=== PATIENT | female | born 1980 | race Caucasian/White ===

== ENCOUNTER 2019-11-26 08:05 | Outpatient (REF) | payer OTHER, SELFPAY ==
--- NOTE | 2019-11-26 08:25 | EMG_ITS ---
Bilateral tibial and peroneal motor studies were performed. Bilateral superficial peroneal, sural, median, lateral, plantar sensory studies were performed. Tibial H reflexes were obtained and paraspinal muscles were tested with a needle. IMPRESSION: Mild axonal sensorimotor peripheral neuropathy with no evidence of tarsal tunnel syndrome or radiculopathy. MD DELMA Cruz/ARIC / [id number]
== END 2019-11-26 08:06 | disposition home or self-care (01) ==
LOC: HO.NEURO 08:05
PROVIDERS: PCP Internal Medicine; Visit Provider Internal Medicine
DX: M79.672 Pain in left foot (principal); M79.671 Pain in right foot
CPT/HCPCS: 95860; 95861; 95913

== ENCOUNTER → 2019-12-07 13:03 | Outpatient (REF) | payer OTHER, SELFPAY | LOC: HO.SL 13:03 | PROVIDERS: PCP Internal Medicine; Visit Provider Internal Medicine | DX: Z13.89 Encounter for screening for other disorder (principal) ==

== ENCOUNTER 2020-02-21 09:36 | Emergency (ER) | payer OTHER, SELFPAY ==
[2020-02-21 09:44] VITALS: BP 116/70; BP 135/86; PULSE 66; PULSE 67; RESP 18; TEMP 36.6; O2SAT 100; O2SAT 96; BMI 28.1
--- NOTE | 2020-02-21 09:54 | ED.ABDPAIN ---
HPI - Abdominal Pain General Chief Complaint: Abdominal Pain Stated Complaint: EPIGASTRIC PAIN PER EMS Time Seen by Provider: 02/21/20 09:52 Source: patient Mode of arrival: EMS Limitations: no limitations History of Present Illness HPI narrative: This is a 39 years old female arrives by ambulance with a chief complaint of epigastric abdominal pain nausea vomiting and diarrhea since yesterday. She received 4 mg of Zofran by EMS. Pain is localized in the epigastric area without radiation MD elicited complaint: abdominal pain Pertinent past history: none Onset (ago): hour(s) (12) Pain Consistency: constant Location: epigastric Severity: mild Quality: cramping Radiation: none Migration to: no migration Relieving factors: nothing Related Data Home Medications Medication Instructions Recorded Confirmed ergocalciferol (vitamin D2) 1,250 1,250 mcg PO QWEEK 01/28/20 mcg (50,000 unit) capsule gabapentin 300 mg capsule mg PO 01/28/20 meclizine 25 mg tablet mg PO 01/28/20 omeprazole 20 mg capsule,delayed 20 mg PO QAM 01/28/20 release vitamin with calcium 1 tab PO DAILY 01/28/20 no.72-iron 27 mg-folic acid 1 mg tablet Previous Rx's Medication Instructions Recorded azithromycin 250 mg tablet 250 mg PO DAILY 5 Days #6 tab 01/28/20 cetirizine 10 mg capsule 10 mg PO DAILY 15 Days #15 cap 01/28/20 clotrimazole 2 % vaginal cream 1 appful VAGINAL BEDTIME 3 Days 01/28/20 #21 g oxycodone 5 mg PO Q8H PRN #12 cap 02/21/20 Allergies Allergy/AdvReac Type Severity Reaction Status Date / Time aspirin [ASPIRIN] Allergy Unknown UNKNOWN, Unverified 11/05/19 19:08 swelling penicillin V Allergy Unknown rash Unverified 07/16/19 00:00 shellfish derived Allergy Unknown UNKNOWN Unverified 11/05/19 19:08 [SHELLFISH DERIVED] Shrimp Allergy Unknown anaphylaxis Uncoded 07/16/19 00:00 tape of ekg trace Allergy Unknown rash Uncoded 07/16/19 00:00 Review of Systems Review of Systems Denies any fever, chills, chest pain urinary symptoms Yes all other systems are reviewed and are negative Physical Exam Vital Signs: Vital Signs: Last Vital Signs Temp 98.3 F 02/21/20 15:50 Pulse 85 02/21/20 15:50 Resp 16 02/21/20 15:50 BP 116/65 02/21/20 15:50 Pulse Ox 100 02/21/20 15:50 Body Mass Index 28.1 Const: General: cooperative and healthy appearing Orientation/consciousness: oriented to person, oriented to place and oriented to time HENMT: Head: Yes normal to inspection Eyes: General: appearance normal, both eyes and all related structures Neck: Neck: Yes normal visual inspection, Yes full ROM, Yes no lymphadenopathy and Yes no meningeal signs Chest: Chest palpation & inspection: normal inspection of the chest Resp: Effort & Inspection: normal respiratory effort Auscultation: clear to auscultation bilaterally Cardio: Jugular venous distension: no JVD Palpation: normal PMI GI: Inspection: Yes normal to inspection Palpation (GI): Soft to palpation and Tenderness to palpation present (GI) (epigastric area) Skin: General skin exam: no rashes or lesions noted Neuro: General: oriented to person, oriented to place, oriented to time and no meningeal signs Extrem: General: Yes normal to inspection, Yes full ROM and Yes capillary refill normal Psych: Appearance: grossly normal Mental Status: mental status grossly normal Course Course Course Narrative: Patient is feeling better at this time a CT scan of the abdomen and pelvis not acute disease a normal appendix we will discharge the patient home She did have low bicarb 16 mm but she received 2 L of normal saline before discharge she was tolerating p.o. well MDM - Abdominal Pain Lab Data Result diagrams: 02/21/20 11:27 02/21/20 11:27 Labs: Lab Results 02/21/20 02/21/20 02/21/20 Range/Units 11:27 11:27 11:27 WBC 14.7 H (4.8-10.8) X10*3/uL RBC 4.49 (4.20-5.50) X10*6/uL Hgb 11.9 L (12.0-16.0) g/dl Hct 38.2 (37-47) % MCV 85.1 (80-98) fL MCH 26.5 L (27.0-33.0) pg MCHC 31.2 (31.0-35.0) g/dl RDW 14.0 (11.0-16.0) % Plt Count 258 (160-400) X10*3/uL MPV 10.5 (9.4-12.3) fL Immature Gran % (Auto) 0.3 (0.0-0.4) % Neut % (Auto) 86.9 H (45-73) % Lymph % (Auto) 7.3 L (20-40) % [place] % (Auto) 4.9 (2-11) % Eos % (Auto) 0.5 (0-4) % Baso % (Auto) 0.1 (0-2) % Lymph # (Auto) 1.1 L (1.2-4.9) X10*3/uL [place] # (Auto) 0.7 (0.1-1.2) X10*3/uL Eos # (Auto) 0.1 (0.0-0.4) X10*3/uL Baso # (Auto) 0.0 (0.0-0.2) X10*3/uL Abs Immat Gran (auto) 0.05 H (0.00-0.03) X10*3/uL Absolute Neuts (auto) 12.8 H (2.0-8.3) X10*3/uL Absolute Nucleated RBC 0.000 (0.0-0.012) X10*3/uL Nucleated RBC % (auto) 0.0 (0.0-0.2) /100WBC Sodium 136 (135-145) mmol/L Potassium 5.4 H (3.3-5.1) mmol/l Chloride 111 H (96-108) mmol/L Carbon Dioxide 16 L (22-29) mmol/L Anion Gap 14 (12-20) BUN 14 (9-16) mg/dL Creatinine 0.73 (0.5-1.4) mg/dL Estim Creat Clear Calc 111.4 Estimated GFR > 60 Random Glucose 110 (60-115) mg/dL Calcium 8.4 (8.4-10.2) mg/dL Total Bilirubin < 0.2 (0.0-1.0) mg/dL AST 20 (5-31) U/L ALT 11 (0-31) U/L Alkaline Phosphatase 63 (39-117) U/L Total Protein 7.6 (6.5-8.0) g/dL Albumin 4.0 (3.5-5.0) g/dL Lipase 31 (8-78) U/L Beta HCG, Quant < 2 mIU/mL Urine Color Urine Appearance Urine pH (5.0-8.0) Ur Specific [place] (1.005-1.025) Urine Protein (NEG-TRACE) MG/DL Urine Glucose (UA) (NEG) MG/DL Urine Ketones (NEG) MG/DL Urine Blood (NEG) Urine Nitrite (NEG) Ur Leukocyte Esterase (NEG) Urine RBC (0) /HPF Urine WBC (0-4) /HPF Ur Squamous Epith Cells /LPF Urine Bacteria /LPF Coronavirus (PCR) (Negative) Influenza Type A (PCR) (Negative) Influenza Type B (PCR) (Negative) RSV RNA Qual (PCR) (Negative) 02/21/20 02/21/20 Range/Units 15:52 15:52 WBC (4.8-10.8) X10*3/uL RBC (4.20-5.50) X10*6/uL Hgb (12.0-16.0) g/dl Hct (37-47) % MCV (80-98) fL MCH (27.0-33.0) pg MCHC (31.0-35.0) g/dl RDW (11.0-16.0) % Plt Count (160-400) X10*3/uL MPV (9.4-12.3) fL Immature Gran % (Auto) (0.0-0.4) % Neut % (Auto) (45-73) % Lymph % (Auto) (20-40) % [place] % (Auto) (2-11) % Eos % (Auto) (0-4) % Baso % (Auto) (0-2) % Lymph # (Auto) (1.2-4.9) X10*3/uL [place] # (Auto) (0.1-1.2) X10*3/uL Eos # (Auto) (0.0-0.4) X10*3/uL Baso # (Auto) (0.0-0.2) X10*3/uL Abs Immat Gran (auto) (0.00-0.03) X10*3/uL Absolute Neuts (auto) (2.0-8.3) X10*3/uL Absolute Nucleated RBC (0.0-0.012) X10*3/uL Nucleated RBC % (auto) (0.0-0.2) /100WBC Sodium (135-145) mmol/L Potassium (3.3-5.1) mmol/l Chloride (96-108) mmol/L Carbon Dioxide (22-29) mmol/L Anion Gap (12-20) BUN (9-16) mg/dL Creatinine (0.5-1.4) mg/dL Estim Creat Clear Calc Estimated GFR Random Glucose (60-115) mg/dL Calcium (8.4-10.2) mg/dL Total Bilirubin (0.0-1.0) mg/dL AST (5-31) U/L ALT (0-31) U/L Alkaline Phosphatase (39-117) U/L Total Protein (6.5-8.0) g/dL Albumin (3.5-5.0) g/dL Lipase (8-78) U/L Beta HCG, Quant mIU/mL Urine Color YELLOW Urine Appearance CLEAR Urine pH 5.5 (5.0-8.0) Ur Specific [place] >= 1.030 H (1.005-1.025) Urine Protein NEG (NEG-TRACE) MG/DL Urine Glucose (UA) NEG (NEG) MG/DL Urine Ketones NEG (NEG) MG/DL Urine Blood TRACE (NEG) Urine Nitrite NEG (NEG) Ur Leukocyte Esterase NEG (NEG) Urine RBC 1-4 (0) /HPF Urine WBC 0 (0-4) /HPF Ur Squamous Epith Cells 1+ /LPF Urine Bacteria NONE /LPF Coronavirus (PCR) NEGATIVE (Negative) Influenza Type A (PCR) NEGATIVE (Negative) Influenza Type B (PCR) NEGATIVE (Negative) RSV RNA Qual (PCR) NEGATIVE (Negative) Discharge Plan Discharge Clinical Impression: Abdominal pain, Diarrhea Patient Disposition: Home, Self-Care Prescriptions: New oxycodone 5 mg capsule 5 mg PO Q8H PRN (Reason: pain) Qty: 12 RF: 0 No Action azithromycin 250 mg tablet 250 mg PO DAILY 5 Days Qty: 6 RF: 0 Zyrtec 10 mg capsule 10 mg PO DAILY 15 Days Qty: 15 RF: 0 clotrimazole 2 % cream 1 appful vaginal BEDTIME 3 Days Qty: 21 RF: 0 Referrals: [place] Leatha,Harper, MD [Primary Care Provider] - 2 days (Please follow-up with your primary care physician return to the emergency room review worse, regular fluids,) Interventions: ED Discharge Assessment Last Done: 02/21/20 16:21 Discharge Date/Time: 02/21/20 16:22 [facility] Past Medical History Medical History (Updated 02/22/20 @ 00:00 by Ray Valenzuela) Sinusitis Social History Social History Smoking Status: Never smoker Use of substances other than those prescribed or required for medical reasons: No Advance Directives: No Advance Directives Information Provided: No
[2020-02-21] MEDS: 0.9 % Sodium Chloride 1,000 ML 999 ML IVCONT (10:11)
[2020-02-21] MEDS: Morphine Sulfate 4 MG/ML CARTRIDGE IVPUSH (10:12)
[2020-02-21 10:51] VITALS: BP 121/66; PULSE 63; RESP 18; O2SAT 96
--- NOTE | 2020-02-21 10:52 | PC.NURSE ---
pt sleeping, but easily arousable, pt reports no pain relief after the morphine, pain 10/10. no vomiting since the arrival to the hospital
--- NOTE | 2020-02-21 10:55 | PC.NURSE ---
attempted x2 to draw bloods but pt is a hard stick
[2020-02-21 11:38] LABS: Basophils Percent Auto 0.1 % (0-2); Eosinophils Absolute Auto 0.1 X10*3/uL (0.0-0.4); Eosinophils Percent Auto 0.5 % (0-4); Hematocrit 38.2 % (37-47); Hemoglobin 11.9 g/dl (12.0-16.0); Imm Gran Abs Auto 0.05 X10*3/uL (0.00-0.03); Imm Gran Pct Auto 0.3 % (0.0-0.4); Lymphocytes Absolute Auto 1.1 X10*3/uL (1.2-4.9); Lymphocytes Percent Auto 7.3 % (20-40); MANUAL DIFF FLAG NO; Mean Corpuscular HGB Conc 31.2 g/dl (31.0-35.0); Mean Corpuscular Hemoglobin 26.5 pg (27.0-33.0); Mean Corpuscular Volume 85.1 fL (80-98); Mean Platelet Volume 10.5 fL (9.4-12.3); Monocytes Absolute Auto 0.7 X10*3/uL (0.1-1.2); Monocytes Percent Auto 4.9 % (2-11); Neutrophils Absolute Auto 12.8 X10*3/uL (2.0-8.3); Neutrophils Percent Auto 86.9 % (45-73); Platelet Count 258 X10*3/uL (160-400); Red Blood Count 4.49 X10*6/uL (4.20-5.50); White Blood Count 14.7 X10*3/uL (4.8-10.8)
[2020-02-21 12:08] LABS: HCG Quantitative < 2 mIU/mL
[2020-02-21 12:13] LABS: Alanine Aminotransferase 11 U/L (0-31); Alkaline Phosphatase 63 U/L (39-117); Anion Gap 14 (12-20); Aspartate Amino Transferase 20 U/L (5-31); Bilirubin Total < 0.2 mg/dL (0.0-1.0); Blood Urea Nitrogen 14 mg/dL (9-16); Calcium 8.4 mg/dL (8.4-10.2); Carbon Dioxide 16 mmol/L (22-29); Chloride 111 mmol/L (96-108); Creatinine Clr Calc Pharmacy 111.4; Estimated Glomerular Filt Rate > 60; Glucose Random 110 mg/dL (60-115); Lipase 31 U/L (8-78); Potassium 5.4 mmol/l (3.3-5.1); Sodium 136 mmol/L (135-145); Total Protein 7.6 g/dL (6.5-8.0)
--- NOTE | 2020-02-21 12:54 | CT_ITS ---
EXAMINATION: CT ABDOMEN AND PELVIS WITH CONTRAST CLINICAL INFORMATION: Pain COMPARISON: None TECHNIQUE: Multidetector volumetric images were obtained from the superior aspect of the liver through the pubic symphysis following administration 85 mL of Omnipaque 350 intravenous contrast. Sagittal and coronal reformatted images were obtained on the technologist's workstation. Oral contrast: No This CT examination was performed using dose optimization techniques as appropriate, variously including the following: *Automated exposure control *Adjustment of mA and/or kV according to patient size (this includes techniques or standardized protocols for targeted exams where dose is matched to indication/reason for exam; i.e. extremities or head) *Use of iterative reconstruction technique DLP: 780 mGy-cm FINDINGS: LUNG BASES: The visualized lung bases are unremarkable. LIVER, GALLBLADDER, AND BILIARY TREE: The liver is normal in size, shape, and attenuation. No focal hepatic lesion or biliary ductal dilatation is present. The gallbladder is unremarkable with no evidence of radiopaque gallstones, gallbladder wall thickening, or obvious pericholecystic inflammatory changes. PANCREAS: Unremarkable. SPLEEN: Unremarkable. ADRENAL GLANDS: Unremarkable. KIDNEYS AND URETERS: The kidneys are normal in size, shape, and attenuation. No hydronephrosis, hydroureter, or calculi seen. No perinephric stranding. BLADDER: Unremarkable. GASTROINTESTINAL TRACT: Fluid-filled large bowel without evidence for any bowel wall thickening or active inflammation. Equivocal mild inflammation of the ileal loops within the pelvis. Appendix normal. No definite bowel wall thickening. ABDOMINAL WALL: No significant hernia is appreciated. LYMPH NODES: Normal. VASCULAR: Unremarkable. PELVIC VISCERA: Unremarkable. OSSEOUS STRUCTURES: Unremarkable. CT/CT abdomen pelvis w con IMPRESSION: No definitive significant findings. There is disordered motility with likely minimal changes of nonspecific enterocolitis as detailed above.
[2020-02-21 14:34] VITALS: BP 113/73; PULSE 84; RESP 18; O2SAT 100
--- NOTE | 2020-02-21 14:35 | PC.NURSE ---
pt sound asleep, respirations even and unlabored, pt easily arousbale reports lower abd pain now instead of the epigastric area, states having diarrhea x2 since in the ed, watery diarrhea
[2020-02-21] MEDS: iohexoL 350 MG/ML 100 ML INFUS..BTL IV (15:10)
[2020-02-21 15:50] VITALS: BP 116/65; PULSE 85; RESP 16; TEMP 36.8; O2SAT 100
[2020-02-21 16:16] LABS: Appearance Urine CLEAR; Color Urine YELLOW; Glucose Urine UA NEG (NEG); Leukocyte Esterase Urine NEG (NEG); Nitrite Urine NEG (NEG); PH 5.5 (5.0-8.0); Specific Gravity - Urine >= 1.030 (1.005-1.025); Urine Blood TRACE (NEG); Urine Ketones NEG (NEG); Urine Protein NEG (NEG-TRACE)
[2020-02-21 16:37] LABS: Squamous Epithelial Cell Urine 1+ /LPF; WBC Urine 0 /HPF (0-4)
[2020-02-21 16:41] LABS: Influenza A PCR NEGATIVE (Negative); Influenza B PCR NEGATIVE (Negative); Resp Syncy Virus RNA Qual PCR NEGATIVE (Negative); SARS COV2 PCR INHOUSE NEGATIVE (Negative)
== END 2020-02-21 16:22 | disposition home or self-care (01) ==
PROVIDERS: Emergency Provider Emergency Medicine; PCP Internal Medicine
DX: R10.13 Epigastric pain (principal); R19.7 Diarrhea, unspecified; Z79.899 Other long term (current) drug therapy; Z20.828 Contact with and (suspected) exposure to other viral communicable diseases
CPT/HCPCS: 0241U; 36415; 74177; 80053; 81001; 83690; 84702; 85025; 96361; 96374; 99284; J2270; Q9967

== ENCOUNTER 2020-02-23 14:42 | Outpatient (REF) | payer OTHER, SELFPAY ==
--- NOTE | 2020-02-23 14:49 | MM_ITS ---
EXAMINATION: MM SCREENING DIGITAL BREAST TOMOSYNTHESIS, BILATERAL CLINICAL INFORMATION: Screening. Asymptomatic. Age 39. No prior breast imaging. No known family history breast cancer. The lifetime risk of breast cancer based on the Tyrer-Cuzick Model is 9%. COMPARISON: None (current study represents initial baseline exam). TECHNIQUE: Digital breast tomosynthesis is performed in both the craniocaudal and mediolateral oblique views along with computer-aided detection (CAD). Synthesized 2D images are generated from the tomosynthesis. Additional exaggerated left CC view is provided. FINDINGS: There are scattered areas of fibroglandular density (ACR BI-RADS breast composition Category b). There are no significant masses, abnormal calcifications, or other abnormalities. The axilla and skin contours are unremarkable. MM/MM tomosynthesis screening BI IMPRESSION: No mammographic evidence of malignancy. ASSESSMENT: BI-RADS 1: Negative RECOMMENDATION: Routine annual mammography screening. This patient's information was entered into a reminder system with a target due date for their next mammogram.
== END 2020-02-23 14:43 | disposition home or self-care (01) ==
LOC: HO.MAMMO 14:42
PROVIDERS: Visit Provider Internal Medicine
DX: Z12.31 Encounter for screening mammogram for malignant neoplasm of breast (principal)
CPT/HCPCS: 77063; 77067

== ENCOUNTER 2020-03-31 11:01 | Outpatient (REF) | payer OTHER, SELFPAY ==
[2020-03-31 17:10] LABS: MANUAL DIFF FLAG NO
[2020-03-31 17:15] LABS: Basophils Percent Auto 0.4 % (0-2); Eosinophils Absolute Auto 0.3 X10*3/uL (0.0-0.4); Eosinophils Percent Auto 3.4 % (0-4); Hematocrit 35.6 % (37-47); Hemoglobin 11.5 g/dl (12.0-16.0); Imm Gran Abs Auto 0.02 X10*3/uL (0.00-0.03); Imm Gran Pct Auto 0.2 % (0.0-0.4); Lymphocytes Absolute Auto 2.3 X10*3/uL (1.2-4.9); Lymphocytes Percent Auto 28.5 % (20-40); Mean Corpuscular HGB Conc 32.3 g/dl (31.0-35.0); Mean Corpuscular Hemoglobin 26.7 pg (27.0-33.0); Mean Corpuscular Volume 82.6 fL (80-98); Mean Platelet Volume 10.4 fL (9.4-12.3); Monocytes Absolute Auto 0.7 X10*3/uL (0.1-1.2); Monocytes Percent Auto 7.9 % (2-11); Neutrophils Absolute Auto 4.9 X10*3/uL (2.0-8.3); Neutrophils Percent Auto 59.6 % (45-73); Platelet Count 294 X10*3/uL (160-400); Red Blood Count 4.31 X10*6/uL (4.20-5.50); Red Cell Distribution Width 13.9 % (11.0-16.0); White Blood Count 8.2 X10*3/uL (4.8-10.8)
[2020-03-31 17:48] LABS: Anion Gap 11 (12-20); Blood Urea Nitrogen 10 mg/dL (9-16); C Reactive Protein 0.22 mg/dL (< or = 0.50); Carbon Dioxide 24 mmol/L (22-29); Chloride 109 mmol/L (96-108); Estimated Glomerular Filt Rate > 60; Glucose Fasting 91 mg/dL (60-99); Potassium 3.9 mmol/L (3.3-5.1); Sodium 140 mmol/L (135-145)
== END 2020-03-31 11:02 | disposition home or self-care (01) ==
LOC: HO.LAB 11:01
PROVIDERS: Absent Provider Internal Medicine; PCP Internal Medicine; Visit Provider Nurse Practitioner
DX: R19.7 Diarrhea, unspecified (principal); R10.9 Unspecified abdominal pain; K21.9 Gastro-esophageal reflux disease without esophagitis; J32.9 Chronic sinusitis, unspecified
CPT/HCPCS: 36415; 80048; 85025; 86140; 87045; 87046; 87077; 87324; 87449

== ENCOUNTER → 2020-04-20 15:44 | Outpatient (BNVA) | payer OTHER, SELFPAY | PROVIDERS: PCP Internal Medicine; Visit Provider Nurse Practitioner ==

== ENCOUNTER → 2020-04-25 14:33 | Outpatient (BNVA) | payer OTHER, SELFPAY | PROVIDERS: PCP Internal Medicine; Visit Provider Nurse Practitioner | CPT/HCPCS: 99212 ==

== ENCOUNTER → 2020-05-11 14:00 | Outpatient (BNVA) | payer OTHER, SELFPAY | PROVIDERS: PCP Internal Medicine; Visit Provider Nurse Practitioner | DX: R10.9 Unspecified abdominal pain (principal); K59.00 Constipation, unspecified; K21.9 Gastro-esophageal reflux disease without esophagitis; K52.9 Noninfective gastroenteritis and colitis, unspecified; Z79.899 Other long term (current) drug therapy | CPT/HCPCS: 99212 ==

== ENCOUNTER 2020-06-09 | Emergency (ER) | payer OTHER, SELFPAY ==
[2020-06-09 00:23] VITALS: BP 137/85; PULSE 80; RESP 18; TEMP 36.9; O2SAT 100; BMI 28.5
[2020-06-09 00:48] LABS: Glucose Urine UA NEG (NEG); Leukocyte Esterase Urine NEG (NEG); Nitrite Urine NEG (NEG); PH 5.5 (5.0-8.0); Specific Gravity - Urine >= 1.030 (1.005-1.025); Urine Blood NEG (NEG); Urine Ketones 15 MG/DL (NEG); Urine Protein NEG (NEG-TRACE)
[2020-06-09 00:56] LABS: Appearance Urine CLEAR; Color Urine YELLOW
[2020-06-09 00:58] LABS: UPreg QC Valid YES; Urine Pregnancy POSITIVE (NEGATIVE)
--- NOTE | 2020-06-09 02:29 | ED.GENADULT ---
HPI - General Adult General Chief complaint: Abdominal Pain Stated complaint: Abd pain/5 weeks Time Seen by Provider: 06/09/20 02:27 Source: patient Mode of arrival: ambulatory Limitations: no limitations Related Data Home Medications Medication Instructions Recorded Confirmed ergocalciferol (vitamin D2) 1,250 1,250 mcg PO QWEEK 01/28/20 05/16/20 mcg (50,000 unit) capsule gabapentin 300 mg capsule mg PO 01/28/20 05/16/20 meclizine 25 mg tablet mg PO 01/28/20 05/16/20 vitamin with calcium 1 tab PO DAILY 01/28/20 05/16/20 no.72-iron 27 mg-folic acid 1 mg tablet Previous Rx's Medication Instructions Recorded cetirizine 10 mg capsule 10 mg PO DAILY 15 Days #15 cap 01/28/20 clotrimazole 2 % vaginal cream 1 appful VAGINAL BEDTIME 3 Days 01/28/20 #21 g Lactobacillus rhamnosus GG 10 1 cap PO DAILY 30 Days #30 cap 04/25/20 billion cell capsule sennosides 8.6 mg-docusate sodium 2 tab-cap PO BEDTIME 30 Days #60 04/25/20 50 mg tablet tab omeprazole 40 mg capsule,delayed 40 mg PO BID 30 Days #60 cap 05/11/20 release dicyclomine 20 mg tablet 20 mg PO QID #120 tab 05/24/20 Allergies Allergy/AdvReac Type Severity Reaction Status Date / Time aspirin [ASPIRIN] Allergy Unknown UNKNOWN, Verified 06/09/20 00:23 swelling penicillin V Allergy Unknown rash Verified 06/09/20 00:23 shrimp Allergy anaphlaxysi Verified 06/09/20 00:23 s tape of ekg trace Allergy Unknown rash Uncoded 06/09/20 00:23 [facility] Past Medical History Medical History (Updated 05/16/20 @ 14:49 by Fiona Zhang MD) Dizziness Ear discomfort Enterocolitis Sinusitis Surgical History No history of previous surgery Family History Family History Father Cancer Mother Diabetes Maternal Grandmother Cancer Paternal Grandmother Cancer Social History Social History (Updated 05/16/20 @ 13:30 by Fiona Zhang MD) Alcohol intake: former Smoking Status: Former smoker Tobacco Type: Cigarette Advance Directives: No Advance Directives Information Provided: Yes Physical Exam Vital Signs: Vital Signs: Last Vital Signs Temp 98.4 F 06/09/20 00:23 Pulse 80 06/09/20 00:23 Resp 18 06/09/20 00:23 BP 137/85 06/09/20 00:23 Pulse Ox 100 06/09/20 00:23 Body Mass Index 28.5 Medical Decision Making Lab Data Labs: Lab Results 06/09/20 06/09/20 Range/Units 00:35 00:35 Urine Color YELLOW Urine Appearance CLEAR Urine pH 5.5 (5.0-8.0) Ur Specific [place] >= 1.030 H (1.005-1.025) Urine Protein NEG (NEG-TRACE) MG/DL Urine Glucose (UA) NEG (NEG) MG/DL Urine Ketones 15 (NEG) MG/DL Urine Blood NEG (NEG) Urine Nitrite NEG (NEG) Ur Leukocyte Esterase NEG (NEG) Urine Test POSITIVE H (NEGATIVE) Discharge Plan Discharge Prescriptions: No Action dicyclomine 20 mg tablet 20 mg PO QID Qty: 120 RF: 2 meclizine 25 mg tablet PO RF: 0 gabapentin 300 mg capsule PO RF: 0 ergocalciferol (vitamin D2) 1,250 mcg (50,000 unit) capsule 1,250 mcg PO QWEEK RF: 0 Vitamin Plus Low Iron 27 mg iron- 1 mg tablet 1 tab PO DAILY RF: 0 Zyrtec 10 mg capsule 10 mg PO DAILY 15 Days Qty: 15 RF: 0 clotrimazole 2 % cream 1 appful vaginal BEDTIME 3 Days Qty: 21 RF: 0 omeprazole 40 mg capsule,delayed release(DR/EC) 40 mg PO BID 30 Days Qty: 60 RF: 4 sennosides-docusate sodium [Lax Stool Softener With Senna] 8.6-50 mg tablet 2 tab-cap PO BEDTIME 30 Days Qty: 60 RF: 6 Culturelle 10 billion cell capsule 1 cap PO DAILY 30 Days Qty: 30 RF: 6
--- NOTE | 2020-06-09 02:31 | PC.NURSE ---
Patient left without being seen by ED provider. Ambulated with steady gait out of ED, encouraged to stay by this RN. Staff Meat Scrubber also present for interaction. Pt refused to stay for evaluation, and ambulated out of ED stating no, I'm not staying, and I'm not waiting for a doctor, I'm leaving . lehr operator (Ishmael Velarde) aware.
== END 2020-06-09 02:34 | disposition left against medical advice (07) ==
PROVIDERS: Internal Medicine; Emergency Provider Emergency Medicine Emergency Medical Services; PCP Internal Medicine
DX: O26.891 Other specified pregnancy related conditions, first trimester (principal); R10.9 Unspecified abdominal pain; O09.521 Supervision of elderly multigravida, first trimester; Z3A.01 Less than 8 weeks gestation of pregnancy
CPT/HCPCS: 81003; 81025; 99282; 99283

== ENCOUNTER → 2020-09-08 08:54 | Outpatient (BNVA) | payer OTHER, SELFPAY | PROVIDERS: Visit Provider Nurse Practitioner ==

== ENCOUNTER → 2021-01-10 13:20 | Outpatient (BNVA) | payer OTHER, SELFPAY | PROVIDERS: Visit Provider Nurse Practitioner | DX: K59.00 Constipation, unspecified (principal); K21.9 Gastro-esophageal reflux disease without esophagitis; R10.9 Unspecified abdominal pain; R19.7 Diarrhea, unspecified ==

== ENCOUNTER → 2021-05-17 11:06 | Outpatient (BNVA) | payer OTHER, SELFPAY | PROVIDERS: PCP Internal Medicine; Visit Provider Nurse Practitioner Family | DX: M54.12 Radiculopathy, cervical region (principal); M79.18 Myalgia, other site | CPT/HCPCS: 99212 ==

== ENCOUNTER → 2021-05-25 13:42 | Outpatient (REF) | payer OTHER, SELFPAY ==
--- NOTE | 2021-05-25 13:47 | ECG_ITS ---
Test Reason : PRECORDIAL PAIN Blood Pressure : / mmHG Vent. Rate : 065 BPM Atrial Rate : 065 BPM P-R Int : 130 ms QRS Dur : 082 ms QT Int : 436 ms P-R-T Axes : 064 066 062 degrees QTc Int : 453 ms Normal sinus rhythm with sinus arrhythmia Normal ECG When compared with ECG of 16-SEP-2017 10:12, No significant change was found Referred By: Fiona Zhang Electronically Signed By:DAVE THOMAS MD
== END ==
LOC: HO.CARD 13:42
PROVIDERS: PCP Internal Medicine; Visit Provider Internal Medicine
DX: R07.2 Precordial pain (principal)
CPT/HCPCS: 93005

== ENCOUNTER → 2021-05-29 10:58 | Outpatient (BNVA) | payer OTHER, SELFPAY | PROVIDERS: PCP Internal Medicine | DX: N39.3 Stress incontinence (female) (male) (principal) | CPT/HCPCS: 51798; 99202 ==

== ENCOUNTER → 2021-07-04 14:54 | Outpatient (BNVA) | payer OTHER, SELFPAY | PROVIDERS: PCP Internal Medicine; Visit Provider Nurse Practitioner Family | DX: Z13.89 Encounter for screening for other disorder (principal) ==

== ENCOUNTER → 2021-08-30 08:50 | Outpatient (BNVA) | payer OTHER, SELFPAY | PROVIDERS: PCP Internal Medicine; Visit Provider Nurse Practitioner Family | DX: M79.18 Myalgia, other site (principal); M54.12 Radiculopathy, cervical region; R29.898 Other symptoms and signs involving the musculoskeletal system | CPT/HCPCS: 20552; 99212; J3300 ==

== ENCOUNTER → 2021-08-31 10:02 | Outpatient (BNVA) | payer OTHER, SELFPAY | PROVIDERS: PCP Internal Medicine; Visit Provider Nurse Practitioner Family | DX: R06.83 Snoring (principal); R06.81 Apnea, not elsewhere classified; R40.0 Somnolence; F41.9 Anxiety disorder, unspecified | CPT/HCPCS: 99202 ==

== ENCOUNTER 2021-09-14 09:05 | Outpatient (REF) | payer OTHER, SELFPAY ==
--- NOTE | 2021-09-14 | EMG_ITS ---
Left median and ulnar motor and sensory studies were performed, left radial sensory study was performed, and paraspinal and limb muscles were tested with a needle. IMPRESSION: This study did not reveal any significant abnormality to suggest entrapment neuropathy or radiculopathy. MD DELMA Cruz/ARIC / [id number]
== END 2021-09-14 09:06 | disposition home or self-care (01) ==
LOC: HO.NEURO 09:05
PROVIDERS: PCP Internal Medicine; Visit Provider Nurse Practitioner Family
DX: R29.898 Other symptoms and signs involving the musculoskeletal system (principal); M54.12 Radiculopathy, cervical region
CPT/HCPCS: 95886; 95910

== ENCOUNTER → 2021-09-19 14:01 | Outpatient (BNVA) | payer OTHER, SELFPAY | PROVIDERS: PCP Internal Medicine; Visit Provider Nurse Practitioner | DX: K59.00 Constipation, unspecified (principal); K57.92 Diverticulitis of intestine, part unspecified, without perforation or abscess without bleeding; K21.9 Gastro-esophageal reflux disease without esophagitis; Z79.899 Other long term (current) drug therapy | CPT/HCPCS: 99212 ==

== ENCOUNTER 2021-09-20 08:59 | Outpatient (REF) | payer OTHER, SELFPAY ==
--- NOTE | ~2021-09-20 | MM_ITS ---
EXAMINATION: MM SCREENING DIGITAL BREAST TOMOSYNTHESIS, BILATERAL CLINICAL INFORMATION: Screening. Asymptomatic. The lifetime risk of breast cancer based on the Tyrer-Cuzick Model is 8%. COMPARISON: Mammography: 02/23/2020 (baseline) TECHNIQUE: Digital breast tomosynthesis is performed in both the craniocaudal and mediolateral oblique views along with computer-aided detection (CAD). Synthesized 2D images are generated from the tomosynthesis. FINDINGS: There are scattered areas of fibroglandular density (ACR BI-RADS breast composition Category b). There are no significant masses, abnormal calcifications, or other abnormalities. Parenchymal pattern is similar to baseline exam. No developing density. The axilla are unremarkable. MM/MM tomosynthesis screening BI IMPRESSION: No mammographic evidence of malignancy. ASSESSMENT: BI-RADS 1: Negative RECOMMENDATION: Routine annual mammography screening. This patient's information was entered into a reminder system with a target due date for their next mammogram.
== END 2021-09-20 09:00 | disposition home or self-care (01) ==
LOC: HO.MAMMO 08:59
PROVIDERS: PCP Internal Medicine; Visit Provider Internal Medicine
DX: Z12.31 Encounter for screening mammogram for malignant neoplasm of breast (principal)
CPT/HCPCS: 77063; 77067

== ENCOUNTER 2021-10-04 15:32 | Outpatient (REF) | payer OTHER, SELFPAY ==
[2021-10-04 16:01] LABS: MANUAL DIFF FLAG NO
[2021-10-04 17:03] LABS: Basophils Percent Auto 0.5 % (0-2); Eosinophils Absolute Auto 0.2 X10*3/uL (0.0-0.4); Eosinophils Percent Auto 2.9 % (0-4); Hematocrit 39.8 % (37.0-47.0); Hemoglobin 13.3 g/dl (12.0-16.0); Imm Gran Abs Auto 0.02 X10*3/uL (0.00-0.03); Imm Gran Pct Auto 0.3 % (0.0-0.4); Lymphocytes Percent Auto 25.6 % (20-40); Mean Corpuscular HGB Conc 33.4 g/dl (31.0-35.0); Mean Corpuscular Hemoglobin 28.5 pg (27.0-33.0); Mean Corpuscular Volume 85.4 fL (80.0-98.0); Mean Platelet Volume 10.9 fL (9.4-12.3); Monocytes Absolute Auto 0.6 X10*3/uL (0.1-1.2); Monocytes Percent Auto 7.5 % (2-11); Neutrophils Absolute Auto 4.8 x10*3/uL (2.0-8.3); Neutrophils Percent Auto 63.2 % (45-73); Platelet Count 288 X10*3/uL (160-400); Red Blood Count 4.66 X10*6/uL (4.20-5.50); Red Cell Distribution Width 13.3 % (11.0-16.0); White Blood Count 7.6 X10*3/uL (4.8-10.8)
[2021-10-04 17:28] LABS: Alanine Aminotransferase 11 U/L (0-31); Albumin Level 4.4 g/dL (3.5-5.0); Alkaline Phosphatase 73 U/L (39-117); Anion Gap 15 (12-20); Aspartate Amino Transferase 17 U/L (5-31); Bilirubin Total 0.2 mg/dL (0.0-1.0); Blood Urea Nitrogen 12 mg/dL (9-16); Calcium 9.3 mg/dL (8.4-10.2); Carbon Dioxide 23 mmol/L (22-29); Chloride 105 mmol/L (96-108); Cholesterol 238 mg/dL; Estimated Glomerular Filt Rate > 60; Glucose Fasting 93 mg/dL (60-99); HDL Cholesterol 42 mg/dL; LDL Cholesterol Calculated 157 mg/dl; Potassium 4.2 mmol/L (3.3-5.1); Sodium 139 mmol/L (135-145); Total Protein 7.9 g/dL (6.5-8.0); Triglycerides 199 mg/dL
[2021-10-04 17:49] LABS: Thyroid Stimulating Hormone 1.87 uIU/mL (0.32-4.0)
== END 2021-10-04 15:33 | disposition home or self-care (01) ==
LOC: HO.LAB 15:32
PROVIDERS: PCP Internal Medicine; Visit Provider Internal Medicine
DX: Z00.00 Encounter for general adult medical examination without abnormal findings (principal); R00.0 Tachycardia, unspecified; K57.92 Diverticulitis of intestine, part unspecified, without perforation or abscess without bleeding; K59.00 Constipation, unspecified; K21.9 Gastro-esophageal reflux disease without esophagitis; K59.04 Chronic idiopathic constipation; R10.12 Left upper quadrant pain
CPT/HCPCS: 36415; 80053; 80061; 84443; 85025; 99212

== ENCOUNTER → 2021-10-19 14:30 | Outpatient (BNVA) | payer OTHER, SELFPAY | PROVIDERS: PCP Internal Medicine; Visit Provider Nurse Practitioner | DX: K59.04 Chronic idiopathic constipation (principal); K57.92 Diverticulitis of intestine, part unspecified, without perforation or abscess without bleeding; K21.9 Gastro-esophageal reflux disease without esophagitis | CPT/HCPCS: 99212 ==

== ENCOUNTER → 2021-10-25 13:30 | Outpatient (REF) | payer OTHER, SELFPAY ==
--- NOTE | 2021-10-25 13:33 | ECG_ITS ---
Hook-up date: 2021-10-25 12:49:00 Duration: 25:27:00 Test Indications: TACHYCARDIA Medications: 32767 QRS complexes 9 Ventricular ectopics which represent <1 % of total QRS comp. 98 Supraventricular ectopics which represent <1 % of total QRS comp. * Paced QRS complexs which represent % of total QRS comp. VENTRICULAR ECTOPY 9 Isolated 0 Bigeminal Cycles 0 Couplets 0 Runs 0 Beats in Runs * Beats LONGEST at * BPM at :: -- * Beats FASTEST at * BPM at :: -- SUPRAVENTRICULAR ECTOPY 69 Isolated 7 Couplets 5 Runs 15 Beats in Runs 3 Beats LONGEST at 131 BPM at 01:36:05 2021-10-26 3 Beats FASTEST at 157 BPM at 01:41:17 2021-10-26 HEART RATES 56 MIN at 07:04:55 2021-10-26 86 AVG 139 MAX at 14:43:14 2021-10-25 LONGEST RR 1.0720 secs at 07:04:51 2021-10-26 S-T LEVELS Channel 1 - 128 mm at 12:49:00 2021-10-25 - 128 mm at 12:49:00 2021-10-25 Channel 2 - 128 mm at 12:49:00 2021-10-25 - 128 mm at 12:49:00 2021-10-25 Channel 3 - 128 mm at 03:20:81 -- - 128 mm at 03:20:81 Underlying rhythm is sinus; Average ventricular rate 86/min; range 56-139/min; Rare supraventricular and ventricular ectopy; Patient did not report any symptoms in the diary Referred By: Fiona Zhang Overread By: RE ELLIS
== END ==
LOC: HO.CARD 13:30
PROVIDERS: PCP Internal Medicine; Visit Provider Nurse Practitioner Family
DX: G47.33 Obstructive sleep apnea (adult) (pediatric) (principal); R00.0 Tachycardia, unspecified; R06.83 Snoring; R40.0 Somnolence
CPT/HCPCS: 93226; 95806

== ENCOUNTER → 2022-03-05 14:57 | Outpatient (BNVA) | payer OTHER, SELFPAY | PROVIDERS: PCP Internal Medicine; Visit Provider Nurse Practitioner Family | DX: G47.30 Sleep apnea, unspecified (principal) | CPT/HCPCS: 99212 ==

== ENCOUNTER 2022-04-12 13:11 | Outpatient (REF) | payer OTHER, SELFPAY ==
[2022-04-12 18:21] LABS: CT PCR NOT DETECTED (Not Detect.); NG PCR NOT DETECTED (Not Detect.)
[2022-04-13 11:11] LABS: BV Int Neg Control Negative (Negative); BV Int Pos Control Positive (Positive)
[2022-04-16 20:39] LABS: HPV mRNA E6/E7 rflx Not Detected (Not Detected)
== END 2022-04-12 13:12 | disposition home or self-care (01) ==
LOC: HO.LNP 13:11
PROVIDERS: PCP Internal Medicine; Visit Provider Advanced Practice Midwife
DX: Z01.419 Encounter for gynecological examination (general) (routine) without abnormal findings (principal); Z11.51 Encounter for screening for human papillomavirus (HPV); N89.8 Other specified noninflammatory disorders of vagina
CPT/HCPCS: 0353U; 87480; 87510; 87624; 87660; 88142

== ENCOUNTER → 2022-06-06 13:57 | Outpatient (BNVA) | payer OTHER, SELFPAY | PROVIDERS: PCP Internal Medicine; Visit Provider Nurse Practitioner Family | DX: G47.30 Sleep apnea, unspecified (principal) | CPT/HCPCS: 99212 ==

== ENCOUNTER → 2022-06-18 15:44 | Outpatient (BNVA) | payer OTHER, SELFPAY | PROVIDERS: PCP Internal Medicine; Visit Provider Nurse Practitioner Family | DX: M79.18 Myalgia, other site (principal); M54.12 Radiculopathy, cervical region; M47.812 Spondylosis without myelopathy or radiculopathy, cervical region; M25.50 Pain in unspecified joint | CPT/HCPCS: 99212 ==

== ENCOUNTER → 2022-07-25 13:35 | Outpatient (BNVA) | payer OTHER, SELFPAY | PROVIDERS: PCP Internal Medicine; Visit Provider Nurse Practitioner Family | DX: G47.30 Sleep apnea, unspecified (principal); Z91.198 Patient's noncompliance with other medical treatment and regimen for other reason | CPT/HCPCS: 99212 ==

== ENCOUNTER → 2022-08-13 11:23 | Outpatient (BNVA) | payer OTHER, SELFPAY | PROVIDERS: PCP Internal Medicine; Visit Provider Nurse Practitioner Family | DX: M47.22 Other spondylosis with radiculopathy, cervical region (principal); M54.50 Low back pain, unspecified; M79.604 Pain in right leg; M25.50 Pain in unspecified joint; M62.838 Other muscle spasm | CPT/HCPCS: 99212 ==

== ENCOUNTER 2022-08-14 11:11 | Outpatient (REF) | payer OTHER, SELFPAY ==
--- NOTE | ~2022-08-14 | XR_ITS ---
EXAMINATION: XR LUMBOSACRAL SPINE XR HIP, LEFT XR FOOT, LEFT XR WRIST, RIGHT XR FOREARM, RIGHT XR FOREARM, LEFT XR WRIST, LEFT CLINICAL INFORMATION: Lumbar radiculopathy. Pain bilateral wrists and forearms. Left hip pain. COMPARISON: Lumbosacral spine 03/07/2018. TECHNIQUE: 7 views of the lumbosacral spine inclusive of flexion and extension views, 2 views right forearm, 2 views left forearm, 3 views left foot, 4 views right wrist, AP view of the pelvis and 2 views of the left hip, 4 views left wrist. FINDINGS: LUMBOSACRAL SPINE: Lumbar vertebral body heights and disc space heights are preserved. Facet arthritis in the lower lumbar spine. Minimal spondylosis at L4 and L5. Alignment preserved on flexion and extension views. PELVIS AND LEFT HIP: Rounded pelvic calcifications are likely vascular. Mild degenerative changes bilateral hips with joint space narrowing and hypertrophic change. Small sclerotic foci overlying scattered pelvic bones including left femoral head, and right acetabular region, possibly representing bone islands. Correlation with the clinical exam recommended. Left hip alignment preserved. LEFT FOREARM AND WRIST: Mild degenerative changes 1st carpometacarpal joint with joint space narrowing and hypertrophic change. No displaced fracture of the forearm. Bone mineralization is normal. RIGHT WRIST AND FOREARM: No displaced fracture or focal bony destructive lesion of the radius/ulna. Mild degenerative changes 1st carpometacarpal joint with joint space narrowing and hypertrophic change. Triangular density in the soft tissues at the volar aspect of the metacarpals on the lateral view of the right hand. Differential considerations include foreign body versus calcific/ossific density of indeterminate age. LEFT FOOT: Mild degenerative changes 1st metatarsophalangeal joint. Alignment maintained. No displaced fracture. XR/XR lumbar spine 6V w bending IMPRESSION: 1. Mild spondylosis at L4 and L5. 2. Mild degenerative changes left hip. 3. Mild degenerative changes in the bilateral 1st carpometacarpal joints. 4. Small sclerotic foci overlying scattered pelvic bones including left femoral head, and right acetabular region, possibly representing bone islands. Correlation with the clinical exam recommended. 5. Triangular density in the soft tissues at the volar aspect of the metacarpals on the lateral view of the right hand. Differential considerations include foreign body versus calcific/ossific density of indeterminate age. Correlation with clinical exam recommended to determine further management. 6. Mild degenerative changes 1st metatarsophalangeal joint left foot. 7. No displaced fracture. Recommend follow-up imaging in 10-14 days if fracture is suspected. Additional imaging with CT scan or MRI should be considered for better visualization as these modalities are much more sensitive for detection of fracture or other underlying pathology.
== END 2022-08-14 11:12 | disposition home or self-care (01) ==
LOC: HO.XRAY 11:11
PROVIDERS: PCP Internal Medicine; Visit Provider Nurse Practitioner Family
DX: M25.552 Pain in left hip (principal); M79.672 Pain in left foot; M25.531 Pain in right wrist; M25.532 Pain in left wrist; M79.631 Pain in right forearm; M79.632 Pain in left forearm; M54.50 Low back pain, unspecified
CPT/HCPCS: 72114; 73090; 73100; 73502; 73620

== ENCOUNTER → 2022-08-17 11:55 | Day surgery (SDC) | payer OTHER, SELFPAY ==
[2022-07-24 14:11] VITALS: BMI 18.5
--- NOTE | 2022-07-25 13:48 | HO.ANESPROP2 ---
HPI - Anesthesia Eval Consult details Narrative: 42yo F for Interlaminar C6-C7 Epidural Steroid Injection PMFSH Active Problems Active Problems: All Active Problems (Updated 06/18/22 @ 16:11 by JESSICA Ugarte) Cervical spondylosis (Acute) Polyarthralgia (Acute) Left foot pain (Acute) Right wrist pain (Acute) Left wrist pain (Acute) Right forearm pain (Acute) Left forearm pain (Acute) Vaginal itching (Acute) Well woman exam with routine gynecological exam (Acute) Screen for sexually transmitted diseases (Acute) Cervical cancer screening (Acute) Sleep apnea (Acute) Mild recurrent major depression (Acute) Left hip pain (Acute) Chronic idiopathic constipation (Acute) Diverticulitis (Acute) Tachycardia (Acute) Physical exam (Acute) Anxiety (Acute) Daytime sleepiness (Acute) Witnessed episode of apnea (Acute) Snoring (Acute) Weakness of left upper extremity (Acute) Myofascial pain (Acute) Cervical radiculitis (Acute) Precordial chest pain (Acute) [place] (obstructive sleep apnea) (Acute) Back pain (Acute) Stress incontinence (Acute) Dizziness (Acute) Ear discomfort (Acute) Constipation (Acute) GERD (gastroesophageal reflux disease) (Acute) Abdominal pain (Acute) Enterocolitis (Acute) Sinusitis (Acute) Past Medical History Medical History Diarrhea Dizziness Ear discomfort Enterocolitis Precordial chest pain Sinusitis Family History Family History Father Cancer Mother Diabetes Maternal Grandmother Cancer Colon cancer Paternal Grandmother Cancer Uterine cancer Surgical History Surgical History History of esophagogastroduodenoscopy (EGD) Social History Social History Housing: Apartment Alcohol intake: former Patient Tobacco Use Status: Never used Tobacco e-Cigarette/Vaping Use: Never Used Second Hand Smoke Exposure: No service: No Current occupational status: unemployed Cognitive needs: No Hearing needs: No Vision needs: No Meds Allergies Allergy/AdvReac Type Severity Reaction Status Date / Time aspirin [ASPIRIN] Allergy Unknown UNKNOWN, Verified 06/18/22 16:06 swelling penicillin V Allergy Unknown rash Verified 06/18/22 16:06 shrimp Allergy anaphlaxysi Verified 06/18/22 16:06 s tape of ekg trace Allergy Unknown rash Uncoded 05/30/22 11:22 Home Medications Medication Instructions Recorded Confirmed Last Taken Type meclizine 25 mg tablet mg PO 01/28/20 05/30/22 Unknown History bisacodyl 5 mg tablet,delayed 10 mg PO BEDTIME 04/12/22 05/30/22 Unknown History release (Laxative (bisacodyl)) Exam Exam Date and Time: July 25, 2022 1348 Height,Weight and Vital Signs: Height 5 ft 7 in Weight 53.524 kg Assessment and Plan Assessment Anesthesia Assessment: Chart Reviewed
--- NOTE | 2022-07-26 12:42 | PC.NURSE ---
pt sts cancelled this am she stated she called the office
--- NOTE | 2022-08-16 09:47 | HO.ANESPROP2 ---
HPI - Anesthesia Eval Consult details Narrative: 42yo F for Interlaminar C6-C7 Epidural Steroid Injection PMFSH Active Problems Active Problems: All Active Problems (Updated 08/13/22 @ 12:07 by JESSICA Ugarte) Muscle spasm (Acute) Low back pain radiating to right lower extremity (Acute) Cervical spondylosis (Acute) Polyarthralgia (Acute) Left foot pain (Acute) Right wrist pain (Acute) Left wrist pain (Acute) Right forearm pain (Acute) Left forearm pain (Acute) Vaginal itching (Acute) Well woman exam with routine gynecological exam (Acute) Screen for sexually transmitted diseases (Acute) Cervical cancer screening (Acute) Sleep apnea (Acute) Mild recurrent major depression (Acute) Left hip pain (Acute) Chronic idiopathic constipation (Acute) Diverticulitis (Acute) Tachycardia (Acute) Physical exam (Acute) Anxiety (Acute) Daytime sleepiness (Acute) Witnessed episode of apnea (Acute) Snoring (Acute) Weakness of left upper extremity (Acute) Myofascial pain (Acute) Cervical radiculitis (Acute) Precordial chest pain (Acute) COLETTE (obstructive sleep apnea) (Acute) Back pain (Acute) Stress incontinence (Acute) Dizziness (Acute) Ear discomfort (Acute) Constipation (Acute) GERD (gastroesophageal reflux disease) (Acute) Abdominal pain (Acute) Enterocolitis (Acute) Sinusitis (Acute) Past Medical History Medical History Diarrhea Dizziness Ear discomfort Enterocolitis Precordial chest pain Sinusitis Family History Family History Father Cancer Mother Diabetes Maternal Grandmother Cancer Colon cancer Paternal Grandmother Cancer Uterine cancer Surgical History Surgical History History of esophagogastroduodenoscopy (EGD) Social History Social History Housing: Apartment Alcohol intake: former Patient Tobacco Use Status: Never used Tobacco e-Cigarette/Vaping Use: Never Used Second Hand Smoke Exposure: No service: No Current occupational status: unemployed Cognitive needs: No Hearing needs: No Vision needs: No Meds Allergies Allergy/AdvReac Type Severity Reaction Status Date / Time aspirin [ASPIRIN] Allergy Unknown UNKNOWN, Verified 08/13/22 11:34 swelling penicillin V Allergy Unknown rash Verified 08/13/22 11:34 shrimp Allergy anaphlaxysi Verified 08/13/22 11:34 s tape of ekg trace Allergy Unknown rash Uncoded 05/30/22 11:22 Home Medications Medication Instructions Recorded Confirmed Last Taken Type meclizine 25 mg tablet mg PO 01/28/20 05/30/22 Unknown History bisacodyl 5 mg tablet,delayed 10 mg PO BEDTIME 04/12/22 05/30/22 Unknown History release (Laxative (bisacodyl)) buspirone 5 mg tablet 5 mg PO TID 08/13/22 Unknown History fluoxetine 20 mg capsule 20 mg PO DAILY 08/13/22 Unknown History lorazepam 0.5 mg tablet 0.5 mg PO BID PRN panic attack 08/13/22 Unknown History peg-electrolyte solution 420 gram 4,000 ml PO DIRECTED 08/13/22 Unknown History oral solution Exam Exam Date and Time: August 16, 2022 0947 Height,Weight and Vital Signs: Height 5 ft 7 in Weight 53.524 kg
--- NOTE | 2022-08-17 12:04 | P.HPSUR_ITS ---
Pre-Procedural Eval Section A Date of Service: 08/17/22 The patient is an INPATIENT: No Changes since office visit: Yes Patient answered all questions The History & Physical has been completed within 30 days and I have reviewed it.: No Section B Chief Complaint: Radiculopathy, cervical region Details of Present Illness: as above Relevant Family History (Specify if Yes): No Relevant Social History: None Present Medications: None Medical History: No relevant PMH History of Previous Operations: No relevant previous surgery Allergies: Allergies Allergy/AdvReac Type Severity Reaction Status Date / Time aspirin [ASPIRIN] Allergy Unknown UNKNOWN, Verified 08/13/22 11:34 swelling penicillin V Allergy Unknown rash Verified 08/13/22 11:34 shrimp Allergy anaphlaxysi Verified 08/13/22 11:34 s tape of ekg trace Allergy Unknown rash Uncoded 05/30/22 11:22 Review of Systems Sugical H&P ROS: Negative: Constitution, Cardiovascular, Respiratory, Brenda rological, Psychiatric, Hem-Onc, Allergic/Immunologic, Gastrointestinal, Genitourinary, Musculoskeletal, Integumentary, Endocrine and Eyes/Ears/Nose/Throat Exam Surgical H&P Exam: Normal: HEENT, Normal: Heart, Normal: Lungs, Normal: Extremities, Normal: Abdomen, Normal: Skin and Normal: Neurological Plan Diagnosis/Plan: Unchanged I have reviewed the history and physical and performed a pertinent physical examination on my patient. No changes have occurred unless specified. Time Spent With Patient Time: Total time managing care of this patient today ___5_ minutes.
--- NOTE | 2022-08-17 12:09 | PC.NURSE ---
Patient had coffee with cream & sugar approx 1100. Anesthesia made aware. Per anesthesia Dr Woo, case cannot be done today with sedation. Patient offered to have procedure done under local anesthesia. Patient declined & will reschedule.
[2022-08-17 12:14] LABS: UPreg QC Valid YES; Urine Pregnancy NEGATIVE (NEGATIVE)
== END ==
PROVIDERS: Registered Nurse Emergency; PCP Internal Medicine; Visit Provider Anesthesiology
DX: M54.12 Radiculopathy, cervical region (principal); Z53.29 Procedure and treatment not carried out because of patient's decision for other reasons
CPT/HCPCS: 81025

== ENCOUNTER 2022-08-30 14:12 | Outpatient (AMB) | payer OTHER, SELFPAY ==
--- NOTE | 2022-08-30 14:17 | A.OFFVIS_ITS ---
Intake Vital Signs 08/30/22 14:22 Height 5 ft 7 in Weight 185 lb 2 oz BMI 29.0 BP 139/76 Blood Pressure Location Rt brachial Position Sitting Pulse 70 Pulse Source Pulse Oximeter Pulse Oximetry (%) 98 Oxygen Delivery Method Room Air Intake Visit Reasons: FOLLOW UP/XRAY RESULTS Intake Note: Pain today 11/27 Overlock Operator Required: Yes Overlock Operator Language: Algerian Accompanied by: Self / Same As Patient Allergies aspirin [ASPIRIN] Allergy (Unknown, Verified 08/30/22 14:21) UNKNOWN, swelling penicillin V Allergy (Unknown, Verified 08/30/22 14:21) rash shrimp Allergy (Verified 08/30/22 14:21) anaphlaxysis tape of ekg trace Allergy (Unknown, Uncoded 05/30/22 11:22) rash HPI HPI Comments History of Present Illness Details Patient presents today in the office to discuss recent lumbar spine and left hip xray results. Patient reports she also completed arm, wrist and foot xrays ordered by her PCP. PRIOR: Patient presents today for follow up for back and neck pain. She was scheduled for cervical interlaminar C6-C7 RONNIE early July but due to transportation issues could not arrive for her procedure on 07/26/22. Patient continues to endorse neck pain with bilateral radiculopathy to both arms and decreased strength in both hands, numbness and tingling, right worse than left. Her EMG for left upper extremity did not reveal any findings. No EMG done for right side. Cervical MRI showed multilevel DJD with [id number] right and mild left-sided neural foraminal stenosis and bulging discs. At c6-C7, broad-based central disc protrusion with flattening of the ventral dural sac appears slightly increased in size on current study and now abuts the ventral aspect of the spinal cord. Will consider neurosurgical evaluation if no relief with cervical RONNIE. Patient also reports right sided lower back pain radiating into her right lower extremity laterally and posteriorly. SLR testing was negative today. Patient was reminded to complete back and hip imaging that was ordered in October 2021. I will change her back xray to xray with flexion and extension view. Also recommend formal PT for lower back pain prior to interventional treatments. Denies any recent cough, cold, infection, fever or other significant changes in medical history since last office visit. Patient denies any bladder or bowel incontinence or saddle anesthesia. PRIOR: Angela returns with similar complaints of a >5 year history of LUE pain, weakness and paresthesias. She was previously seen by Dr. Pete for cervical and lumbar radiculitis. She notes having persistent and progressively worsening cramping, tingling as well as numbness. She states that it is constant on the LUE and intermittent on the right. She reports constantly dropping objects due to the weakness. She has tried gabapentin, tylenol and lidocaine patches with minimal relief. She reports having an injection, which sounds like a trigger point injection of the left cervical muscles at [facility] with no relief about one month ago. She had attended physical therapy in the past but could not continue due to exacerbation of pain and could not tolerate. PRIOR: Angela presents for initial evaluation of chronic intermittent neck, left arm, low back and left leg pain. She has been experiencing similar pain on and off since 2009 when she was in [place]. 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 Over the years her neck and low back would hurt intermittently. Eventually she developed radiating stabbing left arm and crampi ng left leg pain. She was provided with medications and injections. She is unsure what kind. She moved to the . In 2016 her pain persisted. 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 She eventually underwent xrays and a cervical MRI. She states she also had lumbar MRI but she is not sure where it was performed but was told she has she has a herniated disc. Her cervical MRI described mild left foraminal stenosis secondary to disc osteophyte complex at C7/T1 along with some other mild disc protrusions without significant encroachment. She denies any gait disturbance, weakness, saddle anesthesia, numbness, tingling, b/b disturbance, fevers, chills, or wt change. She is currently taking gabapentin and tried tramadol but stopped after it made her anxious. SHe is able to sleep through the night and perform all ADL's. Her pain ranges form 3-8/10. [facility] Medical History Diarrhea Dizziness Ear discomfort Enterocolitis Precordial chest pain Sinusitis Surgical History History of esophagogastroduodenoscopy (EGD) Family History Father Cancer Mother Diabetes Maternal Grandmother Cancer Colon cancer Paternal Grandmother Cancer Uterine cancer Social History Housing: Apartment Alcohol intake: former Patient Tobacco Use Status: Never used Tobacco e-Cigarette/Vaping Use: Never Used Second Hand Smoke Exposure: No service: No Current occupational status: unemployed Cognitive needs: No Hearing needs: No Vision needs: No Female Reproductive History Menstrual Age of Menarche: 12 Review of Systems Const All systems reviewed & are unremarkable except as noted in HPI and below Physical Exam Vital Signs: Last Vital Signs Pulse 70 08/30/22 14:22 BP 139/76 08/30/22 14:22 Pulse Ox 98 08/30/22 14:22 Oxygen Delivery Method Room Air 08/30/22 14:22 BMI result Body Mass Index 29.0 General: Appears afebrile. Alert and oriented. Mood and affect appropriate. Follows and participates in conversation appropriately. Respiratory effort is unlabored. No cough. No nasal discharge. Able to transition from sit to stand unassisted. Ambulates with bilaterally normal heel strike and toe off. Neck Other: Patient with decreased cervical ROM in all planes/especially with lateral rotations, left>right. Reports increased pain with cervical flexion and looking down. Spurling compression test positive on the left. Elvey's tension test positive bilaterally, with radiation of pain from neck to wrists. Reports bilateral lower arm pain. Lhermitte's test was negative. DTR intact, +2 and symmetrical. Patient demonstrated 4/5 left and 5/5 right motor strength of bilateral upper extremities. 2 + radial pulses. Significant tightness throughout upper trapezius and periscapular muscles. Neck: Yes no lymphadenopathy, Yes supple, No anterior neck swelling and Yes no JVD Back/Spine/Pelvis Back: back tenderness Cervical Spine: cervical muscular tenderness, pain with cervical ROM and No Cervical spine tenderness Thoracic/Lumbar Spine: thoracic and lumbar spine normal to inspection, No Thoracic/lumbar spine scar(s), Lasegue's sign negative, straight leg raise negative bilaterally, pain with thoraco-lumbar ROM, paraspinal muscle tenderness, No thoracic spinal tenderness and lumbar spinal tenderness at L4 and at L5 Pelvis: no buttock tenderness Sacroiliac joints: bilaterally tender to palpation Results Reviewed Results Reviewed: XR LUMBOSACRAL SPINE XR HIP, LEFT 08/14/22 Ordering Physician: Fiona Hagen MD Date of Service: 08/14/22 Procedure(s): XR wrist LT 2V XR FOOT, LEFT XR WRIST, RIGHT XR FOREARM, RIGHT XR FOREARM, LEFT XR WRIST, LEFT CLINICAL INFORMATION: Lumbar radiculopathy. Pain bilateral wrists and forearms. Left hip pain. COMPARISON: Lumbosacral spine 03/07/2018. FINDINGS: LUMBOSACRAL SPINE: Lumbar vertebral body heights and disc space heights are preserved. Facet arthritis in the lower lumbar spine. Minimal spondylosis at L4 and L5. Alignment preserved on flexion and extension views. PELVIS AND LEFT HIP: Rounded pelvic calcifications are likely vascular. Mild degenerative changes bilateral hips with joint space narrowing and hypertrophic change. Small sclerotic foci overlying scattered pelvic bones including left femoral head, and right acetabular region, possibly representing bone islands. Correlation with the clinical exam recommended. Left hip alignment preserved. LEFT FOREARM AND WRIST: Mild degenerative changes 1st carpometacarpal joint with joint space narrowing and hypertrophic change. No displaced fracture of the forearm. Bone mineralization is normal. RIGHT WRIST AND FOREARM: No displaced fracture or focal bony destructive lesion of the radius/ulna. Mild degenerative changes 1st carpometacarpal joint with joint space narrowing and hypertrophic change. Triangular density in the soft tissues at the volar aspect of the metacarpals on the lateral view of the right hand. Differential considerations include foreign body versus calcific/ossific density of indeterminate age. LEFT FOOT: Mild degenerative changes 1st metatarsophalangeal joint. Alignment maintained. No displaced fracture. IMPRESSION: 1. Mild spondylosis at L4 and L5. 2. Mild degenerative changes left hip. 3. Mild degenerative changes in the bilateral 1st carpometacarpal joints. 4. Small sclerotic foci overlying scattered pelvic bones including left femoral head, and right acetabular region, possibly representing bone islands. Correlation with the clinical exam recommended. 5. Triangular density in the soft tissues at the volar aspect of the metacarpals on the lateral view of the right hand. Differential considerations include foreign body versus calcific/ossific density of indeterminate age. Correlation with clinical exam recommended to determine further management. 6. Mild degenerative changes 1st metatarsophalangeal joint left foot. 7. No displaced fracture. Recommend follow-up imaging in 10-14 days if fracture is suspected. Additional imaging with CT scan or MRI should be considered for better visualization as these modalities are much more sensitive for detection of fracture or other underlying pathology. MR CERVICAL SPINE WITHOUT CONTRAST 07/28/21 at [facility] FINDINGS: ALIGNMENT: Redemonstrated is lordotic reversal centered at C5-C6 similar to the previous study with trace anterolisthesis at C4-C5 again noted. No interval change. CRANIOCERVICAL JUNCTION/C1-C2 ARTICULATIONS: Grossly intact. VISUALIZED INTRACRANIAL STRUCTURES: Grossly within normal limits within the limitations of the exam. Slightly prominent adenoids stable in appearance. VERTEBRAL BODIES: Normal height. DISC SPACES AND ENDPLATES: Disc space height loss most noted at C5-C6 with anterior marginal spondylosis stable in appearance. Disc space height loss at C6-C7 and minor spondylosis stable in appearance. Minor spondylosis at C7-T1 unchanged in appearance. BONE MARROW: Suboptimally evaluated due to motion artifact. Probable degenerative endplate sclerosis anteriorly at C5-C6 again noted. No significant marrow-replacing process or bone marrow edema suspected. C2-C3: No disc herniation. Mild left-sided facet arthropathy. No canal or neural foraminal stenosis. C3-C4: Disc osteophyte complex noted with mild flattening of the ventral dural sac without cord impingement without significant spinal canal stenosis. There is uncovertebral spurring bilaterally with moderate right-sided and mild left-sided facet arthropathy. [id number]-[id number] right-sided and mild left-sided neural foraminal stenosis stable in appearance. C4-C5: Stable mild anterolisthesis and disc osteophyte complex, with mild flattening of the dural sac without cord impingement or canal stenosis stable in appearance. [id number]-ax-[id number] bilateral facet arthrosis noted without significant neural foraminal stenosis stable in appearance. C5-C6: Broad-based disc osteophyte complex with effacement of the ventral dural sac stable in appearance with stable mild ventral cord deformity and mild central canal stenosis unchanged in appearance. Bilateral uncovertebral spurring is again noted. [id number] right and mild left-sided neural foraminal stenosis is better visualized on current exam. C6-C7: Broad-based central disc protrusion with flattening of the ventral dural sac appears slightly increased in size on current study and now abuts the ventral aspect of the spinal cord. Ventral cord deformity is again noted unchanged. No significant bony productive changes/neural foraminal stenosis. C7-T1: Posterolateral disc osteophyte complex asymmetric to the left with uncovertebral spurring and left-sided facet arthrosis, with moderate left-sided neural foraminal stenosis, stable in appearance. No significant canal stenosis. SPINAL CORD: Accounting for artifacts, the cervical and visualized upper thoracic spinal cord is normal in morphology, caliber and signal intensity throughout. EXTRACRANIAL SOFT TISSUES: The previously noted soft tissue edema suspected in the paraspinal soft tissues on the left at the C5-C6 level is not currently visualized. Limited assessment of the visualized extracranial soft tissue structures and paraspinal soft tissues is grossly unremarkable within the limitations of the exam. IMPRESSION: 1. Apparent resolution of previously noted nonspecific left paraspinal soft tissue edema at the C5-C6 level. 2. Stable lordotic reversal at C5-C6 and stable mild anterolisthesis at C4-C5 with stable discogenic degenerative changes, disc protrusions and spondylosis with mild increased size to a previously noted C6-C7 disc herniation now abutting the ventral aspect of the spinal cord. Stable mild spinal canal stenosis at C5-C6. 3. Stable multilevel DJD with [id number] right and mild left-sided neural foraminal stenosis at C5-C6 better visualized on current study. 4. Limited exam due to motion artifact. Assessment & Plan Assessment & Plan (1) Low back pain radiating to right lower extremity: Code(s): M54.50 - Low back pain, unspecified; M79.604 - Pain in right leg (2) Cervical radiculitis: Code(s): M54.12 - Radiculopathy, cervical region (3) Cervical spondylosis: Code(s): M47.812 - Spondylosis without myelopathy or radiculopathy, cervical region (4) Muscle spasm: Code(s): M62.838 - Other muscle spasm (5) Right wrist pain: Code(s): M25.531 - Pain in right wrist (6) Left foot pain: Code(s): M79.672 - Pain in left foot (7) Left wrist pain: Code(s): M25.532 - Pain in left wrist (8) Right forearm pain: Code(s): M79.631 - Pain in right forearm (9) Left forearm pain: Code(s): M79.632 - Pain in left forearm Plan 1. Proceed with Interlaminar C6-C7 RONNIE with sedation and fluoroscopy for cervical radicular pain consistent with MRI findings. At this time, she continues to endorse radicular neck pain worse than her low back or hip pain. 2. Lumbar spine and hip imaging noted for mild spondylosis at L4 and L5 and mild degenerative changes left hip. Patient has not started physical therapy yet and was encouraged to contact our PT department to schedule first session. 3. Wrist, forearm and left foot xray imaging briefly reviewed with patient today. Orthopedic referral for further evaluation on non-displaced fractures which patient attributes to history of falls. All questions were answered and patient agreed with the treatment plan. Follow-up after cervical injections and sooner as needed. Orders: Referrals Orthopedics Referral M25.531 - Pain in right wrist, M25.532 - Pain in left wrist, M79.631 - Pain in right forearm, M79.632 - Pain in left forearm, M79.672 - Pain in left foot Coding Level of Care Code Est Pt Level 4 (86621) Diagnoses Low back pain radiating to right lower extremity M54.50; M79.604 Cervical radiculitis M54.12 Cervical spondylosis M47.812 Muscle spasm M62.838 Right wrist pain M25.531 Left foot pain M79.672 Left wrist pain M25.532 Right forearm pain M79.631 Left forearm pain M79.632
[2022-08-30 14:22] VITALS: BP 139/76; PULSE 70; O2SAT 98; BMI 29.0
== END 2022-08-30 14:37 | disposition home or self-care (01) ==
PROVIDERS: PCP Internal Medicine; Visit Provider Nurse Practitioner Family
DX: M54.50 Low back pain, unspecified (principal); M79.604 Pain in right leg; M54.12 Radiculopathy, cervical region; M47.812 Spondylosis without myelopathy or radiculopathy, cervical region; M62.838 Other muscle spasm; M25.531 Pain in right wrist; M79.672 Pain in left foot; M25.532 Pain in left wrist; M79.631 Pain in right forearm; M79.632 Pain in left forearm
CPT/HCPCS: 99213

== ENCOUNTER → 2022-08-30 14:12 | Outpatient (BNVA) | payer OTHER, SELFPAY | PROVIDERS: PCP Internal Medicine; Visit Provider Nurse Practitioner Family | DX: M47.22 Other spondylosis with radiculopathy, cervical region (principal); M54.50 Low back pain, unspecified; M79.604 Pain in right leg; M62.838 Other muscle spasm; M25.531 Pain in right wrist; M79.672 Pain in left foot; M25.532 Pain in left wrist; M79.631 Pain in right forearm; M79.632 Pain in left forearm | CPT/HCPCS: 99212 ==

== ENCOUNTER 2022-09-07 07:18 | Day surgery (SDC) | payer OTHER, SELFPAY ==
--- NOTE | 2022-09-06 09:19 | HO.ANESPROP2 ---
Documented by User: Claribel Sr NP 09/06/22 09:21 HPI - Anesthesia Eval Consult details Narrative: 42yo F for interlaminar C6-C7 Epidural Steroid Injection PMFSH Active Problems Active Problems: All Active Problems (Updated 08/13/22 @ 12:07 by JESSICA Ugarte) Muscle spasm (Acute) Low back pain radiating to right lower extremity (Acute) Cervical spondylosis (Acute) Polyarthralgia (Acute) Left foot pain (Acute) Right wrist pain (Acute) Left wrist pain (Acute) Right forearm pain (Acute) Left forearm pain (Acute) Vaginal itching (Acute) Well woman exam with routine gynecological exam (Acute) Screen for sexually transmitted diseases (Acute) Cervical cancer screening (Acute) Sleep apnea (Acute) Mild recurrent major depression (Acute) Left hip pain (Acute) Chronic idiopathic constipation (Acute) Diverticulitis (Acute) Tachycardia (Acute) Physical exam (Acute) Anxiety (Acute) Daytime sleepiness (Acute) Witnessed episode of apnea (Acute) Snoring (Acute) Weakness of left upper extremity (Acute) Myofascial pain (Acute) Cervical radiculitis (Acute) Precordial chest pain (Acute) COLETTE (obstructive sleep apnea) (Acute) Back pain (Acute) Stress incontinence (Acute) Dizziness (Acute) Ear discomfort (Acute) Constipation (Acute) GERD (gastroesophageal reflux disease) (Acute) Abdominal pain (Acute) Enterocolitis (Acute) Sinusitis (Acute) Past Medical History Medical History Diarrhea Dizziness Ear discomfort Enterocolitis Precordial chest pain Sinusitis Family History Family History Father Cancer Mother Diabetes Maternal Grandmother Cancer Colon cancer Paternal Grandmother Cancer Uterine cancer Surgical History Surgical History H/O colonoscopy History of esophagogastroduodenoscopy (EGD) Social History Social History Housing: Apartment Alcohol intake: former Patient Tobacco Use Status: Never used Tobacco e-Cigarette/Vaping Use: Never Used Second Hand Smoke Exposure: No Use of substances other than those prescribed or required for medical reasons: No Are you DNR?: No Advance Directives: No Advance Directives Information Provided: Yes service: No Current occupational status: unemployed Cognitive needs: No Hearing needs: No Vision needs: No Meds Allergies Allergy/AdvReac Type Severity Reaction Status Date / Time aspirin [ASPIRIN] Allergy Severe Rash Verified 09/07/22 07:40 penicillin V Allergy Severe rash Verified 09/07/22 07:40 shrimp Allergy Severe anaphlaxysi Verified 09/07/22 07:40 s tape of ekg trace Allergy Severe rash Uncoded 09/07/22 07:40 Home Medications Medication Instructions Recorded Confirmed Last Taken Type meclizine 25 mg tablet 25 mg PO DAILY 01/28/20 09/07/22 Unknown History bisacodyl 5 mg tablet,delayed 10 mg PO BEDTIME 04/12/22 09/07/22 Unknown History release (Laxative (bisacodyl)) buspirone 5 mg tablet 5 mg PO TID 08/13/22 09/07/22 Unknown History fluoxetine 20 mg capsule 20 mg PO DAILY 08/13/22 09/07/22 Unknown History lorazepam 0.5 mg tablet 0.5 mg PO BID PRN panic attack 08/13/22 09/07/22 Unknown History omeprazole 40 mg capsule,delayed 40 mg PO BID 09/07/22 09/07/22 Unknown History release Exam Exam Date and Time: September 06, [id number] Assessment and Plan Assessment Anesthesia Assessment: Chart Reviewed Documented by User: Carina Woo MD 09/07/22 08:49 PMFSH Past Medical History Medical History Diarrhea Dizziness Ear discomfort Enterocolitis Precordial chest pain Sinusitis Family History Family History Father Cancer Mother Diabetes Maternal Grandmother Cancer Colon cancer Paternal Grandmother Cancer Uterine cancer Family history of problems with anesthesia: No Surgical History Surgical History H/O colonoscopy History of esophagogastroduodenoscopy (EGD) History of Problems with Anesthesia: No Social History Social History Housing: Apartment Alcohol intake: former Patient Tobacco Use Status: Never used Tobacco e-Cigarette/Vaping Use: Never Used Second Hand Smoke Exposure: No Use of substances other than those prescribed or required for medical reasons: No Are you DNR?: No Advance Directives: No Advance Directives Information Provided: Yes service: No Current occupational status: unemployed Cognitive needs: No Hearing needs: No Vision needs: No Meds Allergies Allergy/AdvReac Type Severity Reaction Status Date / Time aspirin [ASPIRIN] Allergy Severe Rash Verified 09/07/22 07:40 penicillin V Allergy Severe rash Verified 09/07/22 07:40 shrimp Allergy Severe anaphlaxysi Verified 09/07/22 07:40 s tape of ekg trace Allergy Severe rash Uncoded 09/07/22 07:40 Home Medications Medication Instructions Recorded Confirmed Last Taken Type meclizine 25 mg tablet 25 mg PO DAILY 01/28/20 09/07/22 Unknown History bisacodyl 5 mg tablet,delayed 10 mg PO BEDTIME 04/12/22 09/07/22 Unknown History release (Laxative (bisacodyl)) buspirone 5 mg tablet 5 mg PO TID 08/13/22 09/07/22 Unknown History fluoxetine 20 mg capsule 20 mg PO DAILY 08/13/22 09/07/22 Unknown History lorazepam 0.5 mg tablet 0.5 mg PO BID PRN panic attack 08/13/22 09/07/22 Unknown History omeprazole 40 mg capsule,delayed 40 mg PO BID 09/07/22 09/07/22 Unknown History release Exam Airway Mallampati Class: II TM Dist: >3cm Neck ROM: Full Heart: rrr Lungs: cta Assessment and Plan Assessment Anesthesia Assessment: Anesthesia Plan Discussed Final Anesthetic Review Family History of Problems with Anesthesia: No History of Problems with Anesthesia: No NPO: Yes ASA Class: III Final Preanesthetic Review: No Changes in Pt Med Stat, Meds/Allgs Chart Reviewed, Consent Obtained/Reviewed and Anes Risks/Benef Reviewed Patient Risk: Low Procedure Risk: Low Anesthetic Plan Anesthetic Plan: MAC: Disposition: Standard PACU
--- NOTE | ~2022-09-07 | FL_ITS ---
EXAMINATION: XR FLUOROSCOPY WITH IMAGES CLINICAL INFORMATION: Interlaminar steroid injection C6-C7. COMPARISON: None available. TECHNIQUE: Fluoroscopy Supervised By: Dr. Roni Dominguez. Fluoroscopy Time: 0.1 minute. Cumulative Dose: 2.04 mGy. DAP: 0.305 Gycm2. Images: 2. FINDINGS: 2 digital images of lower cervical spine reveal needle positioned along the C6-C7 interspinous region with contrast opacifying the soft tissues. No aggressive lytic or sclerotic process seen. Visualized bones are grossly unremarkable. FL/FL guidance in OR IMPRESSION: Fluoroscopy was provided to referring physician for pain management of the C6-C7 interspinous region.
[2022-09-07 07:46] LABS: UPreg QC Valid YES
[2022-09-07 07:47] LABS: Urine Pregnancy NEGATIVE (NEGATIVE)
[2022-09-07 07:50] VITALS: BMI 29.4
[2022-09-07 07:58] VITALS: BP 124/79; PULSE 74; RESP 16; TEMP 36.7; O2SAT 99
[2022-09-07] MEDS: Lactated Ringers 1,000 ML 100 ML IVCONT (08:07)
--- NOTE | 2022-09-07 08:53 | MHC.SHP ---
Pre-Procedural Eval Section A Date of Service: 09/07/22 The patient is an INPATIENT: No Changes since office visit: Yes Patient answered all questions The History & Physical has been completed within 30 days and I have reviewed it.: No Section B Chief Complaint: Radiculopathy, cervical region Details of Present Illness: As above Relevant Family History (Specify if Yes): No Relevant Social History: None Present Medications: None Medical History: No relevant PMH History of Previous Operations: No relevant previous surgery Allergies: Allergies Allergy/AdvReac Type Severity Reaction Status Date / Time aspirin [ASPIRIN] Allergy Severe Rash Verified 09/07/22 07:40 penicillin V Allergy Severe rash Verified 09/07/22 07:40 shrimp Allergy Severe anaphlaxysi Verified 09/07/22 07:40 s tape of ekg trace Allergy Severe rash Uncoded 09/07/22 07:40 Review of Systems Sugical H&P ROS: Negative: Constitution, Cardiovascular, Respiratory, Neurological, Psychiatric, Hem-Onc, Allergic/Immunologic, Gastrointestinal, Genitourinary, Musculoskeletal, Integumentary, Endocrine and Eyes/Ears/Nose/Throat Exam Surgical H&P Exam: Normal: HEENT, Normal: Heart, Normal: Lungs, Normal: Extremities, Normal: Abdomen, Normal: Skin and Normal: Neurological Plan Diagnosis/Plan: Unchanged I have reviewed the history and physical and performed a pertinent physical examination on my patient. No changes have occurred unless specified. Stanton Perlacopy machine operator was helping to communicate with this patient, Time Spent With Patient Time: Total time managing care of this patient today ___15_ minutes.
[2022-09-07 09:30] VITALS: BP 121/73; PULSE 72; RESP 17; TEMP 36.4; O2SAT 100
--- NOTE | 2022-09-07 09:33 | PM.OP ---
Brief Operative Note Date of Service: 09/07/22 Pre-op diagnosis: cervicalgia, disc degeneration cervical, radiculopathy cervical Post-op diagnosis: same Procedure: interlaminar C6-C7 epidural steroid injection. Surgeon: Roni Dominguez MD Anesthesia: MAC Was an Circular Tank Cooper used for this Procedure?: No Estimated blood loss (mL): 1 Condition: stable Disposition: PACU
--- NOTE | 2022-09-07 09:34 | W.PM.OPN ---
Operative Note Operative Note Date of Service: 09/07/22 Narrative: Interlaminar C6-C7 epidural steroid injection. informed consent was thoroughly explained to the patient with the help of filter tank tender helper Pan. The patient was brought to the operating room and positioned prone On operating table. [employer] monitors were applied and patient was minimally sedated. Time-out was performed delineating nature of the procedure site and side of the procedure name ended of of the patient patient's allergies. The patient's upper back and posterior neck were prepped with ChloraPrep and draped with sterile utility Self-adhesive towels. C-arm was brought of the operating field and sq picture of C7 vertebra was delineated on the screen. In the projection of the right lamina of the C7 vertebra to the skin injection of the local anesthetic lidocaine 2% 2 cc was performed. 20 gauge Touhy epidural needle 10 cm long was inserted through the skin wheal and advanced to were the upper lamina of the C7 vertebra. The direction was aiming at the center of the image of the interlaminar space. The advancement was performed on anterior posterior and lateral intermittent views. Loss of resistance to saline technique was used to locate epidural space. When loss of resistance felt injection of the contrast was performed delineating no intravascular and no intrathecal spread of the contrast. After that injection of the solution of the normal saline 7 cc mixed Dexamethasone 10 mg 1 cc and trace amount of lidocaine 2% few drops. Upon completion of the injection needle was removed Band-Aid was applied. The patient tolerated procedure fairly well. She was taking outside of the operating room to recovery room where she recovered uneventfully.
[2022-09-07 09:45] VITALS: BP 108/81; PULSE 77; RESP 18; TEMP 37.2; O2SAT 99
== END 2022-09-07 10:23 | disposition home or self-care (01) ==
PROVIDERS: Nurse Practitioner; PCP Internal Medicine; Visit Provider Anesthesiology
PROC: 3E0R33Z Introduction of Anti-inflammatory into Spinal Canal, Percutaneous Approach (ICD-10-PCS; CPT 62321; principal; 2022-09-07 09:00)
DX: M47.22 Other spondylosis with radiculopathy, cervical region (principal); M50.123 Cervical disc disorder at C6-C7 level with radiculopathy; M62.838 Other muscle spasm; Z88.0 Allergy status to penicillin
CPT/HCPCS: 62321; 81025; J1100; J2250; J2795; J3301; Q9965; Q9967

== ENCOUNTER → 2022-09-07 07:18 | Outpatient (BNV) | payer OTHER, SELFPAY | PROVIDERS: PCP Internal Medicine; Visit Provider Anesthesiology | DX: M54.12 Radiculopathy, cervical region (principal) | CPT/HCPCS: 62321; 99499 ==

== ENCOUNTER 2022-09-11 16:35 | Outpatient (AMB) | payer OTHER, SELFPAY ==
[2022-09-11 16:38] VITALS: BP 120/72; BMI 28.8
--- NOTE | 2022-09-11 16:38 | A.OFFPC_ITS ---
Vital Signs 09/11/22 16:38 Height 5 ft 7 in Weight 184 lb BMI 28.8 BP 120/72 Blood Pressure Location Lt brachial Position Sitting Intake Visit Reasons: PE Intake Note: Patient here for a physical exam Digital Marketing Assistant Required: No Accompanied by: Self / Same As Patient Allergies aspirin [ASPIRIN] Allergy (Severe, Verified 09/11/22 16:46) Rash penicillin V Allergy (Severe, Verified 09/11/22 16:46) rash shrimp Allergy (Severe, Verified 09/11/22 16:46) anaphlaxysis tape of ekg trace Allergy (Severe, Uncoded 09/11/22 16:46) rash Medication List - Last Reconciled 09/11/22 by Fiona Zhang MD bisacodyl (Laxative (bisacodyl)) 10 mg PO BEDTIME bupropion HCl 150 mg PO QAM 90 days buspirone 5 mg PO TID clotrimazole-betamethasone 1-0.05 % 1 appl topical BID 2 weeks fluoxetine 20 mg PO DAILY gabapentin 300 mg PO BEDTIME 90 days hydrocortisone 1% (Anti-Itch (hydrocortisone)) 1 appl topical TID PRN 30 days hydrocortisone 2.5% (Proctosol HC) 1 appl WA BID PRN linaclotide (Linzess) 72 mcg PO QAM lorazepam 0.5 mg PO BID PRN meclizine 25 mg PO DAILY methocarbamol 750 mg PO BID PRN 30 days omeprazole 40 mg PO BID pantoprazole 40 mg PO DAILY 90 days Tobacco use date assessed: 05/30/22 Dental Screening Dental Screen Date: 09/11/22 Did you have a dental visit in the last 12 months?: Yes Did you have a dental problem in the last 6 months where you did not have access to dental care?: No Was dental information given to patient?: Patient has dentist HPI HPI Comments History of Present Illness Details This is a 42-year-old female with depression and anxiety that comes for her physical exam. Depression stable with medications. Last mammogram was September 2021. Last Pap smear was 2022 and was normal. Last colonoscopy was August 2022 showing tubular adenoma and next colonoscopy should be in 5 years. Complains of diffuse joint pain due to fibromyalgia. Has bilateral hand pain and weakness and an object over 10 lb cannot be hold by her hands. She is not able to work. ON LICENSE OF [facility] Medical History Diarrhea Dizziness Ear discomfort Enterocolitis Precordial chest pain Sinusitis Surgical History H/O colonoscopy History of esophagogastroduodenoscopy (EGD) Family History Father Cancer Mother Diabetes Maternal Grandmother Cancer Colon cancer Paternal Grandmother Cancer Uterine cancer Social History Housing: Apartment Alcohol intake: former Patient Tobacco Use Status: Never used Tobacco e-Cigarette/Vaping Use: Never Used Second Hand Smoke Exposure: No service: No Current occupational status: unemployed Cognitive needs: No Hearing needs: No Vision needs: No Female Reproductive History Menstrual Age of Menarche: 12 Questionnaire Thrive Questionnaire Date Thrive assessed: 05/30/22 JOCELYNE-7 AMB Questionnaire JOCELYNE-7 Date JOCELYNE - 7 assessed: 05/30/22 Source: Developed by Drs. Rony Martinez, Avani Alvarez, Alfredo Banda and colleagues, with an educational jocelyne from [employer]. Review of Systems Const All systems reviewed & are unremarkable except as noted in HPI and below Eyes Reports no additional complaints, Denies change in vision and Denies other visua l disturbances Card Denies chest pain at rest, Denies chest pain with activity, Denies edema, Denies irregular heart rhythm, Denies claudication, Denies dyspnea, Denies dyspnea on exertion, Denies orthopnea, Denies paroxysmal nocturnal dyspnea and Denies slow heart rate Resp Denies cough, Denies dyspnea and Denies dyspnea on exertion GI Denies abdominal pain, Denies change in bowel habits, Denies excessive flatus, Denies nausea and Denies vomiting Denies urinary incontinence, Denies urinary hesitancy and Denies urinary urgency Musc Denies abnormal gait, Denies atrophy, Denies deformity, Reports arthralgias and Denies limited range of motion Skin/Breast Denies bleeding lesions, Denies changing lesions and Denies rash Neuro Denies abnormal gait, Denies behavioral changes, Denies confusion and Denies lack of coordination Psych Denies behavioral changes and Denies confusion Physical exam (Primary Care) Vital Signs: Last Vital Signs BP 120/72 09/11/22 16:38 BMI result Body Mass Index 28.8 Tobacco/Smoking Status: Tobacco use Status Tobacco use date assessed 05/30/22 09/11/22 16:45 Patient Tobacco Use Status Never used Tobacco 09/11/22 16:45 e-Cigarette/Vaping Use Never Used 09/11/22 16:45 Thrive Assessment: Date of Thrive Assessment Date Thrive assessed 05/30/22 09/11/22 16:45 Const General: No confusion Orientation/consciousness: patient oriented x3 and No confusion HENMT Head: Yes normal to inspection, Yes normocephalic and Yes atraumatic Ears: external ears normal Eyes General: appearance normal, both eyes and all related structures Eyelids: Yes eyelids normal Conjunctivae: conjunctivae normal Neck Neck: Yes normal visual inspection and Yes supple Resp Effort & Inspection: normal respiratory effort Auscultation: clear to auscultation bilaterally Cardio Jugular venous distension: no JVD Rate: regular rate Rhythm: regular rhythm Heart sounds: S1 normal heart sound present and S2 normal heart sound present GI Inspection: Yes normal to inspection Palpation (GI): Soft to palpation and nontender Auscultation: normal bowel sounds Skin General skin exam: no rashes or lesions noted Neuro General: patient oriented x3, no focal motor deficits and No confusion Extrem General: Yes full ROM Psych Appearance: grossly normal Assessment and Plan Assessment & Plan (1) Physical exam: Code(s): Z00.00 - Encounter for general adult medical examination without abnormal findings Plan: Repeat in a year (2) Mild recurrent major depression: Code(s): F33.0 - Major depressive disorder, recurrent, mild Plan: Continue fluoxetine Orders: Orders Comprehensive [place]. Panel Fast Today Z00.00 - Encounter for general adult medical examination without abnormal findings Lipid Panel Today Z00.00 - Encounter for general adult medical examination without abnormal findings Medications: Refilled pantoprazole 40 mg PO DAILY 90 days 90 tabs 1RF Coding Level of Care Code Est Pt Prev Care 40-64y(04948) Diagnoses Physical exam Z00.00 Mild recurrent major depression F33.0 Time Spent (min) 31
== END 2022-09-11 17:32 | disposition home or self-care (01) ==
PROVIDERS: PCP Internal Medicine; Visit Provider Internal Medicine
DX: Z00.00 Encounter for general adult medical examination without abnormal findings (principal); F33.0 Major depressive disorder, recurrent, mild
CPT/HCPCS: 99396

== ENCOUNTER 2022-10-17 14:01 | Outpatient (AMB) | payer OTHER, SELFPAY ==
--- NOTE | 2022-10-17 14:06 | A.OFFVIS_ITS ---
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 Patient reports that both of her wrists are equal to pain. She states ongoing pain for about 3 years and it been getting worse over the last year. 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 Her pain on the both wrists goes from her elbow to her wrist to her middle finger per patient. Patient states that her numbness is worse at night in her right hand, it comes and goes. 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 She says she was given an appointment and told she had fractures in both of her hands . She says she was told this when she received a back injection by Pain Management. She reports a history of several falls in the past, but says she does not often fall onto her hands or wrists and is unsure how she would have fractures her hands. She complains of a throbbing pain extending from the dorsal aspect of her left hand across her wrist and up to her dorsal mid forearm. Most of the pain is in the dorsal mid forearm. She also complains of pain in her right middle finger She complains of numbness in her bilateral arms & hands, worse in the right and worse at night. She follows with Pain Management for cervical radiculopathy & polyarthralgia, and according to their note from 08/30/22, a NCS of her LUE was negative or carpal or cubital tunnel syndrome, and she did not have a NCS done for her RUE. The NCS is not available for review at this time [facility] Medical History Diarrhea Dizziness Ear discomfort Enterocolitis Precordial chest pain Sinusitis Surgical History H/O colonoscopy History of esophagogastroduodenoscopy (EGD) Family History Father Cancer Mother Diabetes Maternal Grandmother Cancer Colon cancer Paternal Grandmother Cancer Uterine cancer Social History Housing: Apartment Alcohol intake: former Patient Tobacco Use Status: Never used Tobacco e-Cigarette/Vaping Use: Never Used Second Hand Smoke Exposure: No service: No Current occupational status: unemployed Cognitive needs: No Hearing needs: No Vision needs: No Female Reproductive History Menstrual Age of Menarche: 12 Review of Systems Const All systems reviewed & are unremarkable except as noted in HPI and below Physical Exam Vital Signs: BMI result Body Mass Index 28.8 Const General: cooperative, healthy appearing and no acute distress Orientation/consciousness: patient oriented x3 HEENT Head: Yes normocephalic and Yes atraumatic Eyes EOM: EOMs intact bilaterally Resp Effort & Inspection: normal respiratory effort and able to speak in complete sentences Cardio Jugular venous distension: no JVD Skin General skin exam: turgor normal Rashes: no rashes Neuro General: patient oriented x3 Extrem Other: Evaluation of Bilateral Upper Extremity: The patient is alert, oriented, and in no acute distress Neuro: Median, Ulnar, Radial nerves motor and sensory intact and sensation is normal to the tips of all digits Vascular: Cap refill brisk ROM: She can make a fist and extend all her digits She had no tenderness to her right middle finger. No deformity, and full active flexion and extension of the finger Skin: No lacerations or abrasions. General: No Ecchymosis. No Erythema or evidence of infection. She complains of non-focal pain in the volar & dorsal aspect of her left forearm, wrist, and ulnar aspect of her hand. No focal areas of tenderness. No swelling or erythema. Good strength in finger extension, all digits, and in wrist extension Radiographs: 3 views of the bilateral wrists + a scaphoid view & bilateral forearms from 08/14/22 were reviewed by me today in clinic. They show no fractures, dislocations, or significant arthritic changes bilaterally. She has a cyst in the left capitate. Nerve Conduction Study: Left median and ulnar motor and sensory studies were performed, left radial sensory study was performed, and paraspinal and limb muscles were tested with a needle. ? IMPRESSION:? This study did not reveal any significant abnormality to suggest entrapment neuropathy or radiculopathy. Ewa Cardenas MD 09/14/2021 Psych Appearance: grossly normal Affect: normal affect Attitude: cooperative Assessment & Plan Assessment & Plan (1) Numbness of right hand: Code(s): R20.0 - Anesthesia of skin (2) Cervical spondylosis: Code(s): M47.812 - Spondylosis without myelopathy or radiculopathy, cervical region (3) Polyarthralgia: Code(s): M25.50 - Pain in unspecified joint (4) Left forearm pain: Code(s): M79.632 - Pain in left forearm (5) Pain of right middle finger: Code(s): M79.644 - Pain in right finger(s) Plan Assessment & Plan: 1. Left non-focal pain in entire forearm & occasionally wrist and hand She was told she had a fracture by Pain Management I carefully reviewed her radiographs and we assured her that she had no fractures in her upper extremities Patient requested a brace to wear, but I explained this is likely to make her stiff and is not indicated. 2. Right middle finger pain No tenderness. Full active range of motion without evidence of discomfort. All joints stable on exam. No recollection of injury to right middle finger. No tenderness over A1 stas and no locking or catching. 3. Right hand numbness in the median nerve distribution Symptoms intermittent, but daily, worse at night I ordered a NCS to assess for peripheral neuropathy vs cervical radiculopathy She has a hx of cervical radiculopathy and follows with Pain management for this She will follow up when completed for review and to discuss her RUE numbness Scribed for Mary lAice Chino MD by Joaquin Peña, medical transport specialist, on 10/17/22 at 2:35 PM, EST. Orders: Orders NE nerve conduction velocity Today R20.0 - Anesthesia of skin, R20.2 - Paresthesia of skin Coding Level of Care Code New Pt Level 3 (93990) Diagnoses Numbness of right hand R20.0 Cervical spondylosis M47.812 Polyarthralgia M25.50 Left forearm pain M79.632 Pain of right middle finger M79.644
[2022-10-17 14:18] VITALS: BMI 28.8
== END 2022-10-17 14:38 | disposition home or self-care (01) ==
PROVIDERS: PCP Internal Medicine; Visit Provider Orthopaedic Surgery
DX: M79.632 Pain in left forearm (principal); M79.644 Pain in right finger(s); R20.0 Anesthesia of skin; M47.812 Spondylosis without myelopathy or radiculopathy, cervical region
CPT/HCPCS: 99203

== ENCOUNTER → 2022-10-17 14:01 | Outpatient (BNVA) | payer OTHER, SELFPAY | PROVIDERS: PCP Internal Medicine; Visit Provider Orthopaedic Surgery | DX: R20.0 Anesthesia of skin (principal); R20.2 Paresthesia of skin; M25.50 Pain in unspecified joint; M79.632 Pain in left forearm; M79.644 Pain in right finger(s); M47.812 Spondylosis without myelopathy or radiculopathy, cervical region | CPT/HCPCS: 99202 ==

== ENCOUNTER 2024-03-15 03:08 | Emergency (ER) | payer SELFPAY ==
--- NOTE | ~2024-03-15 | XR_ITS ---
CLINICAL HISTORY: cp 1 view chest x-ray Comparison: CR - CHEST 2 VIEWS [id number] - 12/18/16 20:21 EDT Findings: No consolidation or effusion. Heart size is normal. No acute fracture. IMPRESSION: 1. No acute findings. This document has been electronically signed by: Bo rPuitt MD, PHD on 03/15/2024 03:46:25
--- NOTE | 2024-03-15 03:09 | ECG_ITS ---
Test Reason : cp Blood Pressure : */* mmHG Vent. Rate : 92 BPM Atrial Rate : 92 BPM P-R Int : 122 ms QRS Dur : 78 ms QT Int : 392 ms P-R-T Axes : 79 68 70 degrees QTcB Int : 484 ms Normal sinus rhythm Nonspecific ST abnormality Prolonged QT Abnormal ECG When compared with ECG of 25-May-2021 13:51, No significant change was found Referred By: Generic ED Physician Electronically Signed By: DAVE THOMAS MD
[2024-03-15 03:19] VITALS: BP 153/79; PULSE 103; RESP 14; TEMP 36.4; O2SAT 100; BMI 26.2
[2024-03-15 04:11] LABS: Basophils Percent Auto 0.5 % (0-2); Eosinophils Absolute Auto 0.4 X10*3/uL (0.0-0.4); Eosinophils Percent Auto 4.7 % (0-4); Hematocrit 39.1 % (37.0-47.0); Hemoglobin 13.1 g/dl (12.0-16.0); Imm Gran Abs Auto 0.02 X10*3/uL (0.00-0.03); Imm Gran Pct Auto 0.2 % (0.0-0.4); Lymphocytes Absolute Auto 3.4 X10*3/uL (1.2-4.9); Lymphocytes Percent Auto 38.4 % (20-40); MANUAL DIFF FLAG NO; Mean Corpuscular HGB Conc 33.5 g/dl (31.0-35.0); Mean Corpuscular Hemoglobin 28.6 pg (27.0-33.0); Mean Corpuscular Volume 85.4 fL (80.0-98.0); Monocytes Absolute Auto 0.6 X10*3/uL (0.1-1.2); Monocytes Percent Auto 6.8 % (2-11); Neutrophils Absolute Auto 4.3 x10*3/uL (2.0-8.3); Neutrophils Percent Auto 49.4 % (45-73); Platelet Count 304 X10*3/uL (160-400); Red Blood Count 4.58 X10*6/uL (4.20-5.50); Red Cell Distribution Width 13.4 % (11.0-16.0); White Blood Count 8.8 X10*3/uL (4.8-10.8)
[2024-03-15 04:31] LABS: Troponin-I High Sensitivity < 2.7 ng/L (<3.5-17.0)
[2024-03-15 04:35] LABS: Alanine Aminotransferase 13 U/L (0-31); Albumin Level 4.2 g/dL (3.5-5.0); Alkaline Phosphatase 67 U/L (39-117); Anion Gap 14 (12-20); Aspartate Amino Transferase 24 U/L (5-31); Bilirubin Total 0.3 mg/dL (0.0-1.0); Blood Urea Nitrogen 13 mg/dL (9-16); Calcium 9.5 mg/dL (8.4-10.2); Carbon Dioxide 22 mmol/L (22-29); Chloride 108 mmol/L (96-108); Creatinine Clr Calc Pharmacy 77.8; Estimated Glomerular Filt Rate > 60; Glucose Random 98 mg/dL (60-115); HCG Quantitative < 2 mIU/mL; Potassium 3.5 mmol/L (3.3-5.1); Sodium 140 mmol/L (135-145); Total Protein 8.3 g/dL (6.5-8.0)
--- OUTSIDE RECORDS SUMMARY | 2024-03-15 09:03 | XMS_ITS | Clinical Summary ---
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 DX:Herniation of cervical intervertebral disc with radiculopathy Chronic low back pain 09/24/2016 DX:Chronic low back pain; COMMENT: Work injury 2013 Tinea pedis 09/24/2016 DX:Tinea pedis Esophageal reflux 09/24/2016 DX:Esophageal reflux Anxiety 12/25/2016 DX:Anxiety; COMM ENT: F/u [facility] Family History Medical History Relation Name Comments Heart attack Father age unknown, HT N Colon cancer Maternal Grandmother Diabetes Mother stroke Uterine cancer Paternal Grandmother Breast cancer Neg Hx Cervical cancer Neg Hx Ovarian cancer Neg Hx Relation Name Status Comments Father Alive Maternal Grandfather Maternal Grandmother Mother Paternal Grandfather Alive Paternal Grandmother Sister Alive Social History Tobacco Use Types Packs/Day Years Used Date Smoking Tobacco: Never Smokeless Tobacco: Never Alcohol Use Standard Drinks/Week Comments No 0 (1 standard drink = 0.6 oz pur e alcohol) Sex and Gender Information Value Date Recorded Sex Assigned at Not on file Gender Identity Not on file Sexual Orientation Not on file Obstetrics History Plan of Treatment Health Maintenance Due Date Last Done Comments Breast Cancer Screening 1978 DTaP,Tdap,and Td Vaccines (1 - Tdap) 1997 Hepatitis B Vaccines (1 of 3 - 19+ 3-dose series) 1997 Cervical Cancer Screening: P ap Smear 06/15/1999 COVID-19 Vaccine (2023-2 5 season) 2023 Influenza Vaccine (#1) 2023 HIB Vaccines Aged Out No longer eligi ble based on patient's age to complete this topic HPV Vaccines Aged Out No longer eligi ble based on patient's age to complete this topic Hepatitis A Vaccines Aged Out No long er eligible based on patient's age to complete this topic IPV Vaccines Aged Out No longer eligi ble based on patient's age to complete this topic MMR Vaccines Aged Out No longer eligi ble based on patient's age to complete this topic Meningococcal ACWY Vaccine Aged Out N o longer eligible based on patient's age to complete this topic Pneumococcal Vaccine: Pediat rics (0 to 5 Years) and At-Risk Patients (6 to 64 Years) Aged Out No longer eligible b ased on patient's age to complete this topic RSV Immunization Patients Un esteban 20 months Aged Out No longer eligible b ased on patient's age to complete this topic Varicella Vaccines Aged Out No longer eligible based on patient's age to complete this topic Care Teams Unified Communications Engineer Relationship Specialty Start Date End Date Eduardo Hernandez MD [address] [place] [address] Dr [address] [facility] [place] [address] PCP - General Internal Medicine 07/31/18
--- NOTE | 2024-03-15 09:27 | ED_ITS ---
HPI - Chest Pain General Chief Complaint: Chest Pain Stated Complaint: CP Time Seen by Provider: 03/15/24 09:05 Source: patient Mode of arrival: ambulatory Limitations: no limitations History of Present Illness HPI narrative: This is a 43 years old female patient presented to the emergency department complaining of right side chest pain which is started yesterday the pain is worse with movement. She states that she fell on Saturday she was in [place] she returned from [place] on Saturday. She denies any past medical history no diabetes no hypertension no hypercholesterolemia she does not smoke. She has chronic neck pain for which she takes tramadol. MD complaint: chest pain Onset (ago): day(s) (1) Timing of current episode: constant Onset: during rest Pain location: substernal and right chest Pain radiation: right arm Severity: moderate Quality: aching Relieving factors: other (movement) Exacerbating factors: nothing Risk Factors Coronary artery disease risk factors: none Thoracic aortic dissection risk factors: none Related Data Home Medications ?Medication ?Instructions ?Recorded ?Confirmed meclizine 25 mg tablet 25 mg PO DAILY 01/28/20 09/11/22 bisacodyl 5 mg tablet,delayed 10 mg PO BEDTIME 04/12/22 09/11/22 release (Laxative (bisacodyl)) buspirone 5 mg tablet 5 mg PO TID 08/13/22 09/11/22 fluoxetine 20 mg capsule 20 mg PO DAILY 08/13/22 09/11/22 lorazepam 0.5 mg tablet 0.5 mg PO BID PRN panic attack 08/13/22 09/11/22 Previous Rx's ?Medication ?Instructions ?Recorded gabapentin 300 mg capsule 300 mg PO BEDTIME 90 days #90 caps 03/13/21 hydrocortisone 2.5 % topical cream 1 appl DC BID PRN hemorrhoids #30 09/21/21 with perineal applicator grams (Proctosol HC) linaclotide 72 mcg capsule 72 mcg PO QAM #30 caps 10/19/21 (Linzess) hydrocortisone 1 % topical cream 1 appl topical TID PRN skin 01/24/22 (Anti-Itch (hydrocortisone)) irritation 30 days #28.4 grams clotrimazole-betamethasone 1 1 appl topical BID 2 weeks #45 04/12/22 %-0.05 % topical cream grams methocarbamol 750 mg tablet 750 mg PO BID PRN for muscle spasm 06/18/22 30 days #60 tabs pantoprazole 40 mg tablet,delayed 40 mg PO DAILY 90 days #90 tabs 09/11/22 release bupropion HCl 150 mg 24 hr tablet, 150 mg PO QAM 90 days #90 tabs 10/12/22 extended release oxycodone 5 mg tablet 5 mg PO Q6H PRN pain #15 tabs 03/15/24 Allergies Allergy/AdvReac Type Severity Reaction Status Date / Time aspirin [ASPIRIN] Allergy Severe Rash Verified 03/15/24 03:26 penicillin V Allergy Severe rash Verified 03/15/24 03:26 shrimp Allergy Severe anaphlaxysi Verified 03/15/24 03:26 s tape of ekg trace Allergy Severe rash Uncoded 09/11/22 16:46 Review of Systems 2 Constitutional: Constitutional: Reports no additional constitutional complaints ENT: Reports system reviewed and no additional complaints, except as documented Gastrointestinal: Gastrointestinal: Reports no additional gastrointestinal complaints PMFSH Past Medical History Attestation statement: The following information was validated with the patient. Medical History Precordial chest pain Dizziness Ear discomfort Diarrhea Enterocolitis Sinusitis Surgical History H/O colonoscopy History of esophagogastroduodenoscopy (EGD) Family History Family History Father Cancer Mother Diabetes Maternal Grandmother Cancer Colon cancer Paternal Grandmother Cancer Uterine cancer Social History Social History Housing: Apartment Alcohol intake: former Patient Tobacco Use Status: Never used Tobacco e-Cigarette/Vaping Use: Never Used Second Hand Smoke Exposure: No Advance Directives: No Advance Directives Information Provided: Yes Do you have a plan to hurt others: No Plan service: No Current occupational status: unemployed Cognitive needs: No Hearing needs: No Vision needs: No Physical Exam 2 Vital Signs: Vital Signs: Last Vital Signs Temp 0 F L 03/15/24 12:43 Pulse 54 03/15/24 12:43 Resp 16 03/15/24 12:43 BP 123/85 03/15/24 12:43 Pulse Ox 100 03/15/24 12:43 O2 Del Method Room Air 03/15/24 12:43 BMI result Body Mass Index 26.2 She looks well she is not toxic-appearing no distress Const: General: cooperative, comfortable and no acute distress Nutritional Appearance: average body habitus Orientation/consciousness: patient oriented x3 Limitations: no limitations HEENT: Head: Yes normal to inspection General nose exam: Normal external nose present Face and sinus: Yes normal facial exam Mouth: Normal oral and palatal mucosa present Eyes: General: appearance normal, both eyes and all related structures EOM: EOMs intact bilaterally Neck: Neck: Yes normal visual inspection and Yes full ROM Chest: Chest palpation & inspection: normal inspection of the chest Resp: Effort & Inspection: normal respiratory effort Auscultation: clear to auscultation bilaterally Cardio: Jugular venous distension: no JVD Rate: regular rate Rhythm: r egular rhythm GI: Inspection: Yes normal to inspection Palpation (GI): Soft to palpation, not firm and nontender Skin: General skin exam: no rashes or lesions noted Lesions: no lesions Rashes: no rashes Neuro: General: patient oriented x3 Course Reevaluation(s) Reevaluation #1: Workup is negative delta troponin flat D-dimer negative anticipate discharge Time: 12:30 Medical Decision Making Medical Decision Making [facility] Narrative: Patient presented with a right-sided pain we will obtain EKG high sensitive D- dimer Differential Diagnosis Differential Diagnoses: The differential diagnosis associated with the presentation includes ACS/pericarditis/noncardiac chest pain Admission/Observation Consideration of admission/observation: Escalation of care including admission/observation considered Lab Data [facility] Lab Attestation statement: I reviewed the patient's lab results. 03/15/24 04:05 03/15/24 04:05 Labs: Lab Results 03/15/24 03/15/24 Range/Units 04:05 10:49 WBC 8.8 (4.8-10.8) X10*3/uL RBC 4.58 (4.20-5.50) X10*6/uL Hgb 13.1 (12.0-16.0) g/dl Hct 39.1 (37.0-47.0) % MCV 85.4 (80.0-98.0) fL MCH 28.6 (27.0-33.0) pg MCHC 33.5 (31.0-35.0) g/dl RDW 13.4 (11.0-16.0) % Plt Count 304 (160-400) X10*3/uL MPV 10.0 (9.4-12.3) fL Immature Gran % (Auto) 0.2 (0.0-0.4) % Neut % (Auto) 49.4 (45-73) % Lymph % (Auto) 38.4 (20-40) % [place] % (Auto) 6.8 (2-11) % Eos % (Auto) 4.7 H (0-4) % Baso % (Auto) 0.5 (0-2) % Lymph # (Auto) 3.4 (1.2-4.9) X10*3/uL [place] # (Auto) 0.6 (0.1-1.2) X10*3/uL Eos # (Auto) 0.4 (0.0-0.4) X10*3/uL Baso # (Auto) 0.0 (0.0-0.2) X10*3/uL Abs Immat Gran (auto) 0.02 (0.00-0.03) X10*3/uL Absolute Neuts (auto) 4.3 (2.0-8.3) x10*3/uL Absolute Nucleated RBC 0.000 (0.0-0.012) X10*3/uL Nucleated RBC % (auto) 0.0 (0.0-0.2) /100WBC D-Dimer High Sensitivty < 150 NG/ML Sodium 140 (135-145) mmol/L Potassium 3.5 (3.3-5.1) mmol/L Chloride 108 (96-108) mmol/L Carbon Dioxide 22 (22-29) mmol/L Anion Gap 14 (12-20) BUN 13 (9-16) mg/dL Creatinine 0.97 (0.5-1.4) mg/dL Estim Creat Clear Calc 77.8 Estimated GFR > 60 Random Glucose 98 (60-115) mg/dL Calcium 9.5 (8.4-10.2) mg/dL Total Bilirubin 0.3 (0.0-1.0) mg/dL AST 24 (5-31) U/L ALT 13 (0-31) U/L Alkaline Phosphatase 67 (39-117) U/L Troponin I High Sens < 2.7 < 2.7 (<3.5-17.0) ng/L Total Protein 8.3 H (6.5-8.0) g/dL Albumin 4.2 (3.5-5.0) g/dL Beta HCG, Quant < 2 mIU/mL Independent Interpretation I performed an independent interpretation of an: EKG (EKG was reviewed by me normal sinus rhythm no ischemic changes normal EKG) and Plain X-Ray Interpretation: Normal EKG reviewed interpreted by me Radiology Impression Discussion of test interpretation with radiology: I have reviewed the radiologist's reading. Discharge Plan Discharge Clinical Impression: Chest wall pain Chest pain Qualifiers: Chest pain type: unspecified Qualified Code(s): R07.9 - Chest pain, unspecified Patient Disposition: Home, Self-Care Instructions: Chest Wall Pain (ED) Prescriptions: New oxycodone 5 mg tablet 5 mg PO Q6H PRN (Reason: pain) Qty: 15 0RF Rx Instructions: partial filing upon pt request; Partial Fill upon patient request. No Action gabapentin 300 mg capsule 300 mg PO BEDTIME 90 Days Qty: 90 1RF hydrocortisone [Proctosol HC] 2.5 % cream with perineal applicator 1 appl DC BID PRN (Reason: hemorrhoids) Qty: 30 0RF bupropion HCl 150 mg tablet extended release 24 hr 150 mg PO QAM 90 Days Qty: 90 0RF meclizine 25 mg tablet 25 mg PO DAILY hydrocortisone [Anti-Itch (HC)] 1 % cream 1 appl topical TID PRN (Reason: skin irritation) 30 Days Qty: 28.4 1RF pantoprazole 40 mg tablet,delayed release (DR/EC) 40 mg PO DAILY 90 Days Qty: 90 1RF bisacodyl [Laxative (bisacodyl)] 5 mg tablet,delayed release (DR/EC) 10 mg PO BEDTIME clotrimazole-betamethasone 1-0.05 % cream 1 appl topical BID 14 Days Qty: 45 1RF Rx Instructions: Use externally only up to twice a day for maximum of 2 weeks Linzess 72 mcg capsule 72 mcg PO QAM Qty: 30 6RF methocarbamol 750 mg tablet 750 mg PO BID PRN (Reason: for muscle spasm) 30 Days Qty: 60 2RF buspirone 5 mg tablet 5 mg PO TID fluoxetine 20 mg capsule 20 mg PO DAILY lorazepam 0.5 mg tablet 0.5 mg PO BID PRN (Reason: panic attack) Interventions: ED Discharge Assessment Last Done: 03/15/24 12:43 Discharge Date/Time: 03/15/24 12:44 Print Language: Bahamian
[2024-03-15 10:54] VITALS: BP 123/85; PULSE 54; RESP 16; O2SAT 100
[2024-03-15 11:01] LABS: D Dimer High Sensitivity < 150 NG/ML
[2024-03-15 11:24] LABS: Troponin-I High Sensitivity < 2.7 ng/L (<3.5-17.0)
[2024-03-15 12:43] VITALS: BP 123/85; PULSE 54; RESP 16; TEMP -17.7; TEMP 0; O2SAT 100
== END 2024-03-15 12:44 | disposition home or self-care (01) ==
PROVIDERS: Emergency Provider Emergency Medicine
DX: R07.89 Other chest pain (principal); M54.2 Cervicalgia; R10.2 Pelvic and perineal pain; Z79.899 Other long term (current) drug therapy
CPT/HCPCS: 36415; 71045; 80053; 84484; 84702; 85025; 85379; 93005; 99283

== ENCOUNTER → 2024-03-15 03:09 | Outpatient (BNV) | payer SELFPAY | PROVIDERS: Emergency Provider Emergency Medicine; Visit Provider Internal Medicine Cardiovascular Disease | DX: R94.31 Abnormal electrocardiogram [ECG] [EKG] (principal) | CPT/HCPCS: 93010 ==

== ENCOUNTER → 2024-03-15 03:27 | Outpatient (BNV) | payer SELFPAY | PROVIDERS: Visit Provider General Practice | DX: R07.9 Chest pain, unspecified (principal) | CPT/HCPCS: 71045 ==

== ENCOUNTER 2024-11-19 02:38 | Emergency (ER) | payer OTHER, SELFPAY ==
--- OUTSIDE RECORDS SUMMARY | 2024-11-16 10:03 | XMS_ITS | Encounter Summary ---
Author Organization [facility] Address [address] [place] [phone] Phone Care Team Providers Care Cleaning Team Member Name Role Phone Fiona Hagen MD Primary Care Provid er Reason for Visit * Reason Comments Palpitations Encounter Details Date Type Department Care Team (Late st Contact Info) Description 11/16/2024 10:03 AM EDT - 11/16/2024 4:37 PM EDT Emergency [facility] [address] [place] [address] Oliverio Grigsby MD [address] [place] [address] [email or web address] Discharge Disposition: Home or Self Care Social History Tobacco Use Types Packs/Day Years Used Date Smoking Tobacco: Never Assessed Education Answer Date Recorded Are you interested in more education? Not on ochoa e 06/16/2022 Are you concerned about learning? Not on file 06/16/2022 No 06/16/2022 No 06/16/2022 Food Answer Date Recorded Within the past 6 months we worried whether our food would run out before we got money to buy more. Never True 11/16/2024 Within the past 6 months the food we bought just didn't last and we didn't have enough money to get more. Never True Residential Stability Answer Date Recor ded What is your housing situation today? I have todd sing 11/16/2024 How many times have you move d in the past 12 months? Zero (I did not move) 11/16/2024 Paying for Meds Answer Date Recorded Do you have trouble paying for medicines? No 11/16/2024 Paying Utility Bills Answer Date Record ed Do you have trouble paying your heating or elect ricity bill? No 11/16/2024 Transportation Answer Date Recorded Has the lack of transportati on kept you from medical appointments or from getting medications? No 11/16/2024 Digital Access Answer Date Recorded No 11/16/2024 Yes 11/16/2024 Do you have reliable internet access at home? Ye s 11/16/2024 Do you have a device (e.g., phone, tablet, computer) with a working camera? Yes 11/16/2024 Intimate Partner Violence Answer Date R ecorded Are you denied basic needs s uch as food, clothing, or medical care? No 11/16/2024 In the past 12 months have y ou been in a relationship with a person who hurts, threatens, or tries to control you? No 11/16/2024 Are you denied basic needs s uch as food, clothing, or medical care? No 11/16/2024 In the past 12 months have y ou been in a relationship with a person who hurts, threatens, or tries to control you? No 11/16/2024 Comments Unknown Sex and Gender Information Value Date Recorded Sex Assigned at Female 03/10/2021 9:50 PM EST Legal Sex Female 9:28 PM EST Gender Identity Female 03/10/2021 9:50 PM EST Sexual Orientation Straight 03/10/2021 9: 50 PM EST documented as of this encounter Last Filed Vital Signs Vital Sign Reading Time Taken Comments Blood Pressure 109/73 11/16/2024 2:58 PM EDT Pulse 74 11/16/2024 2:58 PM EDT Temperature 36.9 C (98.5 F) 11/16/2024 3:10 PM EDT Respiratory Rate 14 11/16/2024 2:58 PM EDT Oxygen Saturation 100% 11/16/2024 2:58 PM EDT Inhaled Oxygen Concentration - - Weight - - Height 170.2 cm (5' 7 ) 11/16/2024 9:52 AM EDT Body Mass Index - - documented in this encounter Functional Status * Calculated C-SSRS Risk Score (Lifetime/Recent) Answer Date of Assessment Author No Risk Indicated 11/16/2024 9:55 AM EDT Bruna Peña, ALEXANDRA * [place] Suicide Severity Rating Scale (Screener/Recent Self-Report) Question Answer Date of Assessment Author 1. Wish to be (Past 1 Month) No 025 9:55 AM EDT Bruna Foster, ALEXANDRA 2. Non-Specific Active Suici luciano Thoughts (Past 1 Month) No 11/16/2024 9:55 AM EDT Stephanie Foster RN 6. Suicidal Behavior (Lifetime) No 9:55 AM EDT Bruna Foster RN documented as of this encounter Discharge Instructions * Discharge Instructions* Oliverio Grigsby MD - 11/16/2024 3:02 PM EDT Please make a primary care appointment as soon as possible. If you become concerned for any reason,go immediately to the emergency department. * Attachments The following attachments cannot be sent through Care Everywhere. * Abdominal Pain (PCOI) (Senegalese) * Palpitations (Senegalese) * Chest Pain (Senegalese) documented in this encounter Medications at Time of Discharge morphine (MSIR) 15 MG tablet Take 0.5 tablets (7.5 mg total) by mouth every 4 (four) hours as needed for pain (specific location in comments). Partial fill ok 5 tablet 03/11/2021 documented as of this encounter ED Notes * Letty Lara RN - 11/16/2024 3:10 PM EDT ED Nursing Progress Note Pt verbalized understanding of d/c instructions and to follow up with PCP. Pt understood to return to ED with any new or worsening symptoms. Pt ambulated out of department with steady gait. In personinterpreter services at bedside for discharge instructions. * Letty Lara RN - 11/16/2024 11:01 AM EDT ED Nursing Progress Note Surgical Instruments Inspector at bedside. MD Grigsby at bedside. Pt states they saw their PCP a year ago in [place] and lost insurance and had not been seen by PCP since. Pt states they have hx of anxiety and whenpalpitations began they felt anxious and had SOB pt states they have discomfort in left arm. Pt states they had episode of diarrhea without blood noted. Pt states epigastric pain is is crampy and between epigastric and umbilicale region. Pt remains on continuous cardiac monitoring. * Letty Lara RN - 11/16/2024 10:38 AM EDT ED Nursing Progress Note Pt sitting in stretcher attached to cardiac monitoring. Pt is beninese speaking and requested distillation operator. Surgical Instruments Inspector services called and will be down for translating. Pt aware and agreeable to plan. * Bruna Foster RN - 11/16/2024 9:50 AM EDT Pt reports I was at work and I was not able to breathe and started feeling tachycardia . Pt reports this has happened in the past. Pt reports symptoms at this time. Pt reports epigastric abdominal pain 10/28. Pt reports episode of diarrhea today. Pt HR in the 90s in Triage. EKG completed in Triage. * Oliverio Grigsby MD - 11/16/2024 9:42 AM EDT Chief Complaint Chief Complaint Patient presents with Palpitations History of Present Illness The patient, Angela Diaz,is a 44 y.o. female who presents for evaluation of Palpitations 44 yo f, hx of anxiety, here for evaluation of pain in chest. Pt states she began to feel extra heart beats, then began to feel more pain. Pt also complains of pain of left arm. Pt also notes pain inabdomen. Pt also had diarrhea. Unless otherwise specified, I have reviewed and agree with the triage and nursing notes. ROS A ten point review of systems was negative except what was noted in the HPI. Review of Systems Past Medical History No past medical history on file. Past Surgical History No past surgical history on file. Home Medications Prior to Admission medications Medication Sig morphine (MSIR) 15 MG tablet 7.5 mg, Oral, Every 4 hours PRN, Partial fill ok Allergies Allergies Allergen Reactions Adhesive From ECG leads Aspirin Penicillins Shellfish Containing Products Social and Family History Social History Tobacco Use Smoking status: Not on file Smokeless tobacco: Not on file Substance Use Topics Alcohol use: Not on file Social History Substance and Sexual Activity Drug Use Not on file No family history on file. Physical Exam Vital Signs: ED Triage Vitals [11/16/24 0952] Encounter Vitals Group BP 130/75 Systolic BP Percentile Diastolic BP Percentile Heart Rate 90 Respiratory Rate 16 Temperature 37.1 ??C (98.7 ??F) Temp src SpO2 100 % Weight Height 5' 7 Head Circumference Peak Flow Pain Score Pain Loc Pain Education Exclude from Growth Chart Physical Exam Gen: well developed, no acute distress Head: Normocephalic, atraumatic. Eyes: PERRLA, EOMI. Vision grossly intact Ears: External NL, hearing grossly intact. Oropharynx: moist mucus membranes. Normal appearance Neck: Supple, Trachea midline Lungs: Clear to auscultation b/l. No wheezes, rales or rhonchi Cardiac: RRR, no murmurs, rubs or gallops. Abd: Soft, non-tender, non-distended. Back: Non-tender. No CVA tenderness Extr: NL appearance, NL Rom Neuro: AAOx3, NL strength, NL sensation Skin: NL appearance, no rash or lesions Laboratory Testing Results for orders placed or performed during the hospital encounter of 11/16/24 LFTs (hepatic panel) Result Value Ref Range ALKALINE PHOSPHATASE 80 39 - 117 U/L TOTAL BILIRUBIN 0.5 0.0 - 1.2 mg/dL DIRECT BILIRUBIN <0.1 0.0 - 0.2 mg/dL Bilirubin (Indirect) NOT CALCULATED 0 - 1.5 mg/dL AST 19 0 - 37 U/L ALT 11 0 - 40 U/L TOTAL PROTEIN 7.6 6.5 - 8.0 g/dL ALBUMIN 4.1 3.9 - 4.8 g/dL GLOBULIN 3.5 1 - 4.8 g/dL A/G Ratio 1.17 1.00 - 4.80 RATIO Lipase Result Value Ref Range LIPASE 27 16 - 63 U/L Magnesium Result Value Ref Range MAGNESIUM 2.0 1.6 - 2.6 mg/dL HCG (tumor marker) Result Value Ref Range HCG BETA 0.6 mIU/mL Troponin Specimen: Blood Result Value Ref Range Troponin-T, HS Gen5 <6 0 - 9 ng/L Troponin Specimen: Blood Result Value Ref Range Troponin-T, HS Gen5 <6 0 - 9 ng/L Basic metabolic panel Specimen: Blood Result Value Ref Range SODIUM 139 133 - 146 mmol/L CHLORIDE 105 96 - 108 mmol/L POTASSIUM 4.0 3.3 - 5.1 mmol/L CO2 22 21 - 35 mmol/L BUN 13 6 - 19 mg/dL CREATININE 0.70 0.5 - 1.5 mg/dL GLUCOSE 88 70 - 99 mg/dL CALCIUM 9.5 8.4 - 10.3 mg/dL EGFR 108 >59 mL/min/1.73m2 ANION GAP 16 10 - 20 mmol/L CBC and differential Specimen: Blood Result Value Ref Range WBC 9.90 4.00 - 11.00 K/uL RBC 4.30 4.00 - 5.20 M/uL HGB 12.6 12.0 - 16.0 g/dL HCT 37.9 36.0 - 46.0 % PLT 268 150 - 450 K/uL MCV 88.1 80.0 - 100.0 fL MCH 29.3 27.0 - 31.0 pg MCHC 33.2 32.0 - 36.0 g/dL RDW 13.0 11.5 - 14.5 % MPV 9.9 8.4 - 12.0 fL NRBC 0.00 0.00 /100 WBCs ABSOLUTE NRBC 0.00 0.00 K/uL DIFF METHOD Auto NEUTS 70.1 48.0 - 76.0 % LYMPHS 19.6 18.0 - 41.0 % MONOS 6.5 4.0 - 11.0 % EOS 2.9 0.0 - 5.0 % BASOS 0.5 0.0 - 1.5 % Granulocytes, immature (%) 0.4 0.0 - 0.9 % ABSOLUTE NEUTS 6.94 1.92 - 7.60 K/uL ABSOLUTE LYMPHS 1.94 0.72 - 4.10 K/uL ABSOLUTE MONOS 0.64 0.16 - 1.10 K/uL ABSOLUTE EOS 0.29 0.00 - 0.50 K/uL ABSOLUTE BASOS 0.05 0.00 - 0.15 K/uL Granulocytes, immature 0.04 0.00 - 0.09 K/uL Radiology Testing CT Abdomen/Pelvis Final Result 1. No acute findings in the abdomen or pelvis. 2. Fibroid uterus. ATTESTATION: I, Alee Cisneros as teaching physician, have reviewed the images for this case and if necessary edited the report originally created by Sid Guerrero. Chest Portable Final Result No acute abnormality. Medication from 11/16/2024 0942 to 11/16/2024 1512 Date/Time Order Dose Route Action Action by Comments 11/16/2024 1143 EDT famotidine (PF) (PEPCID) injection 20 mg 20 mg Intravenous Given Letty Lara RN -- 11/16/2024 1217 EDT iohexoL (OMNIPAQUE-350) 350 mg iodine/mL solution 75 mL 75 mL Intravenous Montserrat Crews -- [facility] Assessment and Plan: 44 yo f here for evaluation of chest pain and heart palpitations. Pt also complains of abdominal pain. Labs unremarkable. EKG shows prolonged Qtc, however mag is normal and pt denies any meds that prolong Qtc. CXR and CT unremarkable. Pt discharged in stable condition. Category 1: Tests, Studies or Independent Historians: Surgical Instruments Inspector: A medical and scientific illustrator was used during this visit. Category 2 and 3: Independent Interpretation of Tests, Consideration of Tests, or External Discussion of Results: Labs: Laboratory studies were interpreted. ECG: EKG studies were independently interpreted. Rate: 80 Rhythm: sinus rhythm T Wave Inversions: Yes Leads: V1 ST Depressions: No ST Elevations: No Clinical Impressions as of 11/16/24 1512 Palpitations Chest pain, unspecified type Generalized abdominal pain Critical Care Time: 0 minutes Clinical Impression Diagnosis Description Comment Final diagnoses Palpitations Palpitations -- Chest pain, unspecified type Chest pain, unspecified type -- Generalized abdominal pain Generalized abdominal pain -- Disposition: Home Oliverio Grigsby MD 11/16/24 1512 documented in this encounter Plan of Treatment Scheduled Orders Name Type Priority Associated Diagnoses Orde r Schedule Lab Add On: magnesium; serum hcg quantitative Lab STAT Once for 1 Occurrences starting 11/16/2024 until 11/16/2024 Lab Add On: lipase; LFT Lab STAT O nce for 1 Occurrences starting 11/16/2024 until 11/16/2024 documented as of this encounter Procedures Procedure Name Priority Date/Time Associated Diagnosis Comments CT ABDOMEN/PELVIS WITH CONTRAST Routine 11/16/2024 12:17 PM EDT XR CHEST PORTABLE Routine 11/16/2024 11: 38 AM EDT TROPONIN STAT 11/16/2024 11:02 AM EDT LFTS (HEPATIC PANEL) Routine 11/16/2024 10:10 AM EDT HCG (TUMOR MARKER) Routine 11/16/2024 10 :10 AM EDT CBC AND DIFFERENTIAL STAT 11/16/2024 10:10 AM EDT TROPONIN STAT 11/16/2024 10:10 AM EDT MAGNESIUM Routine 11/16/2024 10:10 AM EDT LIPASE Routine 11/16/2024 10:10 AM EDT BASIC METABOLIC PANEL STAT 11/16/2024 10:10 AM EDT ECG 12-LEAD STAT 11/16/2024 9:59 AM EDT documented in this encounter Results * CT ABDOMEN/PELVIS WITH CONTRAST (11/16/2024 12:17 PM EDT) Anatomical Region Laterality Modality Abdomen, Pelvis Computed Tomogra phy 11/16/2024 1:21 PM EDT Impressions 11/16/2024 2:16 PM EDT 1. No acute findings in the abdomen or pelvis. 2. Fibroid uterus. ATTESTATION: Sowmya, Alee Cisneros as teaching physician, have reviewed the images for this case and if necessary edited the report originally created by Sid Guerrero. Narrative 11/16/2024 2:[address] ABDOMEN/PELVIS WITH CONTRAST Referring clinician's provided indication for this examination in Epic: Abdominal pain, acute. TECHNIQUE: Multidetector-row CT of the abdomen and pelvis was performed after administration of intravenous contrast using tailored dose modulation techniques. Images were reconstructed in the axial, coronal, and sagittal planes. COMPARISON: None. FINDINGS: Lower Chest: No consolidation or pleural effusions. Mild groundglass attenuation in the lung bases likely representing atelectasis. Liver: No focal lesions. Biliary: Noninflamed gallbladder. No biliary ductal dilation. Spleen: No splenomegaly or focal lesions. Pancreas: No peripancreatic fat stranding or pancreatic duct dilatation. Adrenal Glands: No nodules. Kidneys/Ureters: No stones or hydronephrosis. Kidneys enhance homogeneously. Bowel: No dilation, bowel wall thickening or adjacent fat stranding. Normal appendix. Peritoneum/Retroperitoneum: No pneumoperitoneum or free fluid. Lymph Nodes: No lymphadenopathy. Pelvic Organs/Bladder: 3.5 cm right anterior fundal fibroid (900:34). No bladder wall thickening or inflammation. Vessels: Vessels enhance homogeneously. No aneurysm. Bones/Soft Tissues: Sclerosis along the iliac aspect of the left greater than right SI joints, can be seen with sacroiliitis. Bone island in the right superior acetabulum. Procedure Note Alee Cisneros MD - 11/16/2024 CT ABDOMEN/PELVIS WITH CONTRAST Referring clinician's provided indication for this examination in Epic:Abdominal pain, acute. TECHNIQUE: Multidetector-row CT of the abdomen and pelvis was performedafter administration of intravenous contrast using tailored dosemodulation techniques. Images were reconstructed in the axial, coronal,and sagittal planes. COMPARISON: None. FINDINGS: Lower Chest: No consolidation or pleural effusions. Mild groundglassattenuation in the lung bases likely representing atelectasis. Liver: No focal lesions. Biliary: Noninflamed gallbladder. No biliary ductal dilation. Spleen: No splenomegaly or focal lesions. Pancreas: No peripancreatic fat stranding or pancreatic duct dilatation. Adrenal Glands: No nodules. Kidneys/Ureters: No stones or hydronephrosis. Kidneys enhancehomogeneously. Bowel: No dilation, bowel wall thickening or adjacent fat stranding.Normal appendix. Peritoneum/Retroperitoneum: No pneumoperitoneum or free fluid. Lymph Nodes: No lymphadenopathy. Pelvic Organs/Bladder: 3.5 cm right anterior fundal fibroid (900:34). Nobladder wall thickening or inflammation. Vessels: Vessels enhance homogeneously. No aneurysm. Bones/Soft Tissues: Sclerosis along the iliac aspect of the left greaterthan right SI joints, can be seen with sacroiliitis. Bone island in theright superior acetabulum. IMPRESSION: 1. No acute findings in the abdomen or pelvis. 2. Fibroid uterus. ATTESTATION: I, Alee Cisneros as teaching physician, have reviewed theimages for this case and if necessary edited the report originally createdby Sid Guerrero. Oliverio Grgisby MD IMG CT ABD/PELVIS Final Result * XR Chest Portable (11/16/2024 11:38 AM EDT) Anatomical Region Laterality Modality Chest Computed Radiogr aphy 11/16/2024 12:0 1 PM EDT Impressions 11/16/2024 12:01 PM EDT No acute abnormality. Narrative 11/16/2024 12:01 PM EDT XR CHEST PORTABLE Referring clinician's provided indication for this examination in Epic: Pain COMPARISON: XR CHEST PORTABLE 2021- FINDINGS: Devices/Tubes/Lines: None. Lungs: No focal consolidation or pulmonary edema. Pleura: No pleural effusion or pneumothorax. Heart/Mediastinum: Normal heart and mediastinum. Bones/Soft Tissues: No significant abnormality. Procedure Note Alee Cisneros MD - 11/16/2024 XR CHEST PORTABLE Referring clinician's provided indication for this examination in Epic:Pain COMPARISON: XR CHEST PORTABLE FINDINGS: Devices/Tubes/Lines: None. Lungs: No focal consolidation or pulmonary edema. Pleura: No pleural effusion or pneumothorax. Heart/Mediastinum: Normal heart and mediastinum. Bones/Soft Tissues: No significant abnormality. IMPRESSION: No acute abnormality. Oliverio Grigsby MD IMG XR CHEST F inal Result * Troponin (11/16/2024 11:02 AM EDT) Troponin-T, HS Gen5 <6 0 - 9 ng/L [facility] Blood 11/16/2024 11:0 2 AM EDT 11/16/2024 11:05 AM EDT Oliverio Grigsby MD LAB BLOOD ORDERAB LES Final Result [address] [address] * LFTs (hepatic panel) (11/16/2024 10:10 AM EDT) ALKALINE PHOSPHATASE 80 39 - 117 U/L [facility] TOTAL BILIRUBIN 0.5 0.0 - 1.2 mg/dL [facility] DIRECT BILIRUBIN <0.1 0.0 - 0.2 mg/dL [facility] Bilirubin (Indirect) NOT CALCULATED 0 - 1.5 mg/dL [facility] AST 19 0 - 37 U/L [facility] ALT 11 0 - 40 U/L [facility] TOTAL PROTEIN 7.6 6.5 - 8.0 g/dL [facility] ALBUMIN 4.1 3.9 - 4.8 g/dL [facility] GLOBULIN 3.5 1 - 4.8 g/dL [facility] A/G Ratio 1.17 1.00 - 4.80 RATIO [facility] 11/16/2024 10:1 0 AM EDT 11/16/2024 10:21 AM EDT Oliverio Grigsby MD LAB BLOOD ORDERAB LES Final Result Performing Organization Address [facility]/ZIP Co de Phone Number [address] [phone] * Lipase (11/16/2024 10:10 AM EDT) LIPASE 27 16 - 63 U/L [facility] 11/16/2024 10:1 0 AM EDT 11/16/2024 10:21 AM EDT Oliverio Grigsby MD LAB BLOOD ORDERAB LES Final Result Performing Organization Address [facility] Co de Phone Number [address] [phone] * Magnesium (11/16/2024 10:10 AM EDT) MAGNESIUM 2.0 1.6 - 2.6 mg/dL [facility] 11/16/2024 10:1 0 AM EDT 11/16/2024 10:21 AM EDT Oliverio Grigsby MD LAB BLOOD ORDERAB LES Final Result Performing Organization Address [facility] de Phone Number [address] [address] * HCG (tumor marker) (11/16/2024 10:10 AM EDT) HCG BETA 0.6 mIU/mL [facility] Comment: Interpretation: FEMALE: Negative: Less than or equal to 1 mIU/mL. 4 Weeks Post Conception: 9.5 - 750 mIU/mL. 12 Weeks Post Conception: [address] - 280890 mIU/mL. Test Methodology Lucinda [id number] Patient results determined by assays using different manufacturers or methods may not be comparable. 11/16/2024 10:1 0 AM EDT 11/16/2024 10:21 AM EDT us Oliverio Grigsby MD LAB BLOOD ORDERAB LES Final Result [address] [address] * Troponin (11/16/2024 10:10 AM EDT) Troponin-T, HS Gen5 <6 0 - 9 ng/L [facility] Blood 11/16/2024 10:1 0 AM EDT 11/16/2024 10:21 AM EDT us Oliverio Grigsby MD LAB BLOOD ORDERAB LES Final Result Performing Organization Address [facility] Co de Phone Number [address] [phone] * Basic metabolic panel (11/16/2024 10:10 AM EDT) SODIUM 139 133 - 146 mmol/L [facility] CHLORIDE 105 96 - 108 mmol/L [facility] POTASSIUM 4.0 3.3 - 5.1 mmol/L [facility] CO2 22 21 - 35 mmol/L [facility] BUN 13 6 - 19 mg/dL [facility] CREATININE 0.70 0.5 - 1.5 mg/dL [facility] GLUCOSE 88 70 - 99 mg/dL [facility] CALCIUM 9.5 8.4 - 10.3 mg/dL [facility] EGFR 108 >59 mL/min/1.7 3m2 [facility] Comment:Estimated glomerular filtration rate calculated using the CKD-EPI refit equation. ANION GAP 16 10 - 20 mmol/L [facility] Blood 11/16/2024 10:1 0 AM EDT 11/16/2024 10:21 AM EDT us Oliverio Grigsby MD LAB BLOOD ORDERAB LES Final Result [address] [address] [place] [address] * CBC and differential (11/16/2024 10:10 AM EDT) WBC 9.90 4.00 - 11.00 K/uL [facility] RBC 4.30 4.00 - 5.20 M/uL [facility] HGB 12.6 12.0 - 16.0 g/dL [facility] HCT 37.9 36.0 - 46.0 % [facility] PLT 268 150 - 450 K/uL [facility] MCV 88.1 80.0 - 100.0 fL [facility] MCH 29.3 27.0 - 31.0 pg [facility] MCHC 33.2 32.0 - 36.0 g/dL [facility] RDW 13.0 11.5 - 14.5 % [facility] MPV 9.9 8.4 - 12.0 fL [facility] NRBC 0.00 0.00 /100 WBCs [facility] ABSOLUTE NRBC 0.00 0.00 K/uL [facility] DIFF METHOD Auto [facility] NEUTS 70.1 48.0 - 76.0 % [facility] LYMPHS 19.6 18.0 - 41.0 % [facility] MONOS 6.5 4.0 - 11.0 % [facility] EOS 2.9 0.0 - 5.0 % [facility] BASOS 0.5 0.0 - 1.5 % [facility] Granulocytes, immature (%) 0.4 0.0 - 0.9 % [facility] ABSOLUTE NEUTS 6.94 1.92 - 7.60 K/uL [facility] ABSOLUTE LYMPHS 1.94 0.72 - 4.10 K/uL [facility] ABSOLUTE MONOS 0.64 0.16 - 1.10 K/uL [facility] ABSOLUTE EOS 0.29 0.00 - 0.50 K/uL [facility] ABSOLUTE BASOS 0.05 0.00 - 0.15 K/uL [facility] Granulocytes, immature 0.04 0.00 - 0.09 K/uL [facility] Blood 11/16/2024 10:1 0 AM EDT 11/16/2024 10:21 AM EDT us Oliverio Grigsby MD LAB BLOOD ORDERAB LES Final Result [facility] [address] [place] [address] * ECG 12-LEAD (11/16/2024 9:59 AM EDT) Ventricular Rate EKG/MIN 80 BPM [facility] Atrial Rate 80 BPM [facility] AL Interval 134 ms [facility] QRS Duration 84 ms [facility] QT Interval 420 ms [facility] QTC Interval 484 ms [facility] P [place] 73 degrees [facility] R Wave [place] 64 degrees [facility] T Wave [place] 59 degrees [facility] 11/16/2024 9:59 AM EDT 11/17/2024 10:45 AM EDT Narrative [facility] - 11/17/2024 10:45 AM EDT Normal sinus rhythm Prolonged QT Abnormal ECG When compared with ECG of 10-Mar-2021 21:29, No significant change was found Confirmed by Rene Kerns ([id number]) on 11/17/2024 10:45:20 AM us Oliverio Grigsby MD ECG ORDERABLES F inal Result Performing Organization Address City/[facility]/ZIP Co de Phone Number [email or web address] documented in this encounter Visit Diagnoses Diagnosis Palpitations- Primary Chest pain, unspecified type Generalized abdominal pain Abdominal pain, generalized documented in this encounter Administered Medications Inactive Administered Medications - up to 3 most recent administrations Medication Order MAR Action Action Date Dose Rate Site famotidine (PF) (PEPCID) injection 20 mg 20 mg, Intravenous, Once, On Sat11/16/24 at 1115, For 1 dose, May be given undiluted IV push over 2 minutes. May be given undiluted IV push over 2 minutes. Given 11/16/2024 11:43 AM EDT 20 mg iohexoL (OMNIPAQUE-350) 350 mg iodine/mL solution 75 mL 75 mL, Intravenous, Once as needed, pre procedure/treatment, Starting on Sat11/16/24 at 1217, For 1 dose, Procedural Contrast/Med Active Now, Each mL contains 755 mg of iohexol equivalent to 350 mg of organic iodine. Given 11/16/2024 12:17 PM EDT 75 mL sodium chloride (NS) 0.9 % syringe flush 3 mL 3 mL, Intravenous, As needed, line care, Starting on Sat11/16/24 at 1001, Per Institutional IV Line Care Policy. documented in this encounter Active and Recently Administered Medications Times are shown in EDT. Scheduled Medication Order 11/14/2024 11/15/2024 11/16/2024 famotidine (PF) (PEPCID) injection 20 mg (COMPLETED) 20 mg, Intravenous, Once, On Sat11/16/24 at 1115, For 1 dose, May be given undiluted IV push over 2 minutes. May be given undiluted IV push over 2 minutes. 1143 (Given - Provid er: Letty Lara RN) PRN Medication Order 11/14/2024 11/15/2024 11/16/2024 iohexoL (OMNIPAQUE-350) 350 mg iodine/mL solution 75 mL (COMPLETED) 75 mL, Intravenous, Once as needed, pre procedure/treatment, Starting on Sat11/16/24 at 1217, For 1 dose, Procedural Contrast/Med Active Now, Each mL contains 755 mg of iohexol equivalent to 350 mg of organic iodine. 1217 (Given - Provid er: Montserrat Reid) sodium chloride (NS) 0.9 % syringe flush 3 mL 3 mL, Intravenous, As needed, line care, Starting on Sat11/16/24 at 1001, Per Institutional IV Line Care Policy. documented in this encounter Care Teams Cleaning Team Member Relationship Specialty Start Date End Date Fiona Hagen MD [address] [place] [address] PCP - General Internal Medicine 03/10/21 documented as of this encounter Additional Source Comments The information contained in this document represents components of the legal health record. It is not the complete legal health record.[facility]
--- OUTSIDE RECORDS SUMMARY | 2024-11-18 20:10 | XMS_ITS | Encounter Summary ---
Author Organization [facility] Address [address] [facility] [place] [address] [place] [phone] Phone Care Team Providers Care Signal Technician Name Role Phone Fiona Hagen MD Primary Care Provid er Reason for Visit * Reason Comments Rash Encounter Details Date Type Department Care Team ([facility] st Contact Info) Description 11/18/2024 8:10 PM EDT - 11/18/2024 11:11 PM EDT Emergency [facility] [address] [place] [address] Discharge Disposition: Home or Self Care Social [...] as food, clothing, or medical care? No 11/18/2024 In the past 12 months have y ou been in a relationship with a person who hurts, threatens, or tries to control you? No 11/18/2024 Are you denied basic needs s uch as food, clothing, or medical care? No 11/18/2024 In the past 12 months have y ou been in a relationship with a person who hurts, threatens, or tries to control you? No 11/18/2024 Comments Unknown Sex and Gender Information Value Date Recorded Sex Assigned at Female 03/10/2021 9:50 PM EST Legal Sex Female 9:28 PM EST Gender Identity Female 03/10/2021 9:50 PM EST Sexual Orientation Straight 03/10/2021 9: 50 PM EST documented as of this encounter Last Filed Vital Signs Vital Sign Reading Time Taken Comments Blood Pressure 122/79 11/18/2024 11:09 PM EDT Pulse 81 11/18/2024 11:09 PM EDT Temperature 36.7 C (98.1 F) 11/18/2024 11:09 PM EDT Respiratory Rate 18 11/18/2024 11:09 PM EDT Oxygen Saturation 98% 11/18/2024 11:09 PM EDT Inhaled Oxygen Concentration - - Weight 79.2 kg (174 lb 8 oz) 11/18/2024 7:54 PM EDT Height 170.2 cm (5' 7 ) 11/18/2024 7:54 PM EDT Body Mass Index 27.33 11/18/2024 7:54 PM EDT documented in this encounter Functional Status * Calculated C-SSRS Risk Score (Lifetime/Recent) Answer Date of Assessment Author No Risk Indicated 11/18/2024 8:02 PM EDT Roxanne Henry RN * Servando Suicide Severity Rating Scale (Screener/Recent Self-Report) Question Answer Date of Assessment Author 1. Wish to be (Past 1 Month) No 025 8:02 PM EDT Roxanne Henry RN 2. Non-Specific Active Suici luciano Thoughts (Past 1 Month) No 11/18/2024 8:02 PM EDT Roxanne Henry RN 6. Suicidal Behavior (Lifetime) No 8:02 PM EDT Roxanne Henry RN documented as of this encounter Discharge Instructions * Attachments The following attachments cannot be sent through Care Everywhere. * Allergic Reaction (Serbian) documented in this encounter Medications at Time of Discharge morphine (MSIR) 15 MG tablet Take 0.5 tablets (7.5 mg total) by mouth every 4 (four) hours as needed for pain (specific location in comments). Partial fill ok 5 tablet 03/11/2021 predniSONE (DELTASONE) 20 mg tablet (To-Go) Take 40 mg (2 tablets) by mouth once daily for 4 days. 11/18/2024 11/22/2024 documented as of this encounter ED Notes * Racheal Argueta RN - 11/18/2024 11:10 PM EDT ED Discharge Nursing Note Pt d/c instructions reviewed with no questions or concerns, pt in NAD, breathing even and unlabored, speaking in clear full sentences, ambulates with steady gait * Roxanne Henry RN - 11/18/2024 7:59 PM EDT Pt reports full body rash that is very itchy. Pt states she noticed the rash yesterday and took benadryl without relief. Pt denies coming in contact with know allergins. Fine raised rash noted. Pt reports working at the [employer] and this is her second week of work there. Pt also reports a recent visit to the ED for palpitations. * BartRene ozuna PA-C - 11/18/2024 7:37 PM EDT Chief Complaint Chief Complaint Patient presents with Rash History of Present Illness The patient, Angela Diaz,is a 44 y.o. female who presents for evaluation of Rash The patient presents with a pruritic rash diffuse over the body beginning yesterday, she took Benadryl couple of times without much relief. She has allergies to adhesive, aspirin, shellfish, and penicillin but other than the fact that she was here a few days ago and had an EKG and was on the monitor, exposed to the adhesives from the stickers had no other known exposure. She did recently start working at [employer] a couple of weeks ago, unsure if she was exposed to anything there. She reports no nausea or vomiting, no shortness of breath, just feeling very itchy. Unless otherwise specified, I have reviewed and [...] Every 4 hours PRN, Partial fill ok predniSONE (DELTASONE) 20 mg tablet (To-Go) Take 40 mg (2 tablets) by mouth once daily for 4 days. Allergies Allergies Allergen Reactions Adhesive From ECG leads Aspirin Penicillins Shellfish Containing Products Social and Family History Social History Tobacco Use Smoking status: Not on file Smokeless tobacco: Not on file Substance Use Topics Alcohol use: Not on file Social History Substance and Sexual Activity Drug Use Not on file No family history on file. Physical Exam Vital Signs: ED Triage Vitals [11/18/241953] Encounter Vitals Group BP 127/64 Systolic BP Percentile Diastolic BP Percentile Heart Rate 74 Respiratory Rate 18 Temperature 36.5 ??C (97.7 ??F) Temp src SpO2 99 % Weight 174 lb 8 oz Height 5' 7 Physical Exam Constitutional: General: She is not in acute distress. Appearance: She is well-developed. Neck: Trachea: No tracheal deviation. Cardiovascular: Rate and Rhythm: Normal rate. Pulmonary: Effort: Pulmonary effort is normal. No respiratory distress. Breath sounds: Normal breath sounds. Musculoskeletal: General: No deformity. Normal range of motion. Cervical back: Normal range of motion. Skin: General: Skin is warm and dry. Findings: Rash (Diffuse urticaria to the trunk and extremities, and some to the face) present. Neurological: Mental Status: She is alert and oriented to person, place, and time. Laboratory Testing No results found for this visit on 11/18/24. Radiology Testing No orders to display ED Medication from 11/18/2024 1937 to 11/19/2024149 Date/Time Order Dose Route Action Action by Comments 11/18/20242303 EDT predniSONE (DELTASONE) tablet (To-Go) 1 kit 1 kit Oral Provider dispensed take home meds Racheal Argueta RN -- 11/18/20242301 EDT cetirizine (ZyrTEC) tablet 10 mg 10 mg Oral Given Racheal Argueta RN -- [facility] Assessment and Plan: Patient evaluated for diffuse urticaria. She is afebrile and hemodynamically stable does not appearin acute distress. On exam she does have pruritic urticaria to the torso, extremities, and face, she is not exhibiting any concerning signs or symptoms for an anaphylactic reaction, her lung sounds are clear bilaterally, there is no swelling noted to the tongue, no nausea or vomiting. Will start the patient on Zyrtec and prednisone and she will have to follow-up with her PCP for follow-up and potentially referral to flight engineer helicopter for assessment. Attestation: Rene Deng PA-C, have seen this patient independently. This is a PA only visit Risks of Complications, Morbidity, or Mortality: Risks: Necessity for prescription medication was discussed. Clinical Impressions as of 11/19/24149 Allergic reaction, initial encounter Clinical Impression Diagnosis Description Comment Final diagnosis Allergic reaction, initial encounter Allergic reaction, initial encounter -- Disposition: Discharge Rene Montanez PA-C 11/19/24150 documented in this encounter Plan of Treatment Not on file documented as of this encounter Visit Diagnoses Diagnosis Allergic reaction, initial encounter- Primary documented in this encounter Administered Medications Inactive Administered Medications - up to 3 most recent administrations Medication Order MAR Action Action Date Dose Rate Site cetirizine (ZyrTEC) tablet 10 mg 10 mg, Oral, Once, On Sat11/18/24 at 2300, For 1 dose Given 11/18/2024 11:02 PM EDT 10 mg predniSONE (DELTASONE) tablet (To-Go) 1 kit 1 kit, Oral, Once, On Sat11/18/24 at 2300, For 1 dose, Take 2 tablets (40 mg) by mouth every 24 hours (once daily) for 4 days. Provider dispensed take home meds 11/18/2024 11:04 PM EDT 1 kit documented in this encounter Active and Recently Administered Medications Times are shown in EDT. Scheduled Medication Order 11/16/2024 11/17/2024 11/18/2024 cetirizine (ZyrTEC) tablet 10 mg (COMPLETED) 10 mg, Oral, Once, On Sat11/18/24 at 2300, For 1 dose 2302 (Given - Provid er: Racheal Argueta RN) predniSONE (DELTASONE) tablet (To-Go) 1 kit (COMPLETED) 1 kit, Oral, Once, On Sat11/18/24 at 2300, For 1 dose, Take 2 tablets (40 mg) by mouth every 24 hours (once daily) for 4 days. 2304 (Provider dispe nsed take home meds - Provider: Racheal Argueta RN) documented in this encounter Care Teams Signal Technician Relationship Specialty Start Date End Date Fiona Hagen MD [address] [place] [address] PCP - General Internal Medicine 03/10/21 documented as of this encounter Additional Source Comments The information contained in this document represents components of the legal health record. It is not the complete legal health record.[facility]
--- NOTE | 2024-11-19 | ECG_ITS ---
Test Reason : CP,ALLERGIC RX Blood Pressure : */* mmHG Vent. Rate : 89 BPM Atrial Rate : 89 BPM P-R Int : 132 ms QRS Dur : 76 ms QT Int : 388 ms P-R-T Axes : 75 64 68 degrees QTcB Int : 472 ms Normal sinus rhythm Normal ECG When compared with ECG of 15-Mar-2024 03:13, No significant change was found Referred By: Generic ED Physician Electronically Signed By: RE ELLIS
[2024-11-19 03:05] VITALS: BP 103/75; PULSE 84; RESP 20; TEMP 36.1; O2SAT 100; BMI 27.2
--- NOTE | 2024-11-19 03:16 | ED_ITS ---
HPI - Allergic Reaction General Chief complaint: Allergic Reaction Stated complaint: CP+ throat pain + reaction from medication Time Seen by Provider: 11/19/24 02:51 Source: patient Mode of arrival: ambulatory Limitations: language barrier ([employer] services utilized.) History of Present Illness ED Provider: Abram CASTAÑEDA HPI narrative: The patient is a 44-year-old female presenting to the ED reporting she started working at a local [employer] 2 weeks ago, starting on Saturday she began experiencing a diffuse urticarial pruritic rash. Patient reports she attempted Benadryl, Benadryl gel, and Zyrtec without significant relief. The patient reports a known history of aspirin and seafood allergy, denies any recent exposure to either aspirin or seafood. The patient reports she went to [facility] for the symptoms today and was given prednisone. Patient reports taking the 40 mg of prednisone without relief of symptoms and she presents to this ED for re-evaluation. The patient denies associated dysphagia, cough, wheeze, stridor, voice changes (patient reports raspy voice at baseline), tongue/lip swelling, dizziness, nausea, vomiting, or abdominal pain. The p atient denies any recent outdoor work, denies new cosmetics, lotions, detergents, foods, or other known allergens. Related Data Home Medications ?Medication ?Instructions ?Recorded ?Confirmed meclizine 25 mg tablet 25 mg PO DAILY 01/28/2008/19 bisacodyl 5 mg tablet,delayed 10 mg PO BEDTIME 3 09/11/22 release (Laxative (bisacodyl)) buspirone 5 mg tablet 5 mg PO TID 08/13/22 3 fluoxetine 20 mg capsule 20 mg PO DAILY 08/13/2208/19 lorazepam 0.5 mg tablet 0.5 mg PO BID PRN panic kenny ck 08/13/22 09/11/22 Previous Rx's ?Medication ?Instructions ?Recorded gabapentin 300 mg capsule 300 mg PO BEDTIME 90 days #9 0 caps 03/13/21 hydrocortisone 2.5 % topical cream 1 appl OK BID PRN h emorrhoids #30 09/21/21 with perineal applicator grams (Proctosol HC) linaclotide 72 mcg capsule 72 mcg PO QAM #30 caps 03/11 (Linzess) hydrocortisone 1 % topical cream 1 appl topical TID OK N skin 01/24/22 (Anti-Itch (hydrocortisone)) irritation 30 days #28.4 grams clotrimazole-betamethasone 1 1 appl topical BID 2 week s #45 04/12/22 %-0.05 % topical cream grams methocarbamol 750 mg tablet 750 mg PO BID PRN for musc le spasm 06/18/22 30 days #60 tabs pantoprazole 40 mg tablet,delayed 40 mg PO DAILY 90 da ys #90 tabs 09/11/22 release bupropion HCl 150 mg 24 hr tablet, 150 mg PO QAM 90 da ys #90 tabs 10/12/22 extended release oxycodone 5 mg tablet 5 mg PO Q6H PRN pain #15 tab s 03/15/24 famotidine 20 mg tablet (Pepcid) 20 mg PO BID 5 days # 10 tabs 11/19/24 prednisone 10 mg tablet 10 mg PO DIRECTED #42 tab s 11/19/24 Allergies Allergy/AdvReac Type Severity Reaction Status Date / Time aspirin (ASPIRIN) Allergy Severe Rash Verified 11/19/24 03:09 penicillin V Allergy Severe rash Verified 11/19/24 03:09 shrimp Allergy Severe anaphlaxysi Verified 11/19/24 03:09 s tape of ekg trace Allergy Severe rash Uncoded 09/11/22 16:46 Review of Systems Review of Systems: Yes all other systems are reviewed and are negative PMFSH Past Medical History Medical History Precordial chest pain Dizziness Ear discomfort Diarrhea Enterocolitis Sinusitis Surgical History H/O colonoscopy History of esophagogastroduodenoscopy (EGD) Family History Family History Father Cancer Mother Diabetes Maternal Grandmother Cancer Colon cancer Paternal Grandmother Cancer Uterine cancer Social History Social History Housing: Apartment Alcohol intake: former Patient Tobacco Use Status: Never used Tobacco Smoked in Last 30 Days: No e-Cigarette/Vaping Use: Never Used Second Hand Smoke Exposure: No Use of substances other than those prescribed or required for medical reasons: No Advance Directives: No Advance Directives Information Provided: Yes Do you have a plan to hurt others: No Plan service: No Current occupational status: unemployed Cognitive needs: No Hearing needs: No Vision needs: No Physical Exam ED Vital Signs: Vital Signs - 24 hr 11/19/24 03:05 Temperature 97.0 F Pulse Rate 84 Respiratory Rate 20 Blood Pressure 103/75 Pulse Oximetry 100 Oxygen Delivery Method Room Air BMI result Body Mass Index 27.2 CONSTITUTIONAL: The patient appears non-toxic, well nourished and in no acute distress. Vital signs as documented. HEAD: Atraumatic, normocephalic. EYES: EOMs grossly intact, pupils equal, conjunctiva clear, no exudate. ENT: Nares patent, no discharge. Airway patent, no audible stridor, visible mucosa is pink and moist without noted lesions. Posterior pharynx demonstrates midline nonedematous uvula, no peritonsillar or tonsillar swelling. No lip or tongue swelling, no visible pooling secretions. NECK: Trachea is midline, no obvious masses or gross abnormalities. CHEST: Symmetric movement, normal appearance. LUNGS: LS present and CTAB, no w/r/r. Non-labored work of breathing. CARDIAC: Regular Rhythm, S1/S2 appreciated, no murmurs, rubs or gallops. ABDOMEN: Abdomen soft and non-tender x4 quadrants, no palpable masses or organomegaly. : Deferred. EXTREMITIES: Normal tone, moves all extremities spontaneously without reported pain. No obvious acute injury or deformity noted. NEURO: Alert and oriented x3, CN II-XII appear grossly intact. Cerebellar Functioning grossly intact. No obvious sensory or motor deficits. Speech clear and appropriate. PSYCH: normal affect, appropriate eye contact, fluid speech, with appropriate response to questioning. No reported suicidality or homicidality. SKIN: Warm, dry, color appropriate, normal turgor. There is a diffuse urticarial rash noted primarily to the trunk/back, with the extension onto the bilateral upper extremities. Mild associated excoriation. No other rashes noted. Medications Administered Discontinued Medications Generic Name Dose Route Start Last Admin Trade Name Freq PRN Reason Stop Dose Admin Diphenhydramine HCl 50 mg 11/19/24 03:03 11/19/24 03:19 Diphenhydramine Hcl 50 Mg/Ml Vial IVPUSH 11/19/24 03:04 50 mg ONCE ONE Administration Famotidine 20 mg 11/19/24 03:03 11/19/24 03:19 Famotidine/Pf 20 Mg/2 Ml Vial IVPUSH 11/19/24 03:04 20 mg ONCE ONE Administration Methylprednisolone Sodium Succinate 125 mg 11/19/24 03:03 11/19/24 03:14 Methylprednisolone Sod Succ 125 Mg/2 Ml Vial IVPUSH 11/19/24 03:04 125 mg ONCE ONE Administration Medical Decision Making Medical Decision Making MDM Narrative: 3:16 AM 11/19/2024 (Vinay CASTAÑEDA): The patient is a 44-year-old female presenting to the ED reporting she started working at a local [employer] shop 2 weeks ago, starting on Saturday she began experiencing a diffuse urticarial pruritic rash. Patient reports she attempted Benadryl, Benadryl gel, and Zyrtec without significant relief. The patient reports a known history of aspirin and seafood allergy, denies any recent exposure to either aspirin or seafood. The patient reports she went to [facility] for the symptoms today and was given prednisone. Patient reports taking the 40 mg of prednisone without relief of symptoms and she presents to this ED for re-evaluation. The patient denies associated dysphagia, cough, wheeze, stridor, voice changes (patient reports raspy voice at baseline), tongue/lip swelling, dizziness, nausea, vomiting, or abdominal pain. The patient denies any recent outdoor work, denies new cosmetics, lotions, detergents, foods, or other known allergens. On exam the patient has a diffuse urticarial rash with mild excoriation. The patient's airway demonstrates no posterior pharyngeal swelling, tongue swelling, or lip swelling. Breath sounds are clear bilaterally, no wheezing, no stridor. There is no indication for epinephrine administration at this time. The patient will be treated with Solu-Medrol, Benadryl, and Pepcid. Pending improvement in symptoms the patient will be discharged with a new prescription for a 12 day prednisone taper as opposed to the 40 mg 4 day prednisone burst prescribed by [facility]. 4:54 AM 11/19/2024 (Vinay CASTAÑEDA): Patient reports subjective improvement in pruritus/rash symptoms, continues to deny any shortness of breath, dysphagia, wheeze, or other acute complaint. The patient will be discharged with a 12 day prednisone taper as described above. We will also provide a work note identifying patient may be suffering from an allergic reaction to a product at work and needs consideration for reassignment. Admission/Observation Consideration of admission/observation: Escalation of care including admission/observation considered Independent Interpretation I performed an independent interpretation of an: EKG (EKG shows sinus rhythm with a rate of 89, no evidence of acute ischemia, no ST elevation, no ectopy. QTC 472. Compared to previous on 03/15/2024 there are no significant morphology changes. ) Discharge Plan Discharge Clinical Impression: Urticaria Patient Disposition: Home, Self-Care Instructions: Urticaria (ED) Additional Instructions: Susanne por elegir el Departamento de Urgencias del [facility] M?dico Blackey para collins atenci?n m?dica hoy. Collins presentaci?n de hoy es consistente con mayco erupci?n cut?cherri de tipo reacci?n al?rgica. Afortunadamente, collins examen no muestra evidencia de inflamaci?n de las v?as respiratorias. Afortunadamente, collins erupci?n cut?cherri mejor? con las intervenciones realizadas en urgencias. En mirian momento, no hay indicaci?n de ingreso hospitalario ni de observaci?n continua en urgencias, y es seguro darle de sherry. [place] la dosis de prednisona seg?n lo prescrito kade los pr?ximos 12 d?as. [place] Pepcid dos veces al d?a kade los pr?ximos 5 d?as. Tambi?n puede evan Benadryl adicional seg?n sea necesario para s?ntomas adicionales. Tenga en cuenta que Benadryl puede causar somnolencia; no se le permite conducir, operar maquinaria pesada ni ser el ?mala cuidador de ni?os mientras est? tomando mirian medicamento. Consulte con collins m?dico de cabecera para mayco reevaluaci?n, un manejo adicional de hermelinda s?ntomas y atenci?n preventiva continua. Si no tiene un m?dico de cabecera, llame a [facility] al [phone] para asignarle neville nuevo. Mientras espera la asignaci?n de collins nuevo m?dico de cabecera, puede llamar a nuestra Cl?celeste de Atenci?n Sin Maritza Previa al [phone] para necesidades que no elie de emergencia. Regrese a urgencias si presenta un cambio repentino o grave en hermelinda s?ntomas, fiebre superior a 38 ?C que no mejora con Tylenol o ibuprofeno, v?mitos recurrentes o cualquier otro s?ntoma o inquietud nuevo o que empeore. Thank you for choosing [facility]'s Emergency Department for your care today. Your presentation today is consistent with an allergic reaction type rash. Thankfully your exam shows no evidence of swelling of your airway. Thankfully your rash improved with the interventions performed in the ED. At this time there is no indication for admission to the hospital or continued ED observation, and it is safe to discharge you home. Please take the prednisone taper as prescribed for the next 12 days. Please take Pepcid twice a day for the next 5 days. You may also take additional Benadryl as needed for additional symptoms. Please understand that Benadryl can make you drowsy, you are not allowed to drive, operate heavy machinery, or be the sole care provider for children while taking this medication. Please follow up with your primary care physician for re-evaluation, additional management of your symptoms, and continued preventative care. If you do not have a primary care physician, please call the [facility] at [phone] to establish a new primary care physician. While waiting to establish your new primary care physician, you can call our Walk-in Care Clinic at [phone] for non-emergency needs. Please return to the emergency department if you develop a severe or sudden change in your symptoms, a fever over 100.4 that does not improve with Tylenol or Ibuprofen, recurrent vomiting, or any other new or worsening symptoms or concerns. Prescriptions: New prednisone 10 mg tablet 10 mg PO DIRECTED Qty: 42 0RF Rx Instructions: Take 60 mg (6 tabs) daily for 2 days. Then take 50 mg (5 tabs) daily for 2 days. Then take 40 mg (4 tabs) daily for 2 days. Then take 30 mg (3 tabs) daily for 2 days. Then take 20 mg (2 tabs) daily for 2 days. Then take 10 mg (1 tab) daily for 2 days. Then stop. famotidine [Pepcid] 20 mg tablet 20 mg PO BID 5 Days Qty: 10 0RF No Action gabapentin 300 mg capsule 300 mg PO BEDTIME 90 Days Qty: 90 1RF hydrocortisone [Proctosol HC] 2.5 % cream with perineal applicator 1 appl OK BID PRN (Reason: hemorrhoids) Qty: 30 0RF bupropion HCl 150 mg tablet extended release 24 hr 150 mg PO QAM 90 Days Qty: 90 0RF oxycodone 5 mg tablet 5 mg PO Q6H PRN (Reason: pain) Qty: 15 0RF Rx Instructions: partial filing upon pt request; Partial Fill upon patient request. meclizine 25 mg tablet 25 mg PO DAILY hydrocortisone [Anti-Itch (HC)] 1 % cream 1 appl topical TID PRN (Reason: skin irritation) 30 Days Qty: 28.4 1RF pantoprazole 40 mg tablet,delayed release (DR/EC) 40 mg PO DAILY 90 Days Qty: 90 1RF bisacodyl [Laxative (bisacodyl)] 5 mg tablet,delayed release (DR/EC) 10 mg PO BEDTIME clotrimazole-betamethasone 1-0.05 % cream 1 appl topical BID 14 Days Qty: 45 1RF Rx Instructions: Use externally only up to twice a day for maximum of 2 weeks Linzess 72 mcg capsule 72 mcg PO QAM Qty: 30 6RF methocarbamol 750 mg tablet 750 mg PO BID PRN (Reason: for muscle spasm) 30 Days Qty: 60 2RF buspirone 5 mg tablet 5 mg PO TID fluoxetine 20 mg capsule 20 mg PO DAILY lorazepam 0.5 mg tablet 0.5 mg PO BID PRN (Reason: panic attack) Referrals: Fiona Hagen MD [Primary Care Provider, Internal Medicine] Clinical Impression: Urticaria Stand Alone Forms: Work/School Release Print Language: Chinese
--- NOTE | 2024-11-19 03:20 | PC.NURSE ---
Iv placed medicated per mar.
--- OUTSIDE RECORDS SUMMARY | 2024-11-19 04:21 | XMS_ITS | Encounter Summary ---
Author Organization [facility] Address [address] [place] [id number] Phone Care Team Providers Care Dramatic Director Name Role Phone Fiona Hagen MD Primary Care Provid er Encounter Details Date Type Department Care Team (Late st Contact Info) Description 11/16/2024 Procedure Pass [facility], Ct Scan - [address] [id number] Social History Tobacco Use Types Packs/Day Years [...] PM EST documented as of this encounter Functional Status * Calculated C-SSRS Risk Score (Lifetime/Recent) Answer Date of Assessment Author No Risk Indicated 11/18/2024 8:02 PM Roxanne Guerra RN * [place] Suicide Severity Rating Scale (Screener/Recent Self-Report) Question Answer Date of Assessment Author 1. Wish to be (Past 1 Month) No 025 8:02 PM Roxanne Guerra RN 2. Non-Specific Active Suici luciano Thoughts (Past 1 Month) No 11/18/2024 8:02 PM Roxanne Guerra RN 6. Suicidal Behavior (Lifetime) No 8:02 PM Roxanne Guerra RN documented as of this encounter Plan of Treatment Not on file documented as of this encounter Visit Diagnoses Not on filedocumented in this encounter Care Teams Dramatic Director Relationship Specialty Start Date End Date Fiona Hagen MD [address] [place] [id number] PCP - General Internal Medicine 03/10/21 documented as of this encounter Additional Source Comments The information contained in this document represents components of the legal health record. It is not the complete legal health record.[facility]
--- OUTSIDE RECORDS SUMMARY | 2024-11-19 04:21 | XMS_ITS | Clinical Summary ---
Author Organization [facility] Address [address] [place] [address] [place] [phone] Phone Care Team Providers Care Associate Research Scientist Name Role Phone Fiona Hagen MD Primary Care Provid er Allergies Active Allergy Reactions Criticality Noted Date Comments Adhesive 03/10/2021 From ECG leads Aspirin 03/10/2021 Penicillins 03/10/2021 Shellfish Containing Products 2024 Medications morphine (MSIR) 15 MG tablet Take 0.5 tablets (7.5 mg total) by mouth every 4 (four) hours as needed for pain (specific location in comments). Partial fill ok 5 tablet 03/11/2021 Active predniSONE (DELTASONE) 20 mg tablet (To-Go) Take 40 mg (2 tablets) by mouth once daily for 4 days. 11/18/2024 11/23/19 Active Encounters Date Type Department Care Team Description 11/18/2024 8:10 PM EDT - 11/18/2024 11:11 PM EDT Emergency [facility] [address] [place] [address] Discharge Disposition: Home or Self Care 11/16/2024 10:03 AM EDT - 11/16/2024 4:37 PM EDT Emergency [facility] [address] [place] [address] Oliverio Grigsby MD Discharge Disposition: Home or Self Care 11/16/2024 Procedure Pass [facility] [address] [place] [address] from Last 3 Months Social History Tobacco Use Types Packs/Day Years [...] Orientation Straight 03/10/2021 9: 50 PM EST Last Filed Vital Signs Vital Sign Reading [...] Mass Index 27.33 11/18/2024 7:54 PM EDT Plan of Treatment Health Maintenance Due Date Last Done Comments Adult Td,Tdap Booster 1978 LIPID PANEL 1978 DEPRESSION SCREENING 1990 SMOKING Hx and SMOKELESS TOB ACCO SCREENING 06/15/1991 HEPATITIS C SCREENING 1996 HIV ONE-TIME SCREENING (18-6 5 YEARS) 1996 PAP SMEAR 06/15/1999 MAMMOGRAM 2018 COLOGUARD 06/15/2023 COLONOSCOPY 06/15/2023 COLORECTAL CANCER SCREENING 06/15/2023 FIT TEST 06/15/2023 FOBT 06/15/2023 SIGMOIDOSCOPY 06/15/2023 VIRTUAL COLONOSCOPY 06/15/2023 INFLUENZA VACCINE (#1) 2024 COVID-19 VACCINE (1 - 2023-2 5 season) 2024 SCREENING FOR DIABETES 11/17/2027 11/16/2024 HEPATITIS A VACCINES Aged Out No long er eligible based on patient's age to complete this topic HIB VACCINES Aged Out No longer eligi ble based on patient's age to complete this topic MENINGOCOCCAL VACCINES (ACWY) Aged Out No longer eligible based on patient's age to complete this topic MENINGOCOCCAL VACCINES (B) Aged Out N o longer eligible based on patient's age to complete this topic PNEUMOCOCCAL VACCINES (0-49 years) Aged Out No longer eligible based on patient's age to complete this topic Medical Devices Not on file Procedures Procedure Name Priority Date/Time Associated Diagnosis Comments CT ABDOMEN/PELVIS WITH CONTRAST Routine 11/16/2024 12:17 PM EDT XR CHEST PORTABLE Routine 11/16/2024 11: 38 AM EDT TROPONIN STAT 11/16/2024 11:02 AM EDT LFTS (HEPATIC PANEL) Routine 11/16/2024 10:10 AM EDT LIPASE Routine 11/16/2024 10:10 AM EDT MAGNESIUM Routine 11/16/2024 10:10 AM EDT HCG (TUMOR MARKER) Routine 11/16/2024 10 :10 AM EDT TROPONIN STAT 11/16/2024 10:10 AM EDT BASIC METABOLIC PANEL STAT 11/16/2024 10:10 AM EDT CBC AND DIFFERENTIAL STAT 11/16/2024 10:10 AM EDT ECG 12-LEAD STAT 11/16/2024 9:59 AM EDT from Last 3 Months Results * CT ABDOMEN/PELVIS WITH CONTRAST (11/16/2024 [...] clinician's provided indication for this examination in [facility]:Abdominal pain, acute. TECHNIQUE: Multidetector-row CT of the [...] the report originally createdby Sid Guerrero. Oliverio Grigsby MD IMG CT ABD/PELVIS Final Result * XR Chest Portable (11/16/2024 11:38 AM EDT) Anatomical Region Laterality Modality Chest Computed Radiogr aphy 11/16/2024 12:0 1 PM EDT Impressions 11/16/2024 12:01 PM EDT No acute abnormality. Narrative 11/16/2024 12:01 PM EDT XR CHEST PORTABLE Referring clinician's provided indication for this examination in [facility]: Pain COMPARISON: XR CHEST PORTABLE FINDINGS: Devices/Tubes/Lines: None. Lungs: No focal consolidation or pulmonary edema. Pleura: No pleural effusion or pneumothorax. Heart/Mediastinum: Normal heart and mediastinum. Bones/Soft Tissues: No significant abnormality. Procedure Note Alee Cisneros MD - 11/16/2024 XR CHEST PORTABLE Referring clinician's provided indication for this examination in [facility]:Pain COMPARISON: XR CHEST PORTABLE FINDINGS: Devices/Tubes/Lines: None. Lungs: No focal consolidation or pulmonary edema. Pleura: No pleural effusion or pneumothorax. Heart/Mediastinum: Normal heart and mediastinum. Bones/Soft Tissues: No significant abnormality. IMPRESSION: No acute abnormality. Oliverio Grigsby MD IMG XR CHEST F inal Result * Troponin (11/16/2024 11:02 AM EDT) Only the most recent of2 resultswithin the time period is included. [facility] Troponin-T, HS Gen5 <6 0 - 9 ng/L [facility] Blood 11/16/2024 11:0 2 AM EDT 11/16/2024 11:05 AM EDT Oliverio Grigsby MD LAB BLOOD ORDERAB LES Final Result [address] [address] * LFTs (hepatic panel) (11/16/2024 10:10 AM EDT) [facility] ALKALINE PHOSPHATASE 80 39 - 117 U/L [facility] TOTAL BILIRUBIN 0.5 0.0 - 1.2 mg/dL [facility] DIRECT BILIRUBIN <0.1 0.0 - 0.2 mg/dL [facility] Bilirubin (Indirect) NOT CALCULATED 0 - 1.5 mg/dL [facility] AST 19 0 - 37 U/L [facility] ALT 11 0 - 40 U/L [facility] TOTAL PROTEIN 7.6 6.5 - 8.0 g/dL [facility] ALBUMIN 4.1 3.9 - 4.8 g/dL [facility] GLOBULIN 3.5 1 - 4.8 g/dL [facility] A/G Ratio 1.17 1.00 - 4.80 RATIO [facility] 11/16/2024 10:1 0 AM EDT 11/16/2024 10:21 AM EDT us Oliverio Grigsby MD LAB BLOOD ORDERAB LES Final Result [address] [address] * HCG (tumor marker) (11/16/2024 10:10 AM EDT) [facility] HCG BETA 0.6 mIU/mL [facility] Comment: Interpretation: FEMALE: Negative: Less than or equal to 1 mIU/mL. 4 Weeks Post Conception: 9.5 - 750 mIU/mL. 12 Weeks Post Conception: [id number] - [id number] mIU/mL. Test Methodology [id number] Patient results determined by assays using different manufacturers or methods may not be comparable. 11/16/2024 10:1 0 AM EDT 11/16/2024 10:21 AM EDT us Oliverio Grigsby MD LAB BLOOD ORDERAB LES Final Result [facility] [address] [place] [address] * CBC and differential (11/16/2024 10:10 AM EDT) WBC 9.90 4.00 - 11.00 K/uL [facility] RBC 4.30 4.00 - 5.20 M/uL [facility] HGB 12.6 12.0 - 16.0 g/dL [facility] HCT 37.9 36.0 - 46.0 % [facility] PLT 268 150 - 450 K/uL [facility] MCV 88.1 80.0 - 100.0 fL [facility] MCH 29.3 27.0 - 31.0 pg [facility] MCHC 33.2 32.0 - 36.0 g/dL [facility] RDW 13.0 11.5 - 14.5 % [facility] MPV 9.9 8.4 - 12.0 fL [facility] NRBC 0.00 0.00 /100 WBCs [facility] ABSOLUTE NRBC 0.00 0.00 K/uL [facility] DIFF METHOD Auto [facility] NEUTS 70.1 48.0 - 76.0 % [facility] LYMPHS 19.6 18.0 - 41.0 % [facility] MONOS 6.5 4.0 - 11.0 % [facility] EOS 2.9 0.0 - 5.0 % [facility] BASOS 0.5 0.0 - 1.5 % [facility] Granulocytes, immature (%) 0.4 0.0 - 0.9 % [facility] ABSOLUTE NEUTS 6.94 1.92 - 7.60 K/uL [facility] ABSOLUTE LYMPHS 1.94 0.72 - 4.10 K/uL [facility] ABSOLUTE MONOS 0.64 0.16 - 1.10 K/uL [facility] ABSOLUTE EOS 0.29 0.00 - 0.50 K/uL [facility] ABSOLUTE BASOS 0.05 0.00 - 0.15 K/uL [facility] Granulocytes, immature 0.04 0.00 - 0.09 K/uL [facility] Blood 11/16/2024 10:1 0 AM EDT 11/16/2024 10:21 AM EDT Oliverio Grigsby MD LAB BLOOD ORDERAB LES Final Result Performing Organization Address City/[facility]/ZIP Co de Phone Number [address] [address] * Magnesium (11/16/2024 10:10 AM EDT) MAGNESIUM 2.0 1.6 - 2.6 mg/dL [facility] 11/16/2024 10:1 0 AM EDT 11/16/2024 10:21 AM EDT Oliverio Grigsby MD LAB BLOOD ORDERAB LES Final Result [address] [address] * Lipase (11/16/2024 10:10 AM EDT) LIPASE 27 16 - 63 U/L [facility] 11/16/2024 10:1 0 AM EDT 11/16/2024 10:21 AM EDT Oliverio Grigsby MD LAB BLOOD ORDERAB LES Final Result [address] [place] [address] * Basic metabolic panel (11/16/2024 10:10 AM EDT) SODIUM 139 133 - 146 mmol/L [facility] CHLORIDE 105 96 - 108 mmol/L [facility] POTASSIUM 4.0 3.3 - 5.1 mmol/L [facility] CO2 22 21 - 35 mmol/L [facility] BUN 13 6 - 19 mg/dL [facility] CREATININE 0.70 0.5 - 1.5 mg/dL [facility] GLUCOSE 88 70 - 99 mg/dL [facility] CALCIUM 9.5 8.4 - 10.3 mg/dL [facility] EGFR 108 >59 mL/min/1.7 3m2 [facility] Comment:Estimated glomerular filtration rate calculated using the CKD-EPI refit equation. ANION GAP 16 10 - 20 mmol/L [facility] Blood 11/16/2024 10:1 0 AM EDT 11/16/2024 10:21 AM EDT us Oliverio Grigsby MD LAB BLOOD ORDERAB LES Final Result [address] [address] * ECG 12-LEAD (11/16/2024 9:59 AM EDT) Ventricular Rate EKG/MIN 80 BPM [facility] Atrial Rate 80 BPM [facility] MN Interval 134 ms [facility] QRS Duration 84 ms [facility] QT Interval 420 ms [facility] QTC Interval 484 ms [facility] P [place] 73 degrees [facility] R Wave [place] 64 degrees [facility] T Wave [place] 59 degrees [facility] 11/16/2024 9:59 AM EDT 11/17/2024 10:45 AM EDT Narrative [facility] - 11/17/2024 10:45 AM EDT Normal sinus rhythm Prolonged QT Abnormal ECG When compared with ECG of 10-Mar-2021 21:29, No significant change was found Confirmed by Rene Kerns ([id number]) on 11/17/2024 10:45:20 AM Oliverio Grigsby MD ECG ORDERABLES F inal Result [facility] from Last 3 Months Insurance Tezjeremie [employer] [facility] [place] [address] [facility] [address] [facility] [place] [address] [place] [address] ACO [facility] [place] [facility] A[facility] [place] [facility] Care Teams Associate Research Scientist Relationship Specialty Start Date End Date Fiona Hagen MD [address] [place] [address] PCP - General Internal Medicine 03/10/21 Additional Source Comments The information contained in this document represents components of the legal health record. It is not the complete legal health record.[facility]
--- OUTSIDE RECORDS SUMMARY | 2024-11-19 04:22 | XMS_ITS | Clinical Summary ---
Author Organization [employer] [facility] ity Address [address] [place] [id number] Care Team Providers Care Grinder Machine Setter Name Role Phone Eduardo Hernandez MD Primary Care Provider Surgical History Surgery Date Site/Laterality Comments OTHER SURGICAL HISTORY PROCEDURE: DENIES PREVIOUS SURGERY Medical History Medical History Date Comments Herniation of cervical inter vertebral disc with radiculopathy DX:Herniation of cervical intervertebral disc with radiculopathy Chronic low back pain 09/24/2016 DX:Chronic low back pain; COMMENT: Work injury 2013 Tinea pedis 09/24/2016 DX:Tinea pedis Esophageal reflux 09/24/2016 DX:Esophageal reflux Anxiety 12/25/2016 DX:Anxiety; COMM ENT: F/u [facility] Family History Medical History Relation Name [...] drink = 0.6 oz pur e alcohol) Comments Unknown Sex and Gender Information Value Date Recorded Sex Assigned at Not on file Legal Sex Female 2:19 AM EST Gender Identity Not on file Sexual Orientation Not on file Obstetrics History Plan of Treatment Health Maintenance Due Date Last Done Comments Breast Cancer Screening 1978 DTaP,Tdap,and Td Vaccines (1 - Tdap) 1997 Hepatitis B Vaccines (1 of 3 - 19+ 3-dose series) 1997 Cervical Cancer Screening: P ap Smear 06/15/1999 Depression Screening 02/19/2024 COVID-19 Vaccine ( - 2023-2 5 season) 2024 Influenza Vaccine (#1) 2024 RSV Immunization Adult Patie nts (1 - 1-dose 75+ series) 2053 HIB Vaccines Aged Out No longer eligi [...] patient's age to complete this topic Meningococcal B Vaccine Aged Out No l onger eligible based on patient's age to complete this topic Pneumococcal Vaccine: Pediat rics (0 to 5 Years) and At-Risk Patients (6 to 49 Years) Aged Out No longer eligible b ased on patient's age to complete this topic RSV Immunization Patients Un esteban 20 months Aged Out No longer eligible b ased on patient's age to complete this topic Varicella Vaccines Aged Out No longer eligible based on patient's age to complete this topic Care Teams Grinder Machine Setter Relationship Specialty Start Date End Date Eduardo Hernandez MD [address] [place] [address] [address] [facility] [place] [address] PCP - General Internal Medicine 07/31/18
--- NOTE | 2024-11-19 04:52 | PC.NURSE ---
improvement of hives after being medicated. provider into assess pt.
--- NOTE | 2024-11-19 05:23 | PC.NURSE ---
Iv removed, reviewed discharge instructions with pt, pt verbalized understanding.
[2024-11-19 05:25] VITALS: BP 103/75; PULSE 84; RESP 20; TEMP 36.1; O2SAT 100
== END 2024-11-19 05:25 | disposition home or self-care (01) ==
PROVIDERS: Emergency Provider Emergency Medicine; PCP Internal Medicine
DX: L50.8 Other urticaria (principal); Z79.899 Other long term (current) drug therapy
CPT/HCPCS: 93005; 96374; 96375; 99284; J1200; J1308; J2919

== ENCOUNTER → 2024-11-19 02:46 | Outpatient (BNV) | payer MEDICAID, SELFPAY | PROVIDERS: Emergency Provider Emergency Medicine; PCP Internal Medicine; Visit Provider Internal Medicine | DX: R07.9 Chest pain, unspecified (principal) | CPT/HCPCS: 93010 ==

== ENCOUNTER 2024-11-27 15:23 | Outpatient (AMB) | payer OTHER, SELFPAY ==
--- NOTE | 2024-11-27 15:34 | MHC.PC.OV ---
Vital Signs 11/27/24 15:35 Height 5 ft 7 in Weight 173 lb 2 oz BMI 27.1 BP 110/76 Blood Pressure Location Lt brachial Position Sitting Pulse 72 Pulse Source Pulse Oximeter Temp 96.9 F Temp Source Temporal Artery Scan Pulse Oximetry (%) 98 Oxygen Delivery Method Room Air Intake Visit Reasons: [facility] 11/19 Intake Note: Patient is here to follow-up after a visit the emergency department at [facility] on 11/19/24. Aboriginal Liaison Officer Required: Yes Aboriginal Liaison Officer Language: Recapper Name: Dante ([id number]) Information Interpreted: non-clinical & clinical Computer Tape Librarian: Not Required per policy Accompanied by: Self / Same As Patient Allergies aspirin (ASPIRIN) Allergy (Severe, Verified 11/27/24 15:35) Rash penicillin V Allergy (Severe, Verified 11/27/24 15:35) rash shrimp Allergy (Severe, Verified 11/27/24 15:35) anaphlaxysis tape of ekg trace Allergy (Severe, Uncoded 11/27/24 15:35) rash Tobacco use date assessed: 11/27/24 Dental Screening Dental Screen Date: 11/27/24 Did you have a dental visit in the last 12 months?: No Did you have a dental problem in the last 6 months where you did not have access to dental care?: No Was dental information given to patient?: No HPI HPI Comments History of Present Illness Details 44 y/o Female patient who presents to the clinic today for EDF. Pt was admitted at [facility] on 11/19 for an evaluation and treatment of diffuse urticaria pruritic rash. 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 Reports attempting Benadryl, Benadryl gel, and Zyrtec without significant relief. Reports that she is Allergic to Zyrtec because her symptoms got worse right after she took it. Pt originally went to [facility] for the symptoms the same day and was given prednisone 40 mg without relief of symptoms - that's why she decided to come to [facility]. She was discharged home on Prednisone Taper, Pepcid and Benadrly. Today reports that Rash has resolved but still has Itching. Denies SOB, Wheezing, CP, Facial Edema or throat tightness. She though reports Some mild throat pain. [facility] Medical History (Updated 11/27/24 @ 16:39 by Mayra Puente NP) Acute urticaria Precordial chest pain Dizziness Ear discomfort Diarrhea Enterocolitis Sinusitis Surgical History H/O colonoscopy History of esophagogastroduodenoscopy (EGD) Family History Father Cancer Mother Diabetes Maternal Grandmother Cancer Colon cancer Paternal Grandmother Cancer Uterine cancer Social History (Updated 11/27/24 @ 15:40 by ROGERS Ross) Housing: Apartment Alcohol intake: current Alcohol intake frequency: holidays/special occasions only Patient Tobacco Use Status: Never used Tobacco e-Cigarette/Vaping Use: Never Used Second Hand Smoke Exposure: No service: No Current occupational status: unemployed Cognitive needs: No Hearing needs: No Vision needs: No Female Reproductive History Menstrual Age of Menarche: 12 Questionnaire PHQ-9 Over the last 2 weeks, how often have you been bothered by any of the following problems? 1. Little interest or pleasure in doing things: several days 2. Feeling down, depressed, or hopeless: more than half the days 3. Trouble falling or staying asleep, or sleeping too much: more than half the days 4. Feeling tired or having little energy: several days 5. Poor appetite or overeating: several days 6. Feeling bad about yourself - or that you are a failure or have let yourself or your family down: not at all 7. Trouble concentrating on things, such as reading the newspaper or watching television: several days 8. Moving or speaking so slowly that other people could have noticed. Or the opposite - being so fidgety or restless that you have been moving around a lot more than usual: not at all 9. Thoughts that you would be better off or of hurting yourself in some way: not at all Total score: 8 Depression Screening Interpretation: Positive Depression Screening Done: Yes Source: Developed by Drs. Rony Martinez, Avani Alvarze, Alfredo Banda and colleagues, with an educational jocelyne from [employer]. Thrive Questionnaire Date Thrive assessed: 11/27/24 I am a: Patient What is your living situation today?: I have a steady place to live Within the past 12 months, did the food you bought not last and you didn't have the money to get more?: I choose not to answer this question Within the past 12 months, did you worry whether your food would run out before you got money to buy more?: I choose not to answer this question Do you have trouble paying for medicines?: No Do you have trouble getting transportation to medical appointments?: No Do you have trouble paying your heating and electricity bill?: I choose not to answer this question Do you have trouble taking care of your child, family member or friend?: I choose not to answer this question Do you have trouble with day-to-day activities such as bathing, preparing meals, shopping, managing finances, etc.?: No Are you currently unemployed and looking for a job?: No Are you interested in more education?: No Please select the resources that you would like help with: None Currently or been in a relationship where the following occur: No concerns reported THRIVE Score: 0 AUDIT C Alcohol Use Questionnaire (AUDIT-C) 1. How often do you have a drink containing alcohol?: Monthly or less 2. How many drinks containing alcohol do you have on a typical day when you are drinking?: 3 or 4 3. How often do you have six or more drinks on one occasion?: Monthly Total Score: 4 JOCELYNE-7 AMB Questionnaire JOCELYNE-7 Date JOCELYNE - 7 assessed: 11/27/24 Feeling nervous, anxious, or on edge: 0 = Not at all Not being able to stop or control worryin = Not at all Worrying too much about different things: 0 = Not at all Trouble relaxin = Not at all Being so restless that it is hard to sit still: 0 = Not at all Becoming easily annoyed or irritable: 0 = Not at all Feeling afraid as if something awful might happen: 0 = Not at all Total JOCELYNE-7 score (0-4 normal; 5-9 mild; 10-14 moderate; 15-21 severe): 0 Source: Developed by Drs. Rony Martinez, Avani Alvarez, Alfredo Banda and colleagues, with an educational jocelyne from [employer]. Review of Systems Const All systems reviewed & are unremarkable except as noted in HPI and below Physical exam (Primary Care) Vital Signs: Last Vital Signs Temp 96.9 F 11/27/24 15:35 Pulse 72 11/27/24 15:35 BP 110/76 11/27/24 15:35 Pulse Ox 98 11/27/24 15:35 Oxygen Delivery Method Room Air 11/27/24 15:35 BMI result Body Mass Index 27.1 Tobacco/Smoking Status: Tobacco use Status Tobacco use date assessed 11/27/24 11/27/24 15:41 Patient Tobacco Use Status Never used Tobacco 11/27/24 15:41 e-Cigarette/Vaping Use Never Used 11/27/24 15:41 PHQ-9: PHQ-9 Score PHQ-9: Total score 8 11/27/24 15:41 Depression Screening Interpretation: Positive Thrive Assessment: Date of Thrive Assessment Date Thrive assessed 11/27/24 11/27/24 15:41 Currently or been in a relationship where the following occur: No concerns reported Const General: no acute distress Orientation/consciousness: patient oriented x3 Limitations: language barrier HENMT Head: Yes normocephalic Face and sinus: Yes normal facial exam Mouth: lip normal and moist mucous membranes Throat: Yes uvula midline Resp Effort & Inspection: normal respiratory effort Cardio Rhythm: regular rhythm Skin General skin exam: no rashes or lesions noted, dry skin and no erythema Neuro General: patient oriented x3, gait normal and moves all extremities Coding Level of Care Code Est Pt Level 4 (51983) Diagnoses Acute urticaria L50.8 Time Spent (min) 20 Assessment & Plan Assessment & Plan (1) Acute urticaria: Code(s): L50.8 - Other urticaria Category: Medical Plan: Resolved. Continue on Steroid Taper, Pepcid and Benadrly at bedtime. Will refer to Allergy clinic. Gave Patient a work letter asking if she could be transfered to different Dept - probably allergic to the Candle Wax. Orders: Referrals Allergy & Immunology Referral L50.8 - Other urticaria
[2024-11-27 15:35] VITALS: BP 110/76; PULSE 72; TEMP 36.1; O2SAT 98; BMI 27.1
== END 2024-11-27 16:17 | disposition home or self-care (01) ==
LOC: HO.HMCH 15:24
PROVIDERS: PCP Internal Medicine; Visit Provider Nurse Practitioner Family
DX: L50.8 Other urticaria (principal)

== ENCOUNTER → 2024-11-27 15:23 | Outpatient (BNVA) | payer OTHER, SELFPAY | PROVIDERS: PCP Internal Medicine; Visit Provider Nurse Practitioner Family | DX: L50.8 Other urticaria (principal) | CPT/HCPCS: 99212 ==

== ENCOUNTER 2024-12-09 15:45 | Outpatient (AMB) | payer OTHER, SELFPAY ==
[2024-12-09 16:34] VITALS: BP 114/72; PULSE 75; O2SAT 98; BMI 27.7
--- NOTE | 2024-12-09 16:34 | MHC.PC.OV ---
Vital Signs 12/09/24 16:34 Height 5 ft 7 in Weight 177 lb BMI 27.7 BP 114/72 Blood Pressure Location Lt brachial Position Sitting Pulse 75 Pulse Source Pulse Oximeter Pulse Oximetry (%) 98 Oxygen Delivery Method Room Air Intake Visit Reasons: f/u ?? Insurance Application Investigator Required: No Accompanied by: Self / Same As Patient Allergies aspirin (ASPIRIN) Allergy (Severe, Verified 12/09/24 16:52) Rash penicillin V Allergy (Severe, Verified 12/09/24 16:52) rash shrimp Allergy (Severe, Verified 12/09/24 16:52) anaphlaxysis tape of ekg trace Allergy (Severe, Uncoded 12/09/24 16:52) rash Medication List - Last Reconciled 12/09/24 by Fiona Zhang MD bisacodyl (Laxative (bisacodyl)) 10 mg PO BEDTIME bupropion HCl XL 150 mg PO QAM 90 days buspirone 5 mg PO TID clotrimazole-betamethasone 1-0.05 % 1 appl topical BID 2 weeks famotidine (Pepcid) 20 mg PO BID 5 days fluoxetine 20 mg PO DAILY gabapentin 300 mg PO BEDTIME 90 days hydrocortisone 1% (Anti-Itch (hydrocortisone)) 1 appl topical TID PRN 30 days hydrocortisone 2.5% (Proctosol HC) 1 appl OR BID PRN linaclotide (Linzess) 72 mcg PO QAM lorazepam 0.5 mg PO BID PRN meclizine 25 mg PO DAILY methocarbamol 750 mg PO BID PRN 30 days oxycodone 5 mg PO Q6H PRN pantoprazole 40 mg PO DAILY 90 days prednisone 10 mg PO DIRECTED Tobacco use date assessed: 12/09/24 Dental Screening Dental Screen Date: 12/09/24 HPI HPI Comments History of Present Illness Details The patient is a 44-year-old female presenting with a rash and concerns about anxiety and depression management. The patient reports allergic reactions to aspirin, penicillin, and shrimp, which manifest as rashes. She has been experiencing a rash recently, which she describes as itchy and persistent. The patient has a history of anxiety and depression, for which she is currently taking bupropion and buspirone. She experienced a recent episode of tachycardia, which was attributed to anxiety after monitoring [facility] a [facility]. She also reports chronic back pain for which she takes gabapentin. Additionally, she has a history of gastroesophageal reflux disease, managed with famotidine and pantoprazole. The patient underwent a sleep study in 2022, which confirmed sleep apnea. She is considering a follow-up with sleep medicine for further evaluation. [facility] Medical History (Updated 12/10/24 @ 07:53 by Fiona Zhang MD) Acute urticaria Precordial chest pain Dizziness Ear discomfort Diarrhea Enterocolitis Sinusitis Surgical History H/O colonoscopy History of esophagogastroduodenoscopy (EGD) Family History Father Cancer Mother Diabetes Maternal Grandmother Cancer Colon cancer Paternal Grandmother Cancer Uterine cancer Social History Housing: Apartment Alcohol intake: current Alcohol intake frequency: holidays/special occasions only Patient Tobacco Use Status: Never used Tobacco Tobacco use type: Cigarette e-Cigarette/Vaping Use: Never Used Second Hand Smoke Exposure: No service: No Current occupational status: unemployed Cognitive needs: No Hearing needs: No Vision needs: No Female Reproductive History Menstrual Age of Menarche: 12 Questionnaire Thrive Questionnaire Date Thrive assessed: 11/27/24 I am a: Patient What is your living situation today?: I have a steady place to live Within the past 12 months, did the food you bought not last and you didn't have the money to get more?: I choose not to answer this question Within the past 12 months, did you worry whether your food would run out before you got money to buy more?: I choose not to answer this question Do you have trouble paying for medicines?: No Do you have trouble getting transportation to medical appointments?: No Do you have trouble paying your heating and electricity bill?: I choose not to answer this question Do you have trouble taking care of your child, family member or friend?: I choose not to answer this question Do you have trouble with day-to-day activities such as bathing, preparing meals, shopping, managing finances, etc.?: No Are you currently unemployed and looking for a job?: No Are you interested in more education?: No Please select the resources that you would like help with: None Currently or been in a relationship where the following occur: No concerns reported THRIVE Score: 0 AUDIT C Alcohol Use Questionnaire (AUDIT-C) 1. How often do you have a drink containing alcohol?: Monthly or less 2. How many drinks containing alcohol do you have on a typical day when you are drinking?: 3 or 4 3. How often do you have six or more drinks on one occasion?: Monthly Total Score: 4 JOCELYNE-7 AMB Questionnaire JOCELYNE-7 Date JOCELYNE - 7 assessed: 11/27/24 Source: Developed by Drs. Rony Martinez, Avani Alvarez, Alfredo Banda and colleagues, with an educational jocelyne from [employer]. Review of Systems Const All systems reviewed & are unremarkable except as noted in HPI and below Card Denies chest pain at rest, Denies chest pain with activity, Denies edema, Denies irregular heart rhythm, Denies claudication, Denies dyspnea, Denies dyspnea on exertion, Denies orthopnea, Denies paroxysmal nocturnal dyspnea and Denies slow heart rate Resp Denies cough, Denies dyspnea and Denies dyspnea on exertion GI Denies abdominal pain, Denies change in bowel habits, Denies excessive flatus, Denies nausea and Denies vomiting Denies urinary incontinence, Denies urinary hesitancy and Denies urinary urgency Physical exam (Primary Care) Vital Signs: Last Vital Signs Pulse 75 12/09/24 16:34 BP 114/72 12/09/24 16:34 Pulse Ox 98 12/09/24 16:34 Oxygen Delivery Method Room Air 12/09/24 16:34 BMI result Body Mass Index 27.7 Tobacco/Smoking Status: Tobacco use Status Tobacco use date assessed 12/09/24 12/09/24 16:37 Patient Tobacco Use Status Never used Tobacco 12/09/24 16:37 Tobacco use type Cigarette 12/09/24 16:45 e-Cigarette/Vaping Use Never Used 12/09/24 16:37 Thrive Assessment: Date of Thrive Assessment Date Thrive assessed 11/27/24 12/09/24 16:37 Currently or been in a relationship where the following occur: No concerns reported Resp Effort & Inspection: normal respiratory effort Auscultation: clear to auscultation bilaterally Cardio Jugular venous distension: no JVD Rate: regular rate Rhythm: regular rhythm Heart sounds: S1 normal heart sound present and S2 normal heart sound present Extrem General: Yes full ROM Coding Level of Care Code Est Pt Level 4 (83357) Complex EM visit Add On G2211 Diagnoses Mild recurrent major depression F33.0 Anxiety F41.9 Tachycardia R00.0 Gastroesophageal reflux disease, unspecified whether esophagitis present K21.9 Esophagitis presence: esophagitis presence not specified Back pain M54.9 Acute urticaria L50.8 COLETTE (obstructive sleep apnea) G47.33 Time Spent (min) 21 Assessment & Plan Assessment & Plan (1) Mild recurrent major depression: Code(s): F33.0 - Major depressive disorder, recurrent, mild Category: Medical (2) Anxiety: Code(s): F41.9 - Anxiety disorder, unspecified Category: Medical (3) Tachycardia: Code(s): R00.0 - Tachycardia, unspecified Category: Medical (4) GERD (gastroesophageal reflux disease): Code(s): K21.9 - Gastro-esophageal reflux disease without esophagitis Category: Medical Qualifiers: Esophagitis presence: esophagitis presence not specified Qualified Code(s): K21.9 - Gastro-esophageal reflux disease without esophagitis (5) Back pain: Code(s): M54.9 - Dorsalgia, unspecified Category: Medical (6) Acute urticaria: Code(s): L50.8 - Other urticaria Category: Medical (7) COLETTE (obstructive sleep apnea): Code(s): G47.33 - Obstructive sleep apnea (adult) (pediatric) Category: Medical Plan Plan 1. Rash The patient reports a persistent and itchy rash, possibly related to known allergies to aspirin, penicillin, and shrimp. She has been prescribed prednisone and Vaseline for management. 2. Anxiety The patient experiences anxiety, which has led to episodes of tachycardia. She is currently taking buspirone for anxiety management. 3. Depression The patient is being treated with bupropion for depression. 4. Chronic Back Pain The patient reports chronic back pain and is taking gabapentin for symptom relief. 5. Gastroesophageal Reflux Disease The patient is managing gastroesophageal reflux disease with famotidine and pantoprazole. 6. Sleep Apnea The patient underwent a sleep study in 2022, confirming sleep apnea. A follow-up with sleep medicine is being considered for further evaluation. Orders: Orders Vitamin B12 and Folate 4 Months E53.8 - Deficiency of other specified B group vitamins Vitamin D 25-OH Total 4 Months E55.9 - Vitamin D deficiency, unspecified Comprehensive Voca. Panel Fast 4 Months R00.0 - Tachycardia, unspecified Lipid Panel 4 Months E78.5 - Hyperlipidemia, unspecified IRON PROFILE 4 Months D64.9 - Anemia, unspecified Complete Blood Count Auto Diff 4 Months D64.9 - Anemia, unspecified Thyroid Stimulating Hormone 4 Months R00.0 - Tachycardia, unspecified Referrals Sleep Medicine Referral G47.33 - Obstructive sleep apnea (adult) (pediatric) Medications: New omeprazole 20 mg PO DAILY 90 caps 1RF 90 days Changed From fluoxetine 20 mg PO DAILY To fluoxetine 20 mg PO DAILY 90 caps 1RF 90 days Refilled gabapentin 300 mg PO BEDTIME 90 caps 1RF 90 days Discontinued pantoprazole Discontinued Reason: Patient Completed Course 40 mg PO DAILY 90 days 90 tabs 1RF
--- OUTSIDE RECORDS SUMMARY | 2024-12-09 21:54 | XMS_ITS | Encounter Summary ---
Author Organization [facility] Address [address] [facility] [address] [place] [address] Phone Care Team Providers Care Blasting Coal Miner Name Role Phone Fiona Hagen MD Primary Care Provid er Encounter Details Date Type Department Care Team (Late st Contact Info) Description 11/16/2024 Procedure Pass [facility], Ct Scan - [address] [address] Social History Tobacco Use Types Packs/Day Years [...] 11/18/2024 8:02 PM Roxanne Guerra RN * [place]az Suicide Severity Rating Scale (Screener/Recent Self-Report) Question Answer Date of Assessment Author 1. Wish to be (Past 1 Month) No 025 8:02 PM Roxanne Guerra RN 2. Non-Specific Active Suici lcuiano Thoughts (Past 1 Month) No 11/18/2024 8:02 PM Roxanne Guerra RN 6. Suicidal Behavior (Lifetime) No 8:02 PM Roxanne Guerra RN documented as of this encounter Plan of Treatment Not on file documented as of this encounter Visit Diagnoses Not on filedocumented in this encounter Care Teams Blasting Coal Miner Relationship Specialty Start Date End Date Fiona Hagen MD [address] [place] [id number] PCP - General Internal Medicine 03/10/21 documented as of this encounter Additional Source Comments The information contained in this document represents components of the legal health record. It is not the complete legal health record.[facility]
--- OUTSIDE RECORDS SUMMARY | 2024-12-09 21:54 | XMS_ITS | Clinical Summary ---
Author Organization [facility] Address [address] [place] [id number] Care Team Providers Care Mechanical Equipment Sales Engineer Name Role Phone Eduardo Hernandez MD Primary Care Provider [phone] Surgical History Surgery Date Site/Laterality Comments OTHER SURGICAL HISTORY PROCEDURE: DENIES PREVIOUS SURGERY Medical History Medical History Date Comments Herniation of cervical inter vertebral disc with radiculopathy DX:Herniation of cervical intervertebral disc with radiculopathy Chronic low back pain 09/24/2016 DX:Chronic low back pain; COMMENT: Work injury 2013 Tinea pedis 09/24/2016 DX:Tinea pedis Esophageal reflux 09/24/2016 DX:Esophageal reflux Anxiety 12/25/2016 DX:Anxiety; COMM ENT: F/u [facility] Family History Medical History Relation Name [...] age to complete this topic Care Teams Mechanical Equipment Sales Engineer Relationship Specialty Start Date End Date Eduardo Hernandez MD [address] [place] [address] [address] [facility] [place] [address] PCP - General Internal Medicine 07/31/18
--- OUTSIDE RECORDS SUMMARY | 2024-12-09 21:54 | XMS_ITS | Clinical Summary ---
Author Organization [facility] Address [address] [place] [address] [place] [id number] Phone Care Team Providers Care Sales Service Executive Name Role Phone Fiona Hagen MD Primary Care Provid er Allergies Active Allergy Reactions Criticality Noted Date Comments Adhesive 03/10/2021 From ECG leads Aspirin 03/10/2021 Penicillins 03/10/2021 Shellfish Containing Products 2024 Medications morphine (MSIR) 15 MG tablet Take 0.5 tablets (7.5 mg total) by mouth every 4 (four) hours as needed for pain (specific location in comments). Partial fill ok 5 tablet 2 Active predniSONE (DELTASONE) 20 mg tablet (To-Go) Take 40 mg (2 tablets) by mouth once daily for 4 days. 5 11/23/19 25 Encounters Date Type Department Care Team Description 11/18/2024 8:10 PM EDT - 11/18/2024 11:11 PM EDT Emergency [facility] Emergency [address] [place] [address] Discharge Disposition: Home or Self Care 11/16/2024 10:03 AM EDT - 11/16/2024 4:37 PM EDT Emergency [facility] Emergency [address] [place] [address] Oliverio Grigsby MD Discharge Disposition: Home or Self Care 11/16/2024 Procedure Pass [facility], Ct Scan - [facility] [address] [place] [address] from Last 3 Months Social History Tobacco [...] VACCINE (#1) 2024 COVID-19 VACCINE (1 - 2024-2 6 season) 2024 SCREENING FOR DIABETES 11/17/2027 11/16/2024 [...] clinician's provided indication for this examination in [facility]:Abdominal pain, acute. TECHNIQUE: Multidetector-row CT of [...] clinician's provided indication for this examination in [facility]: Pain COMPARISON: XR CHEST PORTABLE FINDINGS: Devices/Tubes/Lines: None. Lungs: No focal consolidation or pulmonary edema. Pleura: No pleural effusion or pneumothorax. Heart/Mediastinum: Normal heart and mediastinum. Bones/Soft Tissues: No significant abnormality. Procedure Note Alee Cisneros MD - 11/16/2024 XR CHEST PORTABLE Referring clinician's provided indication for this examination in [facility]:Pain COMPARISON: XR CHEST PORTABLE FINDINGS: Devices/Tubes/Lines: None. Lungs: No focal consolidation or pulmonary edema. Pleura: No pleural effusion or pneumothorax. Heart/Mediastinum: Normal heart and mediastinum. Bones/Soft Tissues: No significant abnormality. IMPRESSION: No acute abnormality. Oliverio Grigsby MD IMG XR CHEST F inal Result * Troponin (11/16/2024 11:02 AM EDT) Only the most recent of2 resultswithin the time period is included. [facility] Troponin-T, HS Gen5 <6 0 - 9 ng/L [facility] Blood 11/16/2024 11:0 2 AM EDT 11/16/2024 11:05 AM EDT Oliverio Grigsby MD LAB BLOOD ORDERAB LES Final Result [address] [address] * LFTs (hepatic panel) (11/16/2024 10:10 AM EDT) [facility] ALKALINE PHOSPHATASE 80 39 - 117 U/L [facility] TOTAL BILIRUBIN 0.5 0.0 - 1.2 mg/dL [facility] DIRECT BILIRUBIN <0.1 0.0 - 0.2 mg/dL [facility] Bilirubin (Indirect) NOT CALCULATED 0 - 1.5 mg/dL [facility] AST 19 0 - 37 U/L [facility] ALT 11 0 - 40 U/L [facility] TOTAL PROTEIN 7.6 6.5 - 8.0 g/dL [facility] ALBUMIN 4.1 3.9 - 4.8 g/dL [facility] GLOBULIN 3.5 1 - 4.8 g/dL [facility] A/G Ratio 1.17 1.00 - 4.80 RATIO [facility] 11/16/2024 10:1 0 AM EDT 11/16/2024 10:21 AM EDT Oliverio Grigsby MD LAB BLOOD ORDERAB LES Final Result [address] [address] * HCG (tumor marker) (11/16/2024 10:10 AM EDT) [facility] HCG BETA 0.6 mIU/mL [facility] Comment: Interpretation: FEMALE: Negative: Less than or equal to 1 mIU/mL. 4 Weeks Post Conception: 9.5 - 750 mIU/mL. 12 Weeks Post Conception: [id number] - [address] mIU/mL. Test Methodology Healthy Humans e801 Patient results determined by assays using different manufacturers or methods may not be comparable. 11/16/2024 10:1 0 AM EDT 11/16/2024 10:21 AM EDT us Oliverio Grigsby MD LAB BLOOD ORDERAB LES Final Result [facility] [address] [place] [address] * CBC and differential (11/16/2024 10:10 AM EDT) WBC 9.90 4.00 - 11.00 K/uL [facility] RBC 4.30 4.00 - 5.20 M/uL [facility] HGB 12.6 12.0 - 16.0 g/dL [facility] HCT 37.9 36.0 - 46.0 % [facility] PLT 268 150 - 450 K/uL [facility] MCV 88.1 80.0 - 100.0 fL [facility] MCH 29.3 27.0 - 31.0 pg [facility] MCHC 33.2 32.0 - 36.0 g/dL [facility] RDW 13.0 11.5 - 14.5 % [facility] MPV 9.9 8.4 - 12.0 fL [facility] NRBC 0.00 0.00 /100 WBCs [facility] ABSOLUTE NRBC 0.00 0.00 K/uL [facility] DIFF METHOD Auto [facility] NEUTS 70.1 48.0 - 76.0 % [facility] LYMPHS 19.6 18.0 - 41.0 % [facility] MONOS 6.5 4.0 - 11.0 % [facility] EOS 2.9 0.0 - 5.0 % [facility] BASOS 0.5 0.0 - 1.5 % [facility] Granulocytes, immature (%) 0.4 0.0 - 0.9 % [facility] ABSOLUTE NEUTS 6.94 1.92 - 7.60 K/uL [facility] ABSOLUTE LYMPHS 1.94 0.72 - 4.10 K/uL [facility] ABSOLUTE MONOS 0.64 0.16 - 1.10 K/uL [facility] ABSOLUTE EOS 0.29 0.00 - 0.50 K/uL [facility] ABSOLUTE BASOS 0.05 0.00 - 0.15 K/uL [facility] Granulocytes, immature 0.04 0.00 - 0.09 K/uL [facility] Blood 11/16/2024 10:1 0 AM EDT 11/16/2024 10:21 AM EDT Oliverio Grigsby MD LAB BLOOD ORDERAB LES Final Result Performing Organization Address [facility]/ZIP Co de Phone Number [address] [address] * Magnesium (11/16/2024 10:10 AM EDT) MAGNESIUM 2.0 1.6 - 2.6 mg/dL [facility] 11/16/2024 10:1 0 AM EDT 11/16/2024 10:21 AM EDT Oliverio Grigsby MD LAB BLOOD ORDERAB LES Final Result [address] [address] * Lipase (11/16/2024 10:10 AM EDT) LIPASE 27 16 - 63 U/L [facility] 11/16/2024 10:1 0 AM EDT 11/16/2024 10:21 AM EDT Oliverio Grigsby MD LAB BLOOD ORDERAB LES Final Result [address] [place] [address] * Basic metabolic panel (11/16/2024 10:10 AM EDT) SODIUM 139 133 - 146 mmol/L [facility] CHLORIDE 105 96 - 108 mmol/L [facility] POTASSIUM 4.0 3.3 - 5.1 mmol/L [facility] CO2 22 21 - 35 mmol/L [facility] BUN 13 6 - 19 mg/dL [facility] CREATININE 0.70 0.5 - 1.5 mg/dL [facility] GLUCOSE 88 70 - 99 mg/dL [facility] CALCIUM 9.5 8.4 - 10.3 mg/dL [facility] EGFR 108 >59 mL/min/1.7 3m2 [facility] Comment:Estimated glomerular filtration rate calculated using the CKD-EPI refit equation. ANION GAP 16 10 - 20 mmol/L [facility] Blood 11/16/2024 10:1 0 AM EDT 11/16/2024 10:21 AM EDT us Oliverio Grigsby MD LAB BLOOD ORDERAB LES Final Result [address] [address] * ECG 12-LEAD (11/16/2024 9:59 AM EDT) Ventricular Rate EKG/MIN 80 BPM [facility] Atrial Rate 80 BPM [facility] SC Interval 134 ms [facility] QRS Duration 84 ms [facility] QT Interval 420 ms [facility] QTC Interval 484 ms [facility] P Shock 73 degrees [facility] R Wave Shock 64 degrees [facility] T Wave Shock 59 degrees [facility] 11/16/2024 9:59 AM EDT 11/17/2024 10:45 AM EDT Narrative [facility] - 11/17/2024 10:45 AM EDT Normal sinus rhythm Prolonged QT Abnormal ECG When compared with ECG of 10-Mar-2021 21:29, No significant change was found Confirmed by Rene Kerns ([id number]) on 11/17/2024 10:45:20 AM us Oliverio Grigsby MD ECG ORDERABLES F inal Result [facility] from Last 3 Months Insurance [employer] [place] [address] [address] [employer] [place] [employer] [place] [employer] Care Teams Sales Service Executive Relationship Specialty Start Date End Date Fiona Hagen MD [address] [place] [address] PCP - General Internal Medicine 03/10/21 Additional Source Comments The information contained in this document represents components of the legal health record. It is not the complete legal health record.[facility]
== END 2024-12-09 17:03 | disposition home or self-care (01) ==
LOC: HO.HMCH 15:46
PROVIDERS: Visit Provider Internal Medicine
DX: F33.0 Major depressive disorder, recurrent, mild (principal); F41.9 Anxiety disorder, unspecified; R00.0 Tachycardia, unspecified; K21.9 Gastro-esophageal reflux disease without esophagitis; M54.9 Dorsalgia, unspecified; L50.8 Other urticaria; G47.33 Obstructive sleep apnea (adult) (pediatric)

== ENCOUNTER → 2024-12-09 15:45 | Outpatient (BNVA) | payer OTHER, SELFPAY | PROVIDERS: Visit Provider Internal Medicine | DX: F33.0 Major depressive disorder, recurrent, mild (principal); F41.9 Anxiety disorder, unspecified; M54.9 Dorsalgia, unspecified; G89.29 Other chronic pain; R00.0 Tachycardia, unspecified; K21.9 Gastro-esophageal reflux disease without esophagitis; L50.8 Other urticaria; G47.33 Obstructive sleep apnea (adult) (pediatric) | CPT/HCPCS: 99212 ==